=== PATIENT | male | born 1955 | race Hispanic/Latino ===

== ENCOUNTER 2016-09-25 14:31 | Inpatient (IN) | payer OTHER ==
[2016-09-25 14:41] VITALS: BMI 30.7
[2016-09-25 14:59] LABS: ADD MANUAL DIFF? NO
[2016-09-25 15:09] LABS: BASO # 0.02 K/mm3 (0.0-2.0); BASO % 0.4 % (0.0-3.0); GRAN # 4.18 (1.4-6.5); HEMATOCRIT 37.8 % (42.0-52.0); LYMPH # 0.9 (1.2-3.4); LYMPH % 15.8 % (22.0-35.0); MEAN CELL VOLUME 92.2 fL (80.0-105.0); MEAN CORPUSCULAR HEMOGLOBIN 33.7 pg (25.0-35.0); MEAN CORPUSCULAR HGB CONC 36.5 g/dl (31.0-37.0); MEAN PLATELET VOLUME 9.7 fl (7.0-11.0); MONO # 0.4 (0.1-0.6); MONO % 7.8 % (1.0-6.0); PLATELET COUNT 74 10^3/uL (120.0-450.0); WHITE BLOOD COUNT 5.5 10^3/ul (4.5-11.0)
--- NOTE | 2016-09-25 15:12 | ED PDOC ---
Arrival/HPI - General Chief Complaint: Psychiatric Evaluation Time Seen by Provider: 09/25/16 14:35 Historian: Patient - History of Present Illness Narrative History of Present Illness (Text): 09/25/16 15:12 61 year old male presents to the emergency department with depression and suicidal ideation today. He states he has been depressed since his about a year ago. Patient reports suicidal ideation, no plan, stating "I don't care if I live or ." He states he has been drinking excessive alcohol daily. Patient also reports black stool for the past 5 days. No other complaints at this time. Time/Duration: > week Symptom Onset: Gradual Symptom Course: Unchanged Modifying Factors (Text): None Associated Symptoms (Text): None Past Medical History - Provider Review Nursing Documentation Reviewed: Yes - Past History Past History: Non-Contributing - Infectious Disease Hx of Infectious Diseases: None - Cardiac Hx Hypertension: Yes - Pulmonary Hx Pneumonia: Yes Hx Pulmonary Embolism: Yes Other/Comment: L dvt - HEENT Hx HEENT Disorder: Yes (eyeglasees) - Endocrine/Metabolic Hx Hypothyroidism: Yes - Musculoskeletal/Rheumatological Hx Falls: Yes Hx Unsteady Gait: Yes - Gastrointestinal Hx Gastrointestinal Disorders: Yes - Genitourinary/Gynecological Hx Hematuria: Yes Hx Prostate Problems: Yes - Psychiatric Hx Depression: Yes Hx Substance Use: No Other/Comment: Patient stated that he was dignosed with a psychiatric disorder when she was actively addicted to alcohol but cannot rember what he was dignosed with - Surgical History Other/Comment: Bowel Resection, L lung lobectomy - Anesthesia Hx Anesthesia: Yes Hx Anesthesia Reactions: No Hx Malignant Hyperthermia: No Family/Social History - Physician Review Nursing Documentation Reviewed: Yes Family/Social History: Unknown Family HX Smoking Status: Current Some Days Smoker Hx Alcohol Use: Yes (13 yr HX last drink 01/05/93) Hx Substance Use: No Allergies/Home Meds Allergies/Adverse Reactions: Allergies No Known Allergies Allergy (Verified 12/18/15 09:11) Home Medications: Home Meds Medication Instructions Recorded Confirmed Atorvastatin [Lipitor] 20 mg PO DAILY 12/18/15 04/26/16 Apixaban [Eliquis] 2.5 mg PO DAILY 03/29/16 04/26/16 Folic Acid 1 mg PO DAILY 03/29/16 04/26/16 Review of Systems - Physician Review All systems were reviewed & negative as marked: Yes - Review of Systems Respiratory: absent: SOB Cardiovascular: absent: Chest Pain Gastrointestinal: Stool Changes (black stool) Psychiatric: Depression, Suicidal Ideation (no plan) Physical Exam Vital Signs Reviewed: Yes Vital Signs Temp Pulse Resp BP Pulse Ox 09/25/16 16:33 67 18 122/72 96 09/25/16 14:31 99.1 F 75 18 142/83 95 Temperature: Afebrile Blood Pressure: Normal Pulse: Regular Respiratory Rate: Normal Appearance: Positive for: Well-Appearing, Non-Toxic, Comfortable Pain Distress: None Mental Status: Positive for: Alert and Oriented X 3 - Systems Exam Head: Present: Atraumatic, Normocephalic Pupils: Present: PERRL Extroacular Muscles: Present: EOMI Conjunctiva: Present: Normal Mouth: Present: Moist Mucous Membranes Neck: Present: Normal Range of Motion Respiratory/Chest: Present: Clear to Auscultation, Good Air Exchange. No: Respiratory Distress, Accessory Muscle Use Cardiovascular: Present: Regular Rate and Rhythm, Normal S1, S2. No: Murmurs Abdomen: Present: Normal Bowel Sounds. No: Tenderness, Distention, Peritoneal Signs Rectal: Present: Other (Hemmocult positive). No: Gross Blood, Melena Back: Present: Normal Inspection Upper Extremity: Present: Normal Inspection. No: Cyanosis, Edema Lower Extremity: Present: Normal Inspection. No: Edema Neurological: Present: GCS=15, CN II-XII Intact, Speech Normal Skin: Present: Warm, Dry, Normal Color. No: Rashes Psychiatric: Present: Alert, Oriented x 3, Normal Insight, Normal Concentration Medical Decision Making ED Course and Treatment: EKG shows NSR at 71 BPM with normal axis, normal intervals, no acute ischemia. Interpreted by me. 09/25/16 16:[address] Kimble who will admit - Lab Interpretations Lab Results: 09/25/16 14:40 09/25/16 14:40 Lab Results 09/25/16 15:56: Urine Opiates Screen Negative, Urine Methadone Screen Negative, Ur Barbiturates Screen Negative, Ur Phencyclidine Scrn Negative, Ur Amphetamines Screen Negative, U Benzodiazepines Scrn Negative, U Oth Cocaine Metabols Negative, U Cannabinoids Screen Negative 09/25/16 15:56: Urine Color Yellow, Urine Appearance Clear, Urine pH 6.5, Ur Specific [place] <= 1.005, Urine Protein Negative, Urine Glucose (UA) Negative, Urine Ketones Negative, Urine Blood Small H, Urine Nitrate Negative, Urine Bilirubin Negative, Urine Urobilinogen 0.2, Ur Leukocyte Esterase Negative, Urine RBC 2 - 5, Urine WBC 0 - 2, Ur Epithelial Cells 1 - 3, Urine Bacteria Rare 09/25/16 14:40: Salicylates < 1 L, Acetaminophen < 10.0 L 09/25/16 14:40: Sodium 138, Potassium 3.7, Chloride 97 L, Carbon Dioxide 20 L, Anion Gap 25 H, BUN 10, Creatinine 0.9, Est GFR ( Amer) > 60, Est GFR ( Non-Af Amer) > 60, Random Glucose 164 H, Calcium 9.1, Total Bilirubin 1.1, AST 101 H, ALT 58 H, Alkaline Phosphatase 95, Total Protein 7.9, Albumin 4.4, Globulin 3.5, Albumin/Globulin Ratio 1.3 09/25/16 14:40: PT 10.9, INR 1.01, APTT 32.4 H 09/25/16 14:40: WBC 5.5 D, RBC 4.10, Hgb 13.8 L, Hct 37.8 L, MCV 92.2, MCH 33.7 , MCHC 36.5, RDW 15.0 H, Plt Count 74 L, MPV 9.7, Gran % 76.0 H, Lymph % (Auto) 15.8 L, [place] % (Auto) 7.8 H, Eos % (Auto) 0.0 L, Baso % (Auto) 0.4, Gran # 4.18 , Lymph # 0.9 L, [place] # 0.4, Eos # 0.0, Baso # 0.02 - RAD Interpretation Radiology Orders: 09/25/16 14:48 CHEST PORTABLE [RAD] Stat - EKG Interpretation Interpreted by ED Physician: Yes Type: 12 lead EKG - Medication Orders Current Medication Orders: Discontinued Medications Sodium Chloride (Sodium Chloride 0.9%) 1,000 mls @ 999 mls/hr IV .Q1H1M STA Stop: 09/25/16 17:09 Last Admin: 09/25/16 16:20 Dose: 999 mls/hr Pantoprazole Sodium (Protonix Inj) 80 mg IVP STAT STA Stop: 09/25/16 16:20 Last Admin: 09/25/16 16:33 Dose: 80 mg Thiamine HCl (Vitamin B1 Inj) 100 mg IV STAT STA Stop: 09/25/16 16:11 Last Admin: 09/25/16 16:22 Dose: 100 mg - Scribe Statement The provider has reviewed the documentation as recorded by the Adelita Rojas Provider Scribe Attestation: All medical record entries made by the Adelita were at my direction and personally dictated by me. I have reviewed the chart and agree that the record accurately reflects my personal performance of the history, physical exam, medical decision making, and the department course for this patient. I have also personally directed, reviewed, and agree with the discharge instructions and disposition. Disposition/Present on Arrival - Present on Arrival Any Indicators Present on Arrival: Yes History of DVT/PE: Yes History of Uncontrolled Diabetes: No Urinary Catheter: No History of Decub. Ulcer: No History Surgical Site Infection Following: None - Disposition Have Diagnosis and Disposition been Completed?: Yes Diagnosis: GI bleed, Suicidal ideation, Alcohol dependence Disposition: HOSPITALIZED Disposition Time: 16:28 Patient Problems: Current Active Problems Problem Status Onset GI bleed Acute Suicidal ideation Acute Alcohol dependence Acute Condition: STABLE
[2016-09-25 15:15] LABS: ALB/GLOB RATIO 1.3 (1.1-1.8); ALKALINE PHOSPHATASE 95 U/L (38-133); ALT/SGPT 58 U/L (7-56); AST/SGOT 101 U/L (15-59); BILIRUBIN,TOTAL 1.1 mg/dL (0.2-1.3); BLOOD UREA NITROGEN 10 mg/dL (7-21); CALCIUM 9.1 mg/dL (8.4-10.5); CARBON DIOXIDE 20 mmol/L (21-33); CHLORIDE 97 mmol/L (98-107); GFR AFRICAN-AMERICAN > 60; GLUCOSE,RANDOM 164 mg/dL (70-110); POTASSIUM 3.7 mmol/L (3.6-5.0); SODIUM 138 mmol/L (132-148); TOTAL PROTEIN 7.9 g/dL (5.8-8.3)
[2016-09-25 15:21] LABS: INR 1.01 (0.93-1.08); PARTIAL THROMBOPLASTIN TIME 32.4 Seconds (23.7-30.8)
--- NOTE | 2016-09-25 15:36 | RAD ---
HISTORY: psych COMPARISON: 04/22/2016 FINDINGS: LUNGS: No interval consolidated. PLEURA: No significant pleural effusion identified, no pneumothorax apparent. CARDIOVASCULAR: Normal. OSSEOUS STRUCTURES: Left posterior rib deformity -postthoracotomy versus other post traumatic rib fractures with resultant deformity - similar-appearing VISUALIZED UPPER ABDOMEN: Normal. OTHER FINDINGS: Elevated left lateral hemidiaphragm consistent with chronic scarring here IMPRESSION: No interval active disease. Chronic changes as above
[2016-09-25] MEDS ORDERED: Sodium Chloride 0.9% 1,000 ML IV STA (16:09)
[2016-09-25] MEDS ORDERED: Thiamine 100 mg/ml Inj IV STA (16:10)
[2016-09-25 16:21] LABS: PH,URINE 6.5 (4.7-8.0); URINE BILIRUBIN NEGATIVE (NEGATIVE); URINE BLOOD SMALL (NEGATIVE); URINE GLUCOSE (UA) NEGATIVE (NEGATIVE); URINE KETONE NEGATIVE (NEGATIVE); URINE LEUKOCYTE ESTERASE NEGATIVE Leu/uL (NEGATIVE); URINE PROTEIN NEGATIVE mg/dL (<30 mg/dL); URINE UROBILINOGEN 0.2 E.U./dL (<1 E.U./dL)
[2016-09-25 16:22] LABS: URINE APPEARANCE CLEAR (CLEAR); URINE COLOR YELLOW (YELLOW)
[2016-09-25 17:14] LABS: URINE BACTERIA RARE (NEG); URINE WBC 0 - 2 /hpf (0-6)
[2016-09-25] MEDS ORDERED: Multivitamin (MVI) 10 ML, Thiamine 100 MG, Folic Acid 1 MG in Dextrose 5% In Water 1,00... IV ONE (17:26)
--- NOTE | 2016-09-25 18:16 | CP.PCM.HP ---
<Gloria Rice - Last Filed: 09/25/16 18:06> History of Present Illness - History of Present Illness History of Present Illness: CC: Suicidal ideations with melena 61 year old male with past medical history of HLD, HTN, hypothyroidism, COPD, AAA, prediabetes, B/L PE and L LE DVT in November on Eliquis, alcohol abuse, depression and diverticulosis presented to hospital with depression and suicidal ideations. Patient states that he has felt depressed since November of 2015 when his . Patient admits to feeing hopeless on a daily basis but has no plan set to hurt himself. He denies having any HI. Patient has attempted suicide once before in 1992 by trying to hang himself. Patient also complained of loose BM x5 today that were black in color. Stool occult done in ED showed black stool. Patient denies having any melenotic stools or bloody stools prior to this. He also c/o of nausea and "gagging" daily without any vomiting. Patient denies having any fevers, chills, CP, SOB, urinary symptoms. Pt drinks on a daily basis multiple shots of liquor and multiple beers. He denies having any history of DTs. PMHx: stated above Sx: partial colectomy, tonsillectomy, partial lung resection NKDA Meds: see JUL PMD: Dr. Ivey Social: Smoked for "many years" and currently smokes. Daily ETOH use, has used IV heroin in past long time ago Present on Admission - Present on Admission Any Indicators Present on Admission: No Review of Systems - Constitutional Constitutional: Chills. absent: Fever - EENT Eyes: absent: Change in Vision, Other Visual Disturbances Nose/Mouth/Throat: absent: Nasal Congestion, Nasal Discharge, Dysphagia, Sore Throat - Cardiovascular Cardiovascular: absent: Chest Pain, Dyspnea, Leg Edema, Pedal Edema - Gastrointestinal Gastrointestinal: Melena (with loose stools ), Nausea. absent: Abdominal Pain, Bloating, Constipation, Diarrhea, Vomiting - Genitourinary Genitourinary: absent: Dysuria, Urinary Frequency - Musculoskeletal Musculoskeletal: absent: Muscle Cramps, Muscle Weakness, Numbness, Tingling - Integumentary Integumentary: absent: Lesions, Rash - Neurological Neurological: absent: Confusion, Convulsions, Numbness - Psychiatric Psychiatric: Depression, Suicidal Ideation. absent: Anxiety Past Patient History - Infectious Disease Hx of Infectious Diseases: None - Past Social History Smoking Status: Current Some Days Smoker Chewing Tobacco Use: No Cigar Use: No Alcohol: > 2 Drinks/Day Drugs: Denies Home Situation {Lives}: Alone - CARDIAC Hx Cardiac Disorders: No Hx Hypertension: Yes - PULMONARY Hx Tuberculosis: No - NEUROLOGICAL HX Cerebrovascular Accident: No Hx Seizures: No - HEENT Hx HEENT Problems: Yes (eyeglasees) - ENDOCRINE/METABOLIC Hx Hypothyroidism: Yes - HEMATOLOGICAL/ONCOLOGICAL Hx Cancer: No Hx Human Immunodeficiency Virus (HIV): No - MUSCULOSKELETAL/RHEUMATOLOGICAL Hx Falls: Yes Hx Unsteady Gait: Yes - GASTROINTESTINAL Hx Gastrointestinal Disorders: Yes - GENITOURINARY/GYNECOLOGICAL Hx Sexually Transmitted Disorders: No - PSYCHIATRIC Hx Depression: Yes Hx Substance Use: No Other/Comment: Patient stated that he was dignosed with a psychiatric disorder when she was actively addicted to alcohol but cannot rember what he was dignosed with - SURGICAL HISTORY Other/Comment: Bowel Resection, L lung lobectomy - ANESTHESIA Hx Anesthesia: Yes Hx Anesthesia Reactions: No Hx Malignant Hyperthermia: No Meds Allergies/Adverse Reactions: Allergies Allergy/AdvReac Type Severity Reaction Status Date / Time No Known Allergies Allergy Verified 12/18/15 09:11 Physical Exam - Constitutional Appears: Non-toxic, No Acute Distress - Head Exam Head Exam: ATRAUMATIC, NORMAL INSPECTION - Eye Exam Eye Exam: EOMI Pupil Exam: PERRL - ENT Exam ENT Exam: Mucous Membranes Moist - Respiratory Exam Respiratory Exam: Clear to Auscultation Bilateral, NORMAL BREATHING PATTERN. absent: Rales, Rhonchi, Wheezes - Cardiovascular Exam Cardiovascular Exam: REGULAR RHYTHM, +S1, +S2. absent: Diastolic murmur, Gallop , Irregular Rhythm, Rubs - GI/Abdominal Exam GI & Abdominal Exam: Normal Bowel Sounds, Soft. absent: Diminished Bowel Sounds , Distended, Firm, Guarding, Rigid, Tenderness - Rectal Exam Rectal Exam: Black Stool (stool occult done by ED physician ) - Extremities Exam Extremities exam: Negative for: pedal edema, tenderness - Neurological Exam Neurological exam: Alert, Oriented x3 - Psychiatric Exam Psychiatric exam: Normal Affect, Normal Mood - Skin Skin Exam: Dry, Intact, Normal Color, Warm Results - Vital Signs Recent Vital Signs: Last Vital Signs Temp 99.1 F 09/25/16 14:31 Pulse 67 09/25/16 16:33 Resp 18 09/25/16 16:33 BP 122/72 09/25/16 16:33 Pulse Ox 96 09/25/16 16:33 - Labs Result Diagrams: 09/25/16 14:40 09/25/16 14:40 Labs: Laboratory Results - last 24 hr 09/25/16 17:00 BBK History Checked Patient has bt Assessment & Plan - Assessment and Plan (Free Text) Assessment: 61 year old male with past medical history of HTN, HLD, COPD, hypothyroidism, depression, diverticulosis, partial colectomy, B/L PE and LE DVT is admitted for GI bleed. Vital signs are stable. On blood work, patient is anemic at hgb 13.8 MCV is 92.9. Patient's baseline is around 14. Patient also has elevated LFTs Ast 101 ALT 58. UDS is negative, ETOH level is 214. In ED, patient receive 80 mg IV stat, NS bolus and thiamine. 1. GI bleed - Admit to tele floor - GI, Dr. Tello is consulted - NPO - Protonix 40 mg IV - Zofran 4 mg IV q6 - CT abd/pelvis - Will recheck CBC at 9 pm 2. ETOH withdrawal - [facility] protocol - Ativan court and prn - Clonidine 0.1 mg IV TID prn 3. Transaminitis - likely 2/2 ETOH - Will check hepatitis panel - hold all hepatotoxic meds 4. Thrombocytopenia - likely 2/2 ETOH - Will hold heparin. - Will consult heme/onc 5. Depression - 1:1 started - Psych, Dr. Landaverde started 6. Hypothyroidism - will check TSH and T4 - Synthroid 200 mcg qd Will hold home medications: lopressor (GI bleed), Eliquis Prophylaxis: SCDs, protonix Case discussed with attending Dr. Coy - Date & Time Date: 09/25/16 Time: 18:19 <Aziza Coy - Last Filed: 09/25/16 21:30> Results - Vital Signs Recent Vital Signs: Last Vital Signs Temp 99.1 F 09/25/16 19:35 Pulse 67 09/25/16 19:35 Resp 18 09/25/16 19:35 BP 122/72 09/25/16 19:35 Pulse Ox 96 09/25/16 19:16 - Labs Result Diagrams: 09/25/16 14:40 09/25/16 14:40 Labs: Laboratory Results - last 24 hr 09/25/16 17:00 Blood Type O POSITIVE Antibody Screen Negative BBK History Checked Patient has bt Attending/Attestation - Attestation I have personally seen and examined this patient.: Yes I have fully participated in the care of the patient.: Yes I have reviewed all pertinent clinical information: Yes Notes (Text): 09/25/16 21:16 61 year old with past medical history of hypertension, dyslipidemia, hypothyroidism, depression, diverticulosis, bilateral PE and DVT on eliquis and history of chronic alcohol abuse who presents today with complaint of depressed mood and suicidal ideation. He also mentions melena x 5 days. He is admitted to medicine for evaluation of GIB. Hemoglobin is 13.8 with platelet of 79. Will repeat h/h later this evening. Transfuse as needed. CT abd/pelvis is ordered. Eliquis is obviously on hold. GI evaluation is requested. Continue with NPO, IVF, and iv protonix. Given he has history of DVT/PE will request for hematology evaluation if question arises down the course when/if to resume anticoagulation. He has thrombocytopenia likely due to ETOH abuse. If this worsens can consider switching to protonix to pepcid. He has elevated LFTs also likely secondary to ETOH abuse. Will monitor and check hepatitis panel. He was counselled on alcohol abstinence. CIWA protocol, banana bag and ativan court/prn ordered for withdrawal symptoms. Psychiatry evaluation requested for depression and SI. Continue with 1:1 observation for now. Aziza Coy MD Hospitalist.
[2016-09-25] MEDS ORDERED: Sodium Chloride 0.9% 100 ML IV SCH (18:41)
[2016-09-25] MEDS ORDERED: Multivitamin (MVI) 10 ML, Thiamine 100 MG, Folic Acid 1 MG in Sodium Chloride 0.9% 1,00... IV ONE (18:42)
--- NOTE | 2016-09-25 19:01 | CARD ---
APPROVED REPORT EKG Measurement Heart [id number] NE [id number] [id number] <Conclusion> Normal sinus rhythm Normal ECG
[2016-09-25] MEDS ORDERED: Pneumococcal 23-Valent Vaccine IM ONE (19:51)
--- NOTE | 2016-09-26 07:28 | CP.PCM.CON ---
<Tayler Mcneal - Last Filed: 09/26/16 08:50> History of Present Illness - History of Present Illness History of Present Illness: Gastroenterology Fellow/PGY4 Consult Note 61 year old male with history of Depression, Suicidal attempt 1992, Hypertension , Hyperlipidemia, Hypothyroidism, Complicated diverticulitis with abscess s/p partial colectomy over five years ago, Alcohol Abuse, Bilateral PE and Left lower extremity DVT 12/2015 on Eliquis, ambulatory dysfunction, severe osteoarthritis with previous use of tramadol leading to altered mentation presenting with black stools. Patient describes a alternating solid and liquid black tarry stools for about four to five episodes yesterday. He notes alternating normal stool one day with a black stool the following day for the last five days. He states this has never occurred before. He started drinking heavily again after his 11/2015. Quantified as a few shots of vodka and a few beers daily with previous cessation of heavy alcohol intake December 1992. Admits to shortness of breath with exertion to stairs living on third floor. Recent fall causing right ribcage bruising. Denies NSAIDs use, nausea, vomiting, hematemesis, abdominal pain, bloating, heartburn. indigestion , dysphagia, odynophagia, diarrhea, constipation, hematochezia, unintentional weight loss, confusion, leg swelling, scleral icterus, jaundice, or abdominal distension. No prior EGD or colonoscopy. 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 yrs ago[watching it], lle dvt - PULMONARY Hx Respiratory Disorders: Yes (pe both lungs) Hx Pneumonia: Yes Hx Tuberculosis: No - NEUROLOGICAL HX Cerebrovascular Accident: No Hx Seizures: No - HEENT Hx HEENT Problems: Yes (eyeglasees) - ENDOCRINE/METABOLIC Hx Hypothyroidism: Yes - HEMATOLOGICAL/ONCOLOGICAL Hx Cancer: No Hx Human Immunodeficiency Virus (HIV): No Other/Comment: e coli staph infections pt does not know where tx by pmd 2016 - INTEGUMENTARY Other/Comment: multiple tatoos, r great toe 0.5 round dry brown wound,rle multiple bruises dry scab to r knee surrounded by red skin, slight swelling both knees - MUSCULOSKELETAL/RHEUMATOLOGICAL Hx Falls: Yes - GASTROINTESTINAL Hx Gastrointestinal Disorders: Yes (tarry stools x 5 days) - GENITOURINARY/GYNECOLOGICAL Hx Prostate Problems: Yes Hx Sexually Transmitted Disorders: No - PSYCHIATRIC Hx Substance Use: No - SURGICAL HISTORY Other/Comment: Bowel Resection due to abcess, L lung lobectomy pt had pneumonia and fluid solidifies to wall of left lung it was removed, procedure in dr ahuja' s office cystoscope - ANESTHESIA Hx Anesthesia: Yes Hx Anesthesia Reactions: No Hx Malignant Hyperthermia: No Meds Allergies/Adverse Reactions: Allergies Allergy/AdvReac Type Severity Reaction Status Date / Time No Known Allergies Allergy Verified 12/18/15 09:11 - Medications Medications: Current Medications Clonidine HCl (Catapres) 0.1 mg PO TID PRN PRN Reason: Systolic Blood Pressure Levothyroxine Sodium (Synthroid) 200 mcg PO ACB [facility] Lorazepam (Ativan) 2 mg IVP Q6H [facility] PRN Reason: Protocol Last Admin: 09/26/16 01:58 Dose: Not Given Lorazepam (Ativan) 2 mg IVP Q3H PRN; Protocol PRN Reason: Agitation Ondansetron HCl (Zofran Inj) 4 mg IVP Q6H PRN PRN Reason: Nausea/Vomiting Pantoprazole Sodium (Protonix Inj) 40 mg IVP DAILY [facility] Physical Exam - Constitutional Appears: Non-toxic, No Acute Distress - Head Exam Head Exam: ATRAUMATIC, NORMOCEPHALIC - Eye Exam Eye Exam: EOMI, PERRL Pupil Exam: PERRL. absent: Miosis, Mydriatic - ENT Exam ENT Exam: Mucous Membranes Moist, Normal Oropharynx - Neck Exam Neck exam: Positive for: Full Rom, Normal Inspection - Respiratory Exam Respiratory Exam: Clear to Auscultation Bilateral. absent: Rales, Rhonchi, Wheezes - Cardiovascular Exam Cardiovascular Exam: RRR, +S1, +S2. absent: Gallop, Rubs - GI/Abdominal Exam GI & Abdominal Exam: Normal Bowel Sounds, Soft. absent: Distended, Firm, Guarding, Organomegaly, Rebound, Rigid, Tenderness Additional comments: right ribcage bruise, vertical surgical scar - Rectal Exam Rectal Exam: NORMAL INSPECTION. absent: Black Stool, Bloody Stool, Hemorrhoids , Fecal Impaction Additional comments: light yellow soft scant stool in vault - Extremities Exam Extremities exam: Positive for: full ROM. Negative for: pedal edema - Neurological Exam Neurological exam: Alert, Oriented x3 - Psychiatric Exam Psychiatric exam: Normal Affect, Normal Mood - Skin Skin Exam: Dry, Intact, Normal Color, Warm Results - Vital Signs Recent Vital Signs: Last Vital Signs Temp 98.7 F 09/26/16 00:49 Pulse 61 09/26/16 00:49 Resp 20 09/26/16 00:49 BP 130/87 09/26/16 00:49 Pulse Ox 95 09/25/16 21:29 - Labs Result Diagrams: 09/25/16 14:40 09/25/16 14:40 Labs: Laboratory Results - last 24 hr 09/25/16 17:00 Blood Type O POSITIVE Antibody Screen Negative BBK History Checked Patient has bt Assessment & Plan - Assessment and Plan (Free Text) Assessment: 61 year old male with history of Depression, Suicidal attempt 1992, Hypertension , Hyperlipidemia, Hypothyroidism, complicated diverticulitis with abscess s/p partial colectomy over five years ago, Alcohol Abuse, Bilateral PE and Left lower extremity DVT 12/2015 on Eliquis, ambulatory dysfunction, severe osteoarthritis with previous use of tramadol leading to altered mentation presenting with intermittent black stools for five days. laboratory findings with mild drop in hemoglobin/hematocrit on admission and elevated transaminases. No prior EGD or colonoscopy. Plan: >hemodynamically stable >yellow stool on rectal exam >DDx: PUD, arteriovenous malformation, rule out varices (low suspicion), esophagitis/gastritis >hold Eliquis today >EGD planned for Friday >monitor for overt GI blood loss >continue PPI, IVFs >clear liquids >elevated LFTs in setting of alcohol abuse >Hepatitis panel negative >ordered Abdominal Ultrasound >ordered autoimmune workup >further recommendations based on clinical course <Jaun Haile - Last Filed: 09/26/16 10:54> Meds - Medications Medications: Current Medications Clonidine HCl (Catapres) 0.1 mg PO TID PRN PRN Reason: Systolic Blood Pressure Levothyroxine Sodium (Synthroid) 200 mcg PO ACB [facility] Last Admin: 09/26/16 09:54 Dose: 200 mcg Lorazepam (Ativan) 2 mg IVP Q6H [facility] PRN Reason: Protocol Last Admin: 09/26/16 09:51 Dose: 2 mg Lorazepam (Ativan) 2 mg IVP Q3H PRN; Protocol PRN Reason: Agitation Ondansetron HCl (Zofran Inj) 4 mg IVP Q6H PRN PRN Reason: Nausea/Vomiting Pantoprazole Sodium (Protonix Inj) 40 mg IVP DAILY [facility] Last Admin: 09/26/16 09:53 Dose: 40 mg Results - Vital Signs Recent Vital Signs: Last Vital Signs Temp 98.5 F 09/26/16 06:00 Pulse 74 09/26/16 06:00 Resp 18 09/26/16 06:00 BP 131/81 09/26/16 06:00 Pulse Ox 98 09/26/16 06:00 - Labs Result Diagrams: 09/26/16 06:30 09/26/16 05:00 Labs: Laboratory Results - last 24 hr 09/25/16 09/26/16 09/26/16 17:00 05:00 05:30 WBC RBC Hgb Hct MCV MCH MCHC RDW Plt Count MPV Sodium 137 Potassium 4.0 Chloride 102 Carbon Dioxide 28 Anion Gap 11 BUN 8 Creatinine 0.9 Est GFR ( Amer) > 60 Est GFR (Non-Af Amer) > 60 Random Glucose 73 Calcium 8.4 Iron TIBC % Saturation Total Bilirubin 1.7 H AST 79 H ALT 52 Alkaline Phosphatase 79 Total Protein 6.5 Albumin 3.4 Globulin 3.0 Albumin/Globulin Ratio 1.1 Triglycerides 52 Cholesterol 159 LDL Cholesterol Direct 47 HDL Cholesterol 97 H Blood Type O POSITIVE Antibody Screen Negative BBK History Checked Patient has bt 09/26/16 09/26/16 06:30 08:30 WBC 3.0 L D RBC 3.56 Hgb 11.7 L Hct 33.2 L MCV 93.3 MCH 32.9 MCHC 35.2 RDW 15.5 H Plt Count 52 L MPV 11.0 Sodium Potassium Chloride Carbon Dioxide Anion Gap BUN Creatinine Est GFR ( Amer) Est GFR (Non-Af Amer) Random Glucose Calcium Iron 172 TIBC 190 L % Saturation 90 H Total Bilirubin AST ALT Alkaline Phosphatase Total Protein Albumin Globulin Albumin/Globulin Ratio Triglycerides Cholesterol LDL Cholesterol Direct HDL Cholesterol Blood Type Antibody Screen BBK History Checked Attending/Attestation - Attestation I have personally seen and examined this patient.: Yes I have fully participated in the care of the patient.: Yes I have reviewed all pertinent clinical information: Yes Notes (Text): Patient seen and examined with GI fellow. Agree with her note as documented above with the following additions/exceptions. This is a 61 year old male with history of ETOH abuse, depression with prior suicide attempt, complicated diverticulitis with abscess s/p partial colectomy, HTN, HL, PE/DVT (2015) on eliquis who presents with generalized malaise and dark stools. The patient denies any abdominal pain, nausea/vomiting/hematemesis. He has noticed intermittently dark stools, no bright red blood per rectum. He has ETOH abuse and is actively drinking, ETOH level >200 on admission. He has LFT abnormalities with AST: ALT 2:1 c/w ETOH. He has had no further episodes of black stool while in hospital and has yellowish stool on rectal examination. He is hemodynamically stable with Hb 13. Recommend further work up of LFT abnormalities with autoimmune serologies, abdominal ultrasound. He has thrombocytopenia, which may be due to underlying ETOH but cannot r/o cirrhosis ( his INR is currently normal). Monitor H/H. His eloquis is on hold. Continue PPI therapy. Monitor for ETOH withdrawal. Will tentatively plan for EGD evaluation tomorrow, keep LIZZY MORENO. 09/26/16 10:52
[2016-09-26 07:42] LABS: CHOLESTEROL 159 mg/dL (130-200)
[2016-09-26 09:00] LABS: HEMATOCRIT 33.2 % (42.0-52.0); MEAN CELL VOLUME 93.3 fL (80.0-105.0); MEAN CORPUSCULAR HEMOGLOBIN 32.9 pg (25.0-35.0); MEAN CORPUSCULAR HGB CONC 35.2 g/dl (31.0-37.0); RED CELL DISTRIBUTION WIDTH 15.5 % (11.5-14.5)
[2016-09-26 09:07] LABS: ALB/GLOB RATIO 1.1 (1.1-1.8); ALKALINE PHOSPHATASE 79 U/L (38-133); ALT/SGPT 52 U/L (7-56); AST/SGOT 79 U/L (15-59); BILIRUBIN,TOTAL 1.7 mg/dL (0.2-1.3); BLOOD UREA NITROGEN 8 mg/dL (7-21); CALCIUM 8.4 mg/dL (8.4-10.5); CARBON DIOXIDE 28 mmol/L (21-33); CHLORIDE 102 mmol/L (98-107); GFR AFRICAN-AMERICAN > 60; GLUCOSE,RANDOM 73 mg/dL (70-110); SODIUM 137 mmol/L (132-148); TOTAL PROTEIN 6.5 g/dL (5.8-8.3)
[2016-09-26 09:13] LABS: IRON 172 ug/dL (45-180)
[2016-09-26] MEDS: Levothyroxine 200 MCG TAB PO SCH (09:54)
[2016-09-26 12:45] LABS: IMMUNOGLOBULIN G 937.4 mg/dL (700.0-1600.0); IMMUNOGLOBULIN M 129.3 mg/dL (40.0-230.0)
[2016-09-26 12:46] LABS: IMMUNOGLOBULIN A 212.1 mg/dL (70.0-400.0)
[2016-09-26] MEDS ORDERED: Multivitamin (MVI) 10 ML, Thiamine 100 MG, Folic Acid 1 MG in Sodium Chloride 0.9% 1,00... IV ONE (12:54)
--- NOTE | 2016-09-26 13:03 | CP.PCM.PN ---
<Marce Edwards - Last Filed: 09/26/16 12:56> Subjective - Date & Time of Evaluation Date of Evaluation: 09/26/16 Time of Evaluation: 12:56 - Subjective Subjective: Hospitalist note Pt s&e. Pt had regular BM today. Denies bleeding/F/C/N/V/D/CP/SOB/hematemesis/ hematochezia. Had ultrasound done today. Tolerating diet. +amb. Objective - Vital Signs/Intake and Output Vital Signs (last 24 hours): Temp Pulse Resp BP Pulse Ox 98.5 F 64 18 131/81 98 09/26/16 06:00 09/26/16 10:00 09/26/16 06:00 09/26/16 06:00 09/26/16 06:00 - Medications Medications: Current Medications Clonidine HCl (Catapres) 0.1 mg PO TID PRN PRN Reason: Systolic Blood Pressure Multivitamins/Vitamin C 10 ml/Thiamine HCl 100 mg/ Folic Acid 1 mg/ Sodium Chloride 1,011.2 mls @ 100 mls/hr IV .Q10H7M ONE Stop: 09/26/16 23:00 Levothyroxine Sodium (Synthroid) [address] Last Admin: 09/26/16 09:54 Dose: 200 mcg Lorazepam (Ativan) [address] PRN Reason: Protocol Last Admin: 09/26/16 09:51 Dose: 2 mg Lorazepam (Ativan) 2 mg IVP Q3H PRN; Protocol PRN Reason: Agitation Ondansetron HCl (Zofran Inj) 4 mg IVP Q6H PRN PRN Reason: Nausea/Vomiting Pantoprazole Sodium (Protonix Inj) 40 mg IVP DAILY [facility] Last Admin: 09/26/16 09:53 Dose: 40 mg - Labs Labs: 09/26/16 06:30 09/26/16 05:00 PT 10.9 Seconds (9.9-11.8) 09/25/16 14:40 INR 1.01 (0.93-1.08) 09/25/16 14:40 APTT 32.4 Seconds (23.7-30.8) H 09/25/16 14:40 - Constitutional Appears: No Acute Distress - Head Exam Head Exam: ATRAUMATIC, NORMAL INSPECTION, NORMOCEPHALIC - Eye Exam Eye Exam: EOMI, Normal appearance, PERRL Pupil Exam: NORMAL ACCOMODATION, PERRL - ENT Exam ENT Exam: Mucous Membranes Moist, Normal Exam - Neck Exam Neck Exam: Full ROM, Normal Inspection. absent: Lymphadenopathy - Respiratory Exam Respiratory Exam: Clear to Ausculation Bilateral, NORMAL BREATHING PATTERN. absent: Accessory Muscle Use, Respiratory Distress - Cardiovascular Exam Cardiovascular Exam: REGULAR RHYTHM, +S1, +S2. absent: Tachycardia, Murmur - GI/Abdominal Exam GI & Abdominal Exam: Soft, Normal Bowel Sounds. absent: Distended, Firm, Guarding, Rigid, Tenderness - Extremities Exam Extremities Exam: Full ROM, Normal Capillary Refill, Normal Inspection. absent : Joint Swelling, Pedal Edema - Back Exam Back Exam: NORMAL INSPECTION - Neurological Exam Neurological Exam: Alert, Awake, CN II-XII Intact, Normal Gait, Oriented x3 - Psychiatric Exam Psychiatric exam: Normal Affect, Normal Mood - Skin Skin Exam: Dry, Intact, Normal Color, Warm Assessment and Plan - Assessment and Plan (Free Text) Assessment: 61 year old male with past medical history of HTN, HLD, COPD, hypothyroidism, depression, diverticulosis, partial colectomy, B/L PE and LE DVT is admitted for GI bleed. Vital signs are stable. ETOH level is 214. 1. GI bleed - Admitted to tele floor - GI, Dr. Tello is consulted: EGD tomorrow. IVF, PTX - CLD, NPO after midnight for EGD - Protonix 40 mg IV - Zofran 4 mg IV q6 - CT abd/pelvis - Will recheck CBC at 9 pm 2. ETOH withdrawal - [facility] protocol - Ativan court and prn - Clonidine 0.1 mg IV TID prn - Banana bag @100 3. Transaminitis - likely 2/2 ETOH - Will check hepatitis panel - hold all hepatotoxic meds - F/U US reads 4. Thrombocytopenia - likely 2/2 ETOH - Will hold heparin. May resume after EGD - f/u heme/onc 5. Depression - 1:1 started - Psych, Dr. Landaverde -Tx to psych floor tomorrow after EGD 6. Hypothyroidism - Synthroid 200 mcg qd Will hold home medications: lopressor (GI bleed), Eliquis Prophylaxis: SCDs, protonix Dispo: Possible Tx to Psych tomorrow after EGD DW attending <Cindy Olmos MD - Last Filed: 09/26/16 13:16> Objective - Vital Signs/Intake and Output Vital Signs (last 24 hours): Temp Pulse Resp BP Pulse Ox 98.5 F 64 18 131/81 98 09/26/16 06:00 09/26/16 10:00 09/26/16 06:00 09/26/16 06:00 09/26/16 06:00 - Medications Medications: Current Medications Clonidine HCl (Catapres) 0.1 mg PO TID PRN PRN Reason: Systolic Blood Pressure Multivitamins/Vitamin C 10 ml/Thiamine HCl 100 mg/ Folic Acid 1 mg/ Sodium Chloride 1,011.2 mls @ 100 mls/hr IV .Q10H7M ONE Stop: 09/26/16 23:00 Levothyroxine Sodium (Synthroid) [address] Last Admin: 09/26/16 09:54 Dose: 200 mcg Lorazepam (Ativan) [address] PRN Reason: Protocol Last Admin: 09/26/16 09:51 Dose: 2 mg Lorazepam (Ativan) 2 mg IVP Q3H PRN; Protocol PRN Reason: Agitation Ondansetron HCl (Zofran Inj) 4 mg IVP Q6H PRN PRN Reason: Nausea/Vomiting Pantoprazole Sodium (Protonix Inj) 40 mg IVP DAILY [facility] Last Admin: 09/26/16 09:53 Dose: 40 mg - Labs Labs: 09/26/16 06:30 09/26/16 05:00 PT 10.9 Seconds (9.9-11.8) 09/25/16 14:40 INR 1.01 (0.93-1.08) 09/25/16 14:40 APTT 32.4 Seconds (23.7-30.8) H 09/25/16 14:40 Attending/Attestation - Attestation I have personally seen and examined this patient.: Yes I have fully participated in the care of the patient.: Yes I have reviewed all pertinent clinical information, including history, physical exam and plan: Yes Notes (Text): 09/26/16 13:12 Patient was seen and examined with electromedical service engineer .Agreed with resident assessment and plan. 61 Yrs old male with PMH of Alcohol abuse, HTN,DVT and PE was admitted with suicidal ideation and melena.No active bleeding today, hemodynamically stable, Apixiban is on hold for EGD in the morning.We will continue monitoring hemoglobin. Patient is not suicidal today. Management plan was discussed in detail with patient Education was provided.
--- NOTE | 2016-09-26 15:48 | CON ---
DATE: 09/26/2016 HISTORY OF PRESENT ILLNESS: Shortly, the patient is a 61-year-old male with not known prev ious psychiatric history, history of alcohol use and dependence. The patient was sober since 1992; r elapsed on alcohol on 11/07/2015 after patient's . For the past year, the patient wa s drinking, progressively getting depressed. The patient was admitted to the medical floor for GI bl eed. Psych consult was called for evaluation of depressive symptoms as well as possible suicidal javed ation. The patient was seen and examined. Discussed with the medical staff and nursing staff. The patient presented to be alert. The patient reported that he was not doing well for the past 3 years because of a lot of medical issues of his , and 1 year ago patient's . Despite the fact that patient is having a girlfriend, the patient was feeling hopeless and helpless, lonely. The liana ent reported that he started to drink more than usual. Usually patient drinks 1 pint of vodka on a d aily basis and 2 cans of 24 ounces of beer. The patient reported that he had passive suicidal ideati on but no intent or plan. The patient's statement was, "I would be not care if I would be killed by a car, but I will not look for it." The patient reported his energy level is low, appetite is poor. The patient reported anxiety, but most likely it is related to alcohol withdrawal symptoms. The pat ient denied any other drug abuse or dependence. The patient had 2 detoxes in the past; most recent w as in 1992. VITAL SIGNS: Reviewed. Seem to be stable. MEDICATIONS: Reviewed. The patient is on clonidine 0.1 mg 3 times a day as needed, Synthroid; Ativa n 2 mg IV push to q. 3 hours as needed, 2 mg IV push q. 6 hours scheduled; thiamine, multivitamins an d folic acid, Zofran, Protonix as well. LABORATORY DATA: Reviewed. WBC cells low at 3.0. Coagulation reviewed. Urinalysis shows some smal l blood. Toxicology: Alcohol level was 214. Immunology negative. Serology for hepatitis is negati ve. MENTAL STATUS EXAMINATION: The patient appears to be alert, oriented, flat affect. Mood described a s depressed and hopeless. Speech was underproductive. Thought process was coherent and goal directe d. Thought content: The patient denied visual, auditory, or tactile hallucinations. Denied paranoi d ideations. The patient had passive thoughts of being and dying, but no intent or plan. Insig ht and judgment are fair. Impulses are well controlled. IMPRESSION: Rule out adjustment disorder, rule out major depressive disorder, rule out alcohol use d isorder, rule out substance-induced mood disorder. PLAN: This editorial writer offered the patient admission to the psychiatric inpatient unit for further evalua tion and stabilization and medication titration. The patient was willing to do so. This editorial writer is samir cox for medical clearance. This editorial writer educated patient about Wellbutrin and about unit setting. The patient is willing to sign consent for treatment. After medical stabilization, patient will be transferred to the psychiatric inpatient unit. Should you have any questions, give me a call back. Saima Vidal MD cc: [id number] TT: 09/26/2016 15:47:54 Confirmation # [id number] Dictation # [id number] mn
--- NOTE | 2016-09-26 16:17 | US ---
HISTORY: elevated LFTs COMPARISON: None. TECHNIQUE: Sonographic evaluation of the abdomen. FINDINGS: LIVER: Measures 17.4 cm. Diffusely increased echogenicity of the liver parenchyma. Consistent with fatty infiltrate. Smooth contour. No mass. No intrahepatic biliary dilatation. GALLBLADDER: Unremarkable. No gallstones. COMMON BILE DUCT: Measures 4 mm. No stones. No dilatation. PANCREAS: Unremarkable as visualized. No mass. No ductal dilatation. RIGHT KIDNEY: Measures 10.5cm. Normal echogenicity. No calculus, mass, or hydronephrosis. LEFT KIDNEY: Measures 10.4cm. Normal echogenicity. No calculus, mass, or hydronephrosis. SPLEEN: Normal in size and contour. No mass. AORTA: No aneurysmal dilatation. IVC: Unremarkable. OTHER FINDINGS: None. IMPRESSION: Fatty infiltration of the liver. No evidence of biliary obstruction. Otherwise unremarkable.
[2016-09-27] MEDS ORDERED: Folic Acid 1 MG, Thiamine 100 MG, Multivitamin (MVI) 10 ML in Dextrose 5% In Water 1,00... IV SCH (08:00)
[2016-09-27 08:23] LABS: HEMATOCRIT 36.3 % (42.0-52.0); MEAN CELL VOLUME 93.1 fL (80.0-105.0); MEAN CORPUSCULAR HEMOGLOBIN 32.8 pg (25.0-35.0); MEAN CORPUSCULAR HGB CONC 35.3 g/dl (31.0-37.0); RED CELL DISTRIBUTION WIDTH 15.4 % (11.5-14.5)
[2016-09-27 08:32] LABS: INR 0.98 (0.93-1.08)
[2016-09-27 08:34] LABS: WHITE BLOOD COUNT 2.9 10^3/ul (4.5-11.0)
[2016-09-27 08:35] LABS: ALB/GLOB RATIO 1.2 (1.1-1.8); ALKALINE PHOSPHATASE 94 U/L (38-133); ALT/SGPT 51 U/L (7-56); AST/SGOT 75 U/L (15-59); BILIRUBIN,TOTAL 1.9 mg/dL (0.2-1.3); BLOOD UREA NITROGEN 5 mg/dL (7-21); CALCIUM 8.7 mg/dL (8.4-10.5); CARBON DIOXIDE 25 mmol/L (21-33); CHLORIDE 102 mmol/L (95-110); GFR AFRICAN-AMERICAN > 60; GLUCOSE,RANDOM 89 mg/dL (70-110); POTASSIUM 3.4 mmol/L (3.6-5.0); SODIUM 136 mmol/L (132-148); TOTAL PROTEIN 6.9 g/dL (5.8-8.3)
[2016-09-27] MEDS ORDERED: Propofol 10 mg/ml Inj (20 ML) ONE ×2 (10:11→10:25)
[2016-09-27] MEDS ORDERED: Midazolam 2 MG/2 ML VIAL ONE (10:12)
--- NOTE | 2016-09-27 10:42 | CP.PCM.PN ---
Subjective - Date & Time of Evaluation Date of Evaluation: 09/27/16 Time of Evaluation: 10:39 - Subjective Subjective: Patient seen and examined, resting in bed comfortably. No acute events overnight. s/p EGD today showing ulcerated duodenal mucosa in first portion. No evidence of active or recent bleeding noted. Objective - Vital Signs/Intake and Output Vital Signs (last 24 hours): Temp Pulse Resp BP Pulse Ox 98.5 F 65 14 152/84 H 98 09/26/16 16:00 09/27/16 09:07 09/27/16 09:07 09/27/16 09:07 09/27/16 10:11 Intake and Output: 09/27/16 09/27/16 06:59 18:59 Intake Total 1780 1120 Output Total 300 300 Balance 1480 820 - Medications Medications: Current Medications Clonidine HCl (Catapres) 0.1 mg PO TID PRN PRN Reason: Systolic Blood Pressure Folic Acid 1 mg/ Thiamine HCl 100 mg/ Multivitamins/Vitamin C 10 ml/ Dextrose 1 ,011.2 mls @ 150 mls/hr IV .Q6H45M [facility] Sodium Chloride (Sodium Chloride 0.9%) 1,000 mls @ 75 mls/hr IV .[id number] [facility] Stop: 09/27/16 12:46 Levothyroxine Sodium (Synthroid) 200 mcg PO ACB [facility] Last Admin: 09/26/16 09:54 Dose: 200 mcg Lorazepam (Ativan) 2 mg IVP Q6H [facility] PRN Reason: Protocol Last Admin: 09/27/16 01:45 Dose: 2 mg Lorazepam (Ativan) 2 mg IVP Q3H PRN; Protocol PRN Reason: Agitation Ondansetron HCl (Zofran Inj) 4 mg IVP Q6H PRN PRN Reason: Nausea/Vomiting Pantoprazole Sodium (Protonix Ec Tab) 40 mg PO 0630 [facility] - Labs Labs: 09/27/16 08:00 09/27/16 08:00 PT 10.6 Seconds (9.9-11.8) 09/27/16 08:00 INR 0.98 (0.93-1.08) 09/27/16 08:00 APTT 32.4 Seconds (23.7-30.8) H 09/25/16 14:40 Assessment and Plan - Assessment and Plan (Free Text) Assessment: ETOH abuse Anemia, melena - s/p EGD showing ulcerated mucosa in D1 Transaminitis DVT/PE on Eliquis HTN Hypothyroidism Plan: - Advance diet as tolerated - H/H stable, continue to monitor - Continue with oral PPI therapy - Follow up EGD biopsy results - LFTs stable, continue to monitor, awaiting autoimmune panel - From GI perspective, no absolute contraindication to resuming Eliquis if clinically warranted - ETOH cessation counseling - Would recommend outpatient elective colonoscopy since patient has never had procedure before. No ongoing GI issues, will sign off case. Please reconsult as necessary, thank you.
[2016-09-27] MEDS ORDERED: Sodium Chloride 0.9% 1,000 ML IV SCH (10:45)
--- NOTE | 2016-09-27 11:46 | CP.PCM.PN ---
<Marce Edwards - Last Filed: 09/27/16 11:36> Subjective - Date & Time of Evaluation Date of Evaluation: 09/27/16 Time of Evaluation: 11:36 - Subjective Subjective: Hospitalist note Pt s&e. Pt underwent EGD today. Showed duodenal ulcer. NAEON. No bloody BM. Objective - Vital Signs/Intake and Output Vital Signs (last 24 hours): Temp Pulse Resp BP Pulse Ox 98.6 F 73 19 144/91 H 98 09/27/16 11:21 09/27/16 11:21 09/27/16 11:21 09/27/16 11:21 09/27/16 11:21 Intake and Output: 09/27/16 09/27/16 06:59 18:59 Intake Total 1780 1120 Output Total 300 300 Balance 1480 820 - Medications Medications: Current Medications Clonidine HCl (Catapres) 0.1 mg PO TID PRN PRN Reason: Systolic Blood Pressure Sodium Chloride (Sodium Chloride 0.9%) 1,000 mls @ 75 mls/hr IV .[id number] [facility] Stop: 09/27/16 12:46 Levothyroxine Sodium (Synthroid) [address] Last Admin: 09/26/16 09:54 Dose: 200 mcg Lorazepam (Ativan) [address] PRN Reason: Protocol Last Admin: 09/27/16 01:45 Dose: 2 mg Lorazepam (Ativan) 2 mg IVP Q3H PRN; Protocol PRN Reason: Agitation Ondansetron HCl (Zofran Inj) 4 mg IVP Q6H PRN PRN Reason: Nausea/Vomiting Pantoprazole Sodium (Protonix Ec Tab) 40 mg PO 0630 [facility] - Labs Labs: 09/27/16 08:00 09/27/16 08:00 PT 10.6 Seconds (9.9-11.8) 09/27/16 08:00 INR 0.98 (0.93-1.08) 09/27/16 08:00 APTT 32.4 Seconds (23.7-30.8) H 09/25/16 14:40 - Constitutional Appears: No Acute Distress - Head Exam Head Exam: ATRAUMATIC, NORMAL INSPECTION, NORMOCEPHALIC - Eye Exam Eye Exam: EOMI, Normal appearance, PERRL Pupil Exam: NORMAL ACCOMODATION, PERRL - ENT Exam ENT Exam: Mucous Membranes Moist, Normal Exam - Neck Exam Neck Exam: Full ROM, Normal Inspection. absent: Lymphadenopathy - Respiratory Exam Respiratory Exam: Clear to Ausculation Bilateral, NORMAL BREATHING PATTERN - Cardiovascular Exam Cardiovascular Exam: REGULAR RHYTHM, +S1, +S2. absent: Murmur - GI/Abdominal Exam GI & Abdominal Exam: Soft, Normal Bowel Sounds. absent: Distended, Tenderness - Extremities Exam Extremities Exam: Full ROM, Normal Capillary Refill, Normal Inspection. absent : Joint Swelling, Pedal Edema - Back Exam Back Exam: NORMAL INSPECTION - Neurological Exam Neurological Exam: Alert, Awake, CN II-XII Intact, Normal Gait, Oriented x3 - Psychiatric Exam Psychiatric exam: Normal Affect, Normal Mood - Skin Skin Exam: Dry, Intact, Normal Color, Warm Assessment and Plan - Assessment and Plan (Free Text) Assessment: 61 year old male with past medical history of HTN, HLD, COPD, hypothyroidism, depression, diverticulosis, partial colectomy, B/L PE and LE DVT is admitted for GI bleed. Vital signs are stable. ETOH level is 214. 1. GI bleed 2/2 Duedenal ulcer - Admitted to tele floor - GI, Dr. Tello is consulted: EGD: Duodenal ulcer. Out pt follow up for Colonoscopy. OK to restart on Eliquis - Advance diet as tolerated. - Protonix 40 PO BID - Zofran 4 mg IV q6 2. ETOH withdrawal - [facility] protocol - Ativan court and prn - Clonidine 0.1 mg IV TID prn 3. Transaminitis: resolving . - Tbili 1.9 - likely 2/2 ETOH - hold all hepatotoxic meds - US: fatty liver 4. Thrombocytopenia - likely 2/2 ETOH - Will hold heparin. - f/u heme/onc 5. Depression - 1:1 started - Psych, Dr. Landaverde -Tx to psych floor tomorrow after EGD when cleared by [facility] 6. Hypothyroidism - Synthroid 200 mcg qd 7. h/o PE and EL DVT - Eliquis held. - F/u Heme onc when to restart Will hold home medications: lopressor (GI bleed), Eliquis Prophylaxis: SCDs, protonix Dispo: Possible Tx to Psych when thrombocytopenia resolves DW attending <Cindy Olmos MD - Last Filed: 09/27/16 16:02> Objective - Vital Signs/Intake and Output Vital Signs (last 24 hours): Temp Pulse Resp BP Pulse Ox 98.6 F 73 19 144/91 H 98 09/27/16 11:21 09/27/16 11:21 09/27/16 11:21 09/27/16 11:21 09/27/16 11:21 Intake and Output: 09/27/16 09/27/16 06:59 18:59 Intake Total 1780 1120 Output Total 300 300 Balance 1480 820 - Medications Medications: Current Medications Acetaminophen (Tylenol 325mg Tab) 650 mg PO Q6H PRN PRN Reason: Pain, Mild (1-3) Clonidine HCl (Catapres) 0.1 mg PO TID PRN PRN Reason: Systolic Blood Pressure Levothyroxine Sodium (Synthroid) 200 mcg PO ACB [facility] Last Admin: 09/27/16 11:49 Dose: 200 mcg Lorazepam (Ativan) [address] PRN Reason: Protocol Last Admin: 09/27/16 14:06 Dose: 2 mg Lorazepam (Ativan) 2 mg IVP Q3H PRN; Protocol PRN Reason: Agitation Ondansetron HCl (Zofran Inj) 4 mg IVP Q6H PRN PRN Reason: Nausea/Vomiting Pantoprazole Sodium (Protonix Ec Tab) 40 mg PO 0630 [facility] - Labs Labs: 09/27/16 08:00 09/27/16 08:00 PT 10.6 Seconds (9.9-11.8) 09/27/16 08:00 INR 0.98 (0.93-1.08) 09/27/16 08:00 APTT 32.4 Seconds (23.7-30.8) H 09/25/16 14:40 Attending/Attestation - Attestation I have personally seen and examined this patient.: Yes I have fully participated in the care of the patient.: Yes I have reviewed all pertinent clinical information, including history, physical exam and plan: Yes Notes (Text): Patient was seen and examined with medical insurance biller .Agreed with resident assessment and plan. 61 year old male with ETOh abuse and DVT/PE and paroxysmal AF on eliquis. He was admitted with suicidal ideation and melena. Hemoglobin is stable,SP EGD today, shows gastritis and mucosal duodenal ulcer, no active bleeding, patient has worsening thrombocytopenia, likely due to alcohol abuse.We will consult hematology.We will also get Peripheral smear. Management plan was discussed in detail with patient Education was provided.
[2016-09-27] MEDS: Levothyroxine 200 MCG TAB PO SCH (11:49)
--- NOTE | 2016-09-27 12:29 | CON ---
DATE: 09/26/2016 This is the patient's hospital consult on the medical floor. For Dr. Casiano. CHIEF COMPLAINT: Melena, suicidal ideation. HISTORY OF PRESENT ILLNESS: The patient is a 61-year-old male with past history significant for alco hol abuse, depression, hypothyroidism; DVT, on anticoagulation with Eliquis; admitted via the Emergen cy Room after heavy drinking with suicidal ideation as his in the recent past. With this, the patient is now seen. Also, history of heroin use in the past. At this point, the patient is now seen on 1:1 observation in no acute distress, resting comfortably with his blood alcohol leve l noted to be significantly elevated at 214 on admission. ALLERGIES: No known allergies. MEDICATIONS: At this point include lorazepam, IV fluids, Catapres, Protonix, Synthroid, Zofran. PAST MEDICAL HISTORY: As above. Also to include hypertension, hypothyroidism, depression, diverticu losis, status post colon resection secondary to ____, history of pneumonia, left pleurodeses; recentl y diagnosed with pulmonary emboli and deep vein thrombosis. DJD of the knees, hypercoagulable state, chronic obstructive pulmonary disease, history of AFib, aortic stenosis. REVIEW OF SYSTEMS: Essentially negative to questioning. FAMILY HISTORY AND SOCIAL HISTORY: Recent loss of his . Former smoker. History of alcohol use, recent binge. 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 OBJECTIVE: PHYSICAL EXAMINATION: VITAL SIGNS: Temperature 98.5, pulse 97, respirations 20, blood pressure 131/92, pulse ox 99%. HEENT: Unremarkable. NECK: Supple. HEART: Tachy rate, regular rhythm. LUNGS: Clear. ABDOMEN: Obese, soft, and nontender. EXTREMITIES: Minimal decreased range of motion. Faint +1 edema bilateral lower extremities. NEUROLOGIC: Awake, alert and oriented. SKIN: Warm, dry and clear. LABORATORY DATA: The patient's labs were done. White blood cell count of 3.0, hemoglobin 11.7, terrell tocrit 33.2, platelet count of 52,000 with a chem metabolic panel within normal limits except for T-b ramez of 1.7, AST of 79. The patient's INR was 1.0. The patient had a chest x-ray showing no interval active disease, chronic changes post-thoracotomy on the left ____ rib fractures. The patient is scheduled for EGD. The patient had abdominal ultrasound. It was read as fatty infiltration of liver, no evidence of hali iary obstruction. The patient's EKG was done. It was read as normal sinus rhythm, normal EKG. ASSESSMENT: Gastrointestinal bleed, history of partial colectomy, diverticulosis, chronic obstructiv e pulmonary disease, hypertension, suicidal ideation, alcohol abuse, depression, anemia, abnormal LFT s, anticoagulation for deep venous thrombosis and pulmonary embolism on hold, pancytopenia? PLAN: The patient is to follow up as per gastrointestinal senior wind energy consultant's recommendations with EGD. e patient is noted to have a percent saturation of iron 90%. He was taking iron tablets at home. We will discontinue these. We will monitor clinically and with labs with detox as indicated as per Dr. Coy with PPI as indicated with restart of his anticoagulation once it is safe as per senior wind energy consultant's recommendations. Eliquis is on hold for now. Ye Pal MD cc: [phone] TT: 09/27/2016 12:29:14 Confirmation # [id number] Dictation # [id number] mn
--- NOTE | 2016-09-27 14:10 | PN ---
DATE: 09/27/2016 This is the patient's hospital visit on the medical floor. For Dr. Casiano. SUBJECTIVE: The patient is a 61-year-old male seen sitting up in bed with 1:1 observation as he had reported suicidal ideation when he was under the influence of alcohol with a blood alcohol level of 2 14 on admission. He is now feeling much better, in no acute distress; however, he has developed sign ificant pancytopenic indices for which we will follow him with no active bleeding at present. He als o has stopped taking his iron tablets as he had an iron percent saturation of 90%. Also, Eliquis is on hold as he is being evaluated for GI bleed as the patient is known to have a hypercoagulable state . PHYSICAL EXAMINATION: VITAL SIGNS: Temperature 98.6, pulse 73, respirations 19, blood pressure 144/91 and pulse ox 98%. HEENT: Unremarkable. NECK: Supple. HEART: Regular rate. LUNGS: Clear. ABDOMEN: Soft, nontender. EXTREMITIES: Faint +1 edema, left greater than right lower extremity. NEUROLOGIC: Awake, alert, and oriented x 3. SKIN: Warm, dry and clear. LABORATORY DATA: The patient's labs were done. White blood cell count of 2.9 with an absolute neutr ophil count not done; it will be ordered for the morning. He did have a hemoglobin of 12.8, hematocr it 36.3 with a platelet count of 43,000. We will ask for a manual platelet count with the next labs drawn. There is no active bleeding. Also to inspection of the palate, there is no petechia noted. The patient's chem metabolic panel showed a potassium of 3.4 with a T-bili of 1.9, AST of 75. Otherw ise, normal chem metabolic panel. INR yesterday 0.98. Hepatitis A, B, C testing was negative. Urin alysis 2 days prior showed small amount of blood. The patient did have an evaluation by Dr. Reynoso with EGD done earlier today with the findings of duod enal mucosal ulcer, gastritis. ASSESSMENT: Gastrointestinal bleed, peptic ulcer disease, history of partial colectomy, suicidal javed ations, alcohol abuse, depression, anemia, abnormal LFTs, history of deep venous thrombosis/pulmonary embolism, hypercoagulable state with Eliquis on hold until cleared by gastrointestinal consultants. PPI continued. Iron tablets discontinued with withdrawal precautions for his alcohol abuse as per Eric Kimble and Dr. Coy. Prognosis for this patient is guarded. Will monitor clinically and with labs . Hypokalemia was also to be corrected. Will check a manual platelet count in the morning along wit h an absolute neutrophil count. Ye Pal MD cc: [phone] TT: 09/27/2016 14:10:03 Confirmation # [id number] Dictation # [id number] mn
--- NOTE | 2016-09-27 20:04 | PN ---
DATE: 09/27/2016 The patient is a 61-year-old male with history of alcohol use disorder. The patient was ad mitted on the medical floor for evaluation of GI bleed. Psych consult was called for evaluation of d epressive symptoms. The patient was found to be depressed, hopeless and helpless, had passive wish t o be . The patient was making statements like, "If I will be killed by a car, I would not mind." The patient was in agreement to be transferred to the psychiatric inpatient unit, but patient's claudine telets are going down, and the patient is not medically stable. This engineering writer had prolonged conversati on with Dr. Olmos today. Most likely, patient will be cleared by medical team over the weekend and p atient will be ready for transfer. Vital signs are stable. There are no signs of withdrawal. MEDICATIONS: Reviewed. Tylenol, clonidine, Synthroid, Ativan, Zofran, Protonix, multivitamins, thia mine and folic acid was given through IV. P.o. will be started. LABORATORY DATA: Reviewed. WBC cells 2.9, platelet count 43. MENTAL STATUS EXAMINATION: The patient appears to be alert and oriented, flat affect. The patient a t times tearful. Mood described as depressed. Affect was constricted, mood congruent. Thought proc ess was coherent and goal directed. Thought content: The patient denied visual, auditory, or tactil e hallucinations, homicidal ideations. The patient still has passive wish to be and feeling of hopelessness. Insight and judgment improving. Impulses are well controlled. IMPRESSION: Rule out major depressive disorder, rule out adjustment disorder with depressed and anxi ous mood. The patient's a year ago. The patient has multiple medical issues. Plea se see medical team note for more detailed information. PLAN: The patient needs to be transferred to psychiatric inpatient unit after medical stabilization. Case was discussed with psychiatrist motion graphics designer. Plan was discussed in detail. Dr. Fajardo will follow up on this patient tomorrow with a plan to transfer him. Meanwhile, the patient does not need to be on 1:1. Continue Ativan for alcohol withdrawal symptoms, thiamin and folic acid and the patient nee ds to be transferred. Medications were discussed. Wellbutrin would benefit the patient. The patien t needs to be evaluated by social security specialist. Should you have any questions, give me a call back. Saima Vidal MD cc: [phone] TT: 09/27/2016 20:03:52 Confirmation # [id number] Dictation # [id number] sn
[2016-09-28 08:02] LABS: BASO # 0.01 K/mm3 (0.0-2.0); BASO % 0.4 % (0.0-3.0); EOS # 0.1 (0.0-0.7); EOS % 4.5 % (1.5-5.0); GRAN % 56.9 % (50.0-68.0); HEMATOCRIT 33.9 % (42.0-52.0); LYMPH # 0.6 (1.2-3.4); MEAN CELL VOLUME 94.4 fL (80.0-105.0); MEAN CORPUSCULAR HEMOGLOBIN 32.9 pg (25.0-35.0); MEAN CORPUSCULAR HGB CONC 34.8 g/dl (31.0-37.0); MEAN PLATELET VOLUME 10.2 fl (7.0-11.0); MONO # 0.4 (0.1-0.6); MONO % 14.2 % (1.0-6.0); PLATELET COUNT 48 10^3/uL (120.0-450.0); RED CELL DISTRIBUTION WIDTH 15.7 % (11.5-14.5)
[2016-09-28] MEDS: Levothyroxine 200 MCG TAB PO SCH (08:18)
[2016-09-28] MEDS: Pantoprazole 40 mg EC Tab PO SCH (08:21)
[2016-09-28 08:23] LABS: ALB/GLOB RATIO 1.1 (1.1-1.8); ALKALINE PHOSPHATASE 76 U/L (38-133); ALT/SGPT 52 U/L (7-56); AST/SGOT 74 U/L (15-59); BILIRUBIN,TOTAL 1.2 mg/dL (0.2-1.3); BLOOD UREA NITROGEN 6 mg/dL (7-21); CALCIUM 8.8 mg/dL (8.4-10.5); CARBON DIOXIDE 27 mmol/L (21-33); CHLORIDE 104 mmol/L (95-110); GFR AFRICAN-AMERICAN > 60; GLUCOSE,RANDOM 75 mg/dL (70-110); POTASSIUM 3.2 mmol/L (3.6-5.0); SODIUM 139 mmol/L (132-148)
[2016-09-28 08:26] LABS: ADD MANUAL DIFF? NO; WHITE BLOOD COUNT 2.5 10^3/ul (4.5-11.0)
--- NOTE | 2016-09-28 11:57 | CON ---
DATE: 09/28/2016 SUBJECTIVE: The patient is a 61-year-old male with a history of alcohol use disorder, who was admitted to the medical floor for evaluation of GI bleed. Psychiatrist following the patient, robb hand to patient's reported depression and wishes. The patient was agreeable to transfer to the ps ychiatric unit once he is medically cleared and continues to be agreeable at this time. I met with t he patient at bedside and he reports continued depression; however, he denies having any suicidal tho ughts. He reports some hopelessness. He presents as oriented, with fair focus and eye contact, cohe rent with goal directed thought process. Delusions were not elicited and he denies having any halluc inations or any major discomfort at this time. Insight and judgment are considered fair. LABORATORY DATA AND CURRENT VITALS: Were reviewed. MEDICATIONS: Psychiatric medications include Ativan 2 mg IV q. 3 p.r.n. agitation. Ativan 2 mg IV q . 6 scheduled. ASSESSMENT: Rule out major depressive disorder, rule out adjustment disorder with depressed and anxi ous mood, as well as alcohol use disorder. RECOMMENDATIONS: The patient will be transferred to psychiatric inpatient unit once he is medically stabilized. Again, the patient does not need to be on a 1:1. Patient is still agreeable for this tr ansfer as of this morning. Please continue Ativan for alcohol withdrawal symptoms and please do not forget to taper this medication as tolerated. Oliva Fajardo MD cc: [id number] TT: 09/28/2016 11:56:55 Confirmation # [id number] Dictation # [id number] rima
--- NOTE | 2016-09-28 12:27 | CP.PCM.PN ---
<Gloria Rice - Last Filed: 09/28/16 12:17> Subjective - Date & Time of Evaluation Date of Evaluation: 09/28/16 Time of Evaluation: 12:17 - Subjective Subjective: HOSPITALIST PROGRESS NOTE Pt is seen and examined at bedside. No acute events overnight. Patient is tolerating diet. Denies having any CP, SOB, abd pain, N/V/D/C. Patient states that he is able to walk to bathroom with support. Objective - Vital Signs/Intake and Output Vital Signs (last 24 hours): Temp Pulse Resp BP Pulse Ox 98.7 F 65 19 125/81 97 09/28/16 06:00 09/28/16 06:00 09/28/16 06:00 09/28/16 06:00 09/28/16 06:00 Intake and Output: 09/28/16 09/28/16 06:59 18:59 Intake Total 660 Balance 660 - Medications Medications: Current Medications Acetaminophen (Tylenol 325mg Tab) 650 mg PO Q6H PRN PRN Reason: Pain, Mild (1-3) Clonidine HCl (Catapres) 0.1 mg PO TID PRN PRN Reason: Systolic Blood Pressure Levothyroxine Sodium (Synthroid) 200 mcg PO ACB [facility] Last Admin: 09/28/16 08:18 Dose: 200 mcg Lorazepam (Ativan) 2 mg IVP Q3H PRN; Protocol PRN Reason: Agitation Lorazepam (Ativan) [address] PRN Reason: Protocol Last Admin: 09/28/16 11:38 Dose: Not Given Ondansetron HCl (Zofran Inj) 4 mg IVP Q6H PRN PRN Reason: Nausea/Vomiting Pantoprazole Sodium (Protonix Ec Tab) 40 mg PO 0630 [facility] Last Admin: 09/28/16 08:21 Dose: 40 mg - Labs Labs: 09/28/16 07:00 09/28/16 05:00 PT 10.6 Seconds (9.9-11.8) 09/27/16 08:00 INR 0.98 (0.93-1.08) 09/27/16 08:00 APTT 32.4 Seconds (23.7-30.8) H 09/25/16 14:40 - Constitutional Appears: Non-toxic, No Acute Distress - Head Exam Head Exam: ATRAUMATIC - ENT Exam ENT Exam: Mucous Membranes Moist - Respiratory Exam Respiratory Exam: absent: Accessory Muscle Use, Respiratory Distress - GI/Abdominal Exam GI & Abdominal Exam: Soft. absent: Distended, Firm, Guarding, Rigid, Tenderness - Neurological Exam Neurological Exam: Alert, Awake, Oriented x3 - Psychiatric Exam Psychiatric exam: Normal Affect, Normal Mood - Skin Skin Exam: Dry, Intact, Normal Color, Warm Assessment and Plan - Assessment and Plan (Free Text) Assessment: 61 year old male with past medical history of HTN, HLD, COPD, hypothyroidism, depression, diverticulosis, partial colectomy, B/L PE and LE DVT is admitted for GI bleed. Vital signs are stable. ETOH level is 214. 1. GI bleed 2/2 Duedenal ulcer - Admitted to tele floor - GI, Dr. Tello is consulted: EGD: Duodenal ulcer. Out pt follow up for Colonoscopy. - Advance diet as tolerated. - Protonix 40 PO BID - Zofran 4 mg IV q6 2. ETOH withdrawal - [facility] protocol - Ativan [address] and 2mg q3 prn - Clonidine 0.1 mg IV TID prn 3. Transaminitis: resolving . - Tbili 1.9 - likely 2/2 ETOH - hold all hepatotoxic meds - US: fatty liver 4. Thrombocytopenia - likely 2/2 ETOH - Will hold heparin. - daily CBC with diff and manual platelet count 5. leukopenia - Will continue to monitor 6. Depression - 1:1 started - Psych, Dr. Landaverde -Tx to psych floor tomorrow after EGD when cleared by [facility] 7. Hypothyroidism - Synthroid 200 mcg qd 8. h/o PE and EL DVT - Per GI and heme, ok to restart eliquis - Eliquid 2.5 mg po qd Will hold home medications: lopressor (GI bleed), Eliquis Prophylaxis: SCDs, protonix Dispo: Possible Tx to Psych when thrombocytopenia and leukopenia resolve DW attending <Aziza Coy - Last Filed: 09/28/16 12:45> Objective - Vital Signs/Intake and Output Vital Signs (last 24 hours): Temp Pulse Resp BP Pulse Ox 98.7 F 65 19 125/81 97 09/28/16 06:00 09/28/16 06:00 09/28/16 06:00 09/28/16 06:00 09/28/16 06:00 Intake and Output: 09/28/16 09/28/16 06:59 18:59 Intake Total 660 Balance 660 - Medications Medications: Current Medications Acetaminophen (Tylenol 325mg Tab) 650 mg PO Q6H PRN PRN Reason: Pain, Mild (1-3) Apixaban (Eliquis) 2.[address] PRN Reason: Protocol Clonidine HCl (Catapres) 0.1 mg PO TID PRN PRN Reason: Systolic Blood Pressure Potassium Chloride (Potassium Chloride 20 Meq/100 Ml) 20 meq in 100 mls @ 50 mls/hr IVPB Q2H COURT Stop: 09/28/16 16:44 Levothyroxine Sodium (Synthroid) 200 mcg PO ACB [facility] Last Admin: 09/28/16 08:18 Dose: 200 mcg Lorazepam (Ativan) 2 mg IVP Q3H PRN; Protocol PRN Reason: Agitation Lorazepam (Ativan) [address] PRN Reason: Protocol Last Admin: 09/28/16 11:38 Dose: Not Given Ondansetron HCl (Zofran Inj) 4 mg IVP Q6H PRN PRN Reason: Nausea/Vomiting Pantoprazole Sodium (Protonix Ec Tab) 40 mg PO 0630 [facility] Last Admin: 09/28/16 08:21 Dose: 40 mg - Labs Labs: 09/28/16 07:00 09/28/16 05:00 PT 10.6 Seconds (9.9-11.8) 09/27/16 08:00 INR 0.98 (0.93-1.08) 09/27/16 08:00 APTT 32.4 Seconds (23.7-30.8) H 09/25/16 14:40 Attending/Attestation - Attestation I have personally seen and examined this patient.: Yes I have fully participated in the care of the patient.: Yes I have reviewed all pertinent clinical information, including history, physical exam and plan: Yes Notes (Text): 09/28/16 12:38 61 year old male with past medical history of depression, alcohol abuse, DVT/PE and paroxysmal afib who presented with depressed mood and suicidal ideation. He also complained of melena. He was started on protonix. He was seen by GI and underwent EGD with findings of gastritis and duodenal ulcer without active bleeding. He is also being followed by hematology for thrombocytopenia (today's number is 48 with manual count of 55). His eliquis was initially held on presentation, however can be resumed now as per GI and hematology. I did explain to him at length regarding risks vs benefits of anticoagulation given his history of DVT/ PE/afib on one hand and chronic ETOH abuse and thrombocytopenia on the other. He acknowledges risk and states he will quit drinking. Will replete and repeat potassium. LFTs are improving. He complains of weakness and PT evaluation is requested. He is being seen by psychiatry for depression. Plan is for possible transfer to inpatient psychiatry unit tomorrow if labs improve and he is cleared by PT. Aziza Coy MD Hospitalist.
[2016-09-28] MEDS ORDERED: Potassium Chloride 20 mEq ER Tab PO ONE (13:41)
[2016-09-28] MEDS ORDERED: Magnesium Sulfate 2 GM in Sodium Chloride 0.9% 100 ML IVPB ONE (13:54)
--- NOTE | 2016-09-28 13:56 | PN ---
DATE: 09/28/[address] Casiano. SUBJECTIVE: The patient is a 61-year-old male seen sitting up in bed in no acute distress, feeling b ever[place], status post EGD by Dr. Reynoso, which showed ulcerative duodenal mucosa, but no active or recent bleeding. With this, we will restart Eliquis at a low dose as he has significant problems hypercoag ulable issues. History of deep venous thrombosis and pulmonary embolism. Dr. Reynoso reports no absol [place] contraindications to resume the Eliquis and we will do so. With his platelet count was significa ntly compromised has modestly improved as has his white blood cell count with splenic sequestration s uspected due to the patient had heavy alcohol abuse recently. With this, we will monitor clinically and consider transfer to psych once this had been improved along with his absolute neutrophil count w hich is also compromised at present. PHYSICAL EXAMINATION: VITAL SIGNS: Temperature 98.7, pulse 65, respirations 19, blood pressure 125/81, pulse ox 97%. HEENT: Unremarkable. NECK: Supple. HEART: Regular rate. LUNGS: Clear. ABDOMEN: Soft, nontender. EXTREMITIES: Faint +1 edema. NEUROLOGIC: Awake, alert and oriented. LABORATORY DATA: The patient's labs were done. White blood cell count of 2.5 with an absolute neutr ophil count of 1.4, hemoglobin 11.8, hematocrit 33.9, platelet count of 48,000, a manual 55,000. [place] m panel shows a potassium of 3.2. AST of 74 with a T-bili done now down to 1.2 from elevated at 1.7 on this admission. ASSESSMENT: Duodenal ulcer and gastrointestinal bleed, hypercoagulable state on Eliquis, ETOH abuse/ withdrawal, thrombocytopenia, leukopenia, suicidal ideation, depression, hypothyroidism. PLAN: After conversation with Dr. Casiano, we will restart low dose Eliquis along with Carafate for GI prophylaxis with his platelets and white blood cell count to be monitored with consideration for t ransfer to the psych floor once he is stable medically. Prognosis for this patient is guarded. Ye Pal MD cc: [phone] TT: 09/28/2016 13:55:04 Confirmation # [id number] Dictation # [id number]
[2016-09-28 15:59] VITALS: RESP 17; O2SAT 95
[2016-09-28] MEDS: Sucralfate 1 gm/10 ml Oral Susp UD PO SCH (17:28)
[2016-09-28 23:15] LABS: LKM-1 Ab (IgG) <=20.0 U (<=20.0)
[2016-09-29] MEDS: Pantoprazole 40 mg EC Tab PO SCH (06:57)
[2016-09-29] MEDS: Levothyroxine 200 MCG TAB PO SCH (07:30)
[2016-09-29 08:49] LABS: ADD MANUAL DIFF? NO
[2016-09-29 09:06] LABS: BASO # 0.02 K/mm3 (0.0-2.0); BASO % 0.6 % (0.0-3.0); EOS # 0.1 (0.0-0.7); EOS % 4.2 % (1.5-5.0); GRAN # 1.74 (1.4-6.5); GRAN % 55.6 % (50.0-68.0); HEMATOCRIT 35.2 % (42.0-52.0); LYMPH # 0.6 (1.2-3.4); LYMPH % 20.4 % (22.0-35.0); MEAN CELL VOLUME 96.4 fL (80.0-105.0); MEAN CORPUSCULAR HEMOGLOBIN 32.9 pg (25.0-35.0); MEAN CORPUSCULAR HGB CONC 34.1 g/dl (31.0-37.0); MEAN PLATELET VOLUME 10.6 fl (7.0-11.0); MONO # 0.6 (0.1-0.6); MONO % 19.2 % (1.0-6.0); PLATELET COUNT 53 10^3/uL (120.0-450.0); WHITE BLOOD COUNT 3.1 10^3/ul (4.5-11.0)
[2016-09-29 09:14] LABS: ALKALINE PHOSPHATASE 71 U/L (38-133); ALT/SGPT 62 U/L (7-56); AST/SGOT 88 U/L (15-59); BILIRUBIN,TOTAL 1.1 mg/dL (0.2-1.3); BLOOD UREA NITROGEN 5 mg/dL (7-21); CALCIUM 9.1 mg/dL (8.4-10.5); CARBON DIOXIDE 29 mmol/L (21-33); CHLORIDE 103 mmol/L (98-107); GFR AFRICAN-AMERICAN > 60; GLUCOSE,RANDOM 86 mg/dL (70-110); POTASSIUM 3.9 mmol/L (3.6-5.0); SODIUM 138 mmol/L (132-148); TOTAL PROTEIN 6.3 g/dL (5.8-8.3)
[2016-09-29] MEDS: Sucralfate 1 gm/10 ml Oral Susp UD PO SCH ×2 (10:01→17:06)
--- NOTE | 2016-09-29 13:12 | CP.PCM.DIS ---
<Jayden Castro - Last Filed: 09/30/16 13:13> Provider - Provider Date of Admission: 09/25/16 16:27 Attending physician: Aziza Coy MD Primary care physician: Van Ivey MD Consults: Dr. Nkechi Vidal Time Spent in preparation of Discharge (in minutes): 35 Hospital Course - Lab Results Lab Results: Most Recent Lab Values WBC 3.1 10^3/ul (4.5-11.0) L D 09/29/16 08:10 RBC 3.65 10^6/uL (3.5-6.1) 09/29/16 08:10 Hgb 12.0 gm/dL (14.0-18.0) L 09/29/16 08:10 Hct 35.2 % (42.0-52.0) L 09/29/16 08:10 MCV 96.4 fL (80.0-105.0) 09/29/16 08:10 MCH 32.9 pg (25.0-35.0) 09/29/16 08:10 MCHC 34.1 g/dl (31.0-37.0) 09/29/16 08:10 RDW 16.0 % (11.5-14.5) H 09/29/16 08:10 Plt Count 53 10^3/uL (120.0-450.0) L 09/29/16 08:10 Manual Plt Count 65 K/mm3 (120-450) L* 09/29/16 08:10 MPV 10.6 fl (7.0-11.0) 09/29/16 08:10 Gran % 55.6 % (50.0-68.0) 09/29/16 08:10 Lymph % (Auto) 20.4 % (22.0-35.0) L 09/29/16 08:10 [place] % (Auto) 19.2 % (1.0-6.0) H 09/29/16 08:10 Eos % (Auto) 4.2 % (1.5-5.0) 09/29/16 08:10 Baso % (Auto) 0.6 % (0.0-3.0) 09/29/16 08:10 Gran # 1.74 (1.4-6.5) 09/29/16 08:10 Lymph # 0.6 (1.2-3.4) L 09/29/16 08:10 [place] # 0.6 (0.1-0.6) 09/29/16 08:10 Eos # 0.1 (0.0-0.7) 09/29/16 08:10 Baso # 0.02 K/mm3 (0.0-2.0) 09/29/16 08:10 PT 10.6 Seconds (9.9-11.8) 09/27/16 08:00 INR 0.98 (0.93-1.08) 09/27/16 08:00 APTT 32.4 Seconds (23.7-30.8) H 09/25/16 14:40 Sodium 138 mmol/L (132-148) 09/29/16 08:10 Potassium 3.9 mmol/L (3.6-5.0) 09/29/16 08:10 Chloride 103 mmol/L (98-107) 09/29/16 08:10 Carbon Dioxide 29 mmol/L (21-33) 09/29/16 08:10 Anion Gap 10 (10-20) 09/29/16 08:10 BUN 5 mg/dL (7-21) L 09/29/16 08:10 Creatinine 1.0 mg/dL (0.5-1.4) 09/29/16 08:10 Est GFR ( Amer) > 60 09/29/16 08:10 Est GFR (Non-Af Amer) > 60 09/29/16 08:10 Random Glucose 86 mg/dL (70-110) 09/29/16 08:10 Calcium 9.1 mg/dL (8.4-10.5) 09/29/16 08:10 Magnesium 1.6 mg/dL (1.7-2.2) L 09/28/16 13:00 Iron 172 ug/dL (45-180) 09/26/16 08:30 TIBC 190 ug/dL (261-462) L 09/26/16 08:30 % Saturation 90 % (20-55) H 09/26/16 08:30 Ferritin 571.0 ng/mL 09/26/16 05:00 Total Bilirubin 1.1 mg/dL (0.2-1.3) 09/29/16 08:10 AST 88 U/L (15-59) H 09/29/16 08:10 ALT 62 U/L (7-56) H 09/29/16 08:10 Alkaline Phosphatase 71 U/L (38-133) 09/29/16 08:10 Total Protein 6.3 g/dL (5.8-8.3) 09/29/16 08:10 Albumin 3.2 g/dL (3.0-4.8) 09/29/16 08:10 Globulin 3.1 gm/dL 09/29/16 08:10 Albumin/Globulin Ratio 1.0 (1.1-1.8) L 09/29/16 08:10 Triglycerides 52 mg/dL (35-160) 09/26/16 05:30 Cholesterol 159 mg/dL (130-200) 09/26/16 05:30 LDL Cholesterol Direct 47 mg/dL (0-129) 09/26/16 05:30 HDL Cholesterol 97 mg/dL (29-60) H 09/26/16 05:30 TSH 3rd Generation 0.76 mIU/mL (0.46-4.68) 09/25/16 14:40 Urine Color Yellow (YELLOW) 09/25/16 15:56 Urine Appearance Clear (CLEAR) 09/25/16 15:56 Urine pH 6.5 (4.7-8.0) 09/25/16 15:56 Ur Specific [place] <= 1.005 (1.005-1.035) 09/25/16 15:56 Urine Protein Negative mg/dL (<30 mg/dL) 09/25/16 15:56 Urine Glucose (UA) Negative mg/dL (NEGATIVE) 09/25/16 15:56 Urine Ketones Negative mg/dL (NEGATIVE) 09/25/16 15:56 Urine Blood Small (NEGATIVE) H 09/25/16 15:56 Urine Nitrate Negative (NEGATIVE) 09/25/16 15:56 Urine Bilirubin Negative (NEGATIVE) 09/25/16 15:56 Urine Urobilinogen 0.2 E.U./dL (<1 E.U./dL) 09/25/16 15:56 Ur Leukocyte Esterase Negative Ace/uL (NEGATIVE) 09/25/16 15:56 Urine RBC 2 - 5 /hpf (0-2) 09/25/16 15:56 Urine WBC 0 - 2 /hpf (0-6) 09/25/16 15:56 Ur Epithelial Cells 1 - 3 /hpf (0-5) 09/25/16 15:56 Urine Bacteria Rare (NEG) 09/25/16 15:56 Salicylates < 1 mg/dL (2.0-20.0) L 09/25/16 14:40 Urine Opiates Screen Negative (NEGATIVE) 09/25/16 15:56 Urine Methadone Screen Negative (NEGATIVE) 09/25/16 15:56 Acetaminophen < 10.0 ug/ml (10.0-20.0) L 09/25/16 14:40 Ur Barbiturates Screen Negative (NEGATIVE) 09/25/16 15:56 Ur Phencyclidine Scrn Negative (NEGATIVE) 09/25/16 15:56 Ur Amphetamines Screen Negative (NEGATIVE) 09/25/16 15:56 U Benzodiazepines Scrn Negative (NEGATIVE) 09/25/16 15:56 U Oth Cocaine Metabols Negative (NEGATIVE) 09/25/16 15:56 U Cannabinoids Screen Negative (NEGATIVE) 09/25/16 15:56 Alcohol, Quantitative 214 mg/dL (0-10) H 09/25/16 15:00 IgG 937.4 mg/dL (700.0-1600.0) 09/26/16 08:30 IgA 212.1 mg/dL (70.0-400.0) 09/26/16 08:30 IgM 129.3 mg/dL (40.0-230.0) 09/26/16 08:30 Anti-Mitochondrial Ab Negative (Negative) 09/26/16 08:30 Anti-Smooth Muscle Ab Negative (Negative) 09/26/16 08:30 Liver/Kid Microsomes Ab <=20.0 U (<=20.0) 09/26/16 08:30 Hepatitis A IgM Ab Negative (NEGATIVE) 09/25/16 14:40 Hep Bs Antigen Negative (NEGATIVE) 09/25/16 14:40 Hep B Core IgM Ab Negative (NEGATIVE) 09/25/16 14:40 Hepatitis C Antibody Negative (NEGATIVE) 09/25/16 14:40 Blood Type O POSITIVE 09/25/16 17:00 Antibody Screen Negative 09/25/16 17:00 BBK History Checked Patient has bt 09/25/16 17:00 - Hospital Course Hospital Course: H&P: 61 year old male with past medical history of HLD, HTN, hypothyroidism, COPD, AAA, prediabetes, B/L PE and L LE DVT in November on Eliquis, alcohol abuse, depression and diverticulosis presented to hospital with depression and suicidal ideations. Patient states that he has felt depressed since November of 2015 when his . Patient admits to feeing hopeless on a daily basis but has no plan set to hurt himself. He denies having any HI. Patient has attempted suicide once before in 1992 by trying to hang himself. Patient also complained of loose BM x5 today that were black in color. Stool occult done in ED showed black stool. Patient denies having any melenotic stools or bloody stools prior to this. He also c/o of nausea and "gagging" daily without any vomiting. Patient denies having any fevers, chills, CP, SOB, urinary symptoms. Pt drinks on a daily basis multiple shots of liquor and multiple beers. He denies having any history of DTs. Hospital Course: Patient is a 61 y/o M who presented with depression and suicidal ideation. He complained of loose BM with black color and stool occult was positive. GI was consulted. Initial chest xray showed no acute findings. Initial abdominal ultrasound showed fatty infiltration of the liver, no evidence of biliary obstruction. He was found to have elevated liver enzymes which improved. An EGD was performed showing duodenal ulcer. He was found to be thrombocytopenic with leukopenia and hematology was consulted. Due to his hypercoagulable state, he was resumed on Eliquis. His thrombocytopenia and leukopenia improved. Due to his depression, psychiatry was consulted and he was determined a candidate of the psychiatry floor. He was determined medically stable for discharge to psychiatry floor. This is a brief summary of the patient's stay at this facility, for more detail , see patient's full chart. - Date & Time of H&P Date of H&P: 09/25/16 Time of H&P: 18:06 Discharge Exam - Head Exam Head Exam: ATRAUMATIC - Eye Exam Eye Exam: EOMI, Normal appearance, PERRL Pupil Exam: NORMAL ACCOMODATION, PERRL - ENT Exam ENT Exam: Mucous Membranes Moist, Normal Oropharynx - Respiratory Exam Respiratory Exam: NORMAL BREATHING PATTERN. absent: Rales, Rhonchi, Wheezes - Cardiovascular Exam Cardiovascular Exam: REGULAR RHYTHM, +S1, +S2. absent: Gallop, Rubs, Systolic Murmur - GI/Abdominal Exam GI & Abdominal Exam: Normal Bowel Sounds, Soft. absent: Tenderness - Extremities Exam Extremities exam: normal capillary refill, normal inspection, pedal pulses present - Back Exam Back exam: NORMAL INSPECTION. absent: rash noted, tenderness - Neurological Exam Neurological exam: Alert, CN II-XII Intact, Oriented x3 - Psychiatric Exam Psychiatric exam: Depressed - Skin Skin Exam: Dry, Intact, Normal Color, Warm Discharge Plan - Follow Up Plan Condition: STABLE Disposition: DISCHARGE TO [facility] Instructions: Gastrointestinal Bleeding (DC), Abuse of Alcohol (DC), Suicide Prevention for Adults (DC), Suicide Prevention for Adults (GEN), Thrombocytopenia (DC) Additional Instructions: Referrals: Van Ivey MD [Primary Care Provider] - <Aziza Coy - Last Filed: 10/06/16 15:29> Provider - Provider Date of Admission: 09/25/16 16:27 Attending physician: Aziza Coy MD Primary care physician: Van Ivey MD Hospital Course - Lab Results Lab Results: Most Recent Lab Values WBC 3.5 10^3/ul (4.5-11.0) L 09/30/16 06:40 RBC 3.64 10^6/uL (3.5-6.1) 09/30/16 06:40 Hgb 12.0 gm/dL (14.0-18.0) L 09/30/16 06:40 Hct 35.2 % (42.0-52.0) L 09/30/16 06:40 MCV 96.7 fL (80.0-105.0) 09/30/16 06:40 MCH 33.0 pg (25.0-35.0) 09/30/16 06:40 MCHC 34.1 g/dl (31.0-37.0) 09/30/16 06:40 RDW 16.0 % (11.5-14.5) H 09/30/16 06:40 Plt Count 64 10^3/uL (120.0-450.0) L 09/30/16 06:40 Manual Plt Count 70 K/mm3 (120-450) L* 09/30/16 06:40 MPV 10.0 fl (7.0-11.0) 09/30/16 06:40 Gran % 58.9 % (50.0-68.0) 09/30/16 06:40 Lymph % (Auto) 18.7 % (22.0-35.0) L 09/30/16 06:40 [place] % (Auto) 19.0 % (1.0-6.0) H 09/30/16 06:40 Eos % (Auto) 2.8 % (1.5-5.0) 09/30/16 06:40 Baso % (Auto) 0.6 % (0.0-3.0) 09/30/16 06:40 Gran # 2.08 (1.4-6.5) 09/30/16 06:40 Lymph # 0.7 (1.2-3.4) L 09/30/16 06:40 [place] # 0.7 (0.1-0.6) H 09/30/16 06:40 Eos # 0.1 (0.0-0.7) 09/30/16 06:40 Baso # 0.02 K/mm3 (0.0-2.0) 09/30/16 06:40 PT 10.6 Seconds (9.9-11.8) 09/27/16 08:00 INR 0.98 (0.93-1.08) 09/27/16 08:00 APTT 32.4 Seconds (23.7-30.8) H 09/25/16 14:40 Sodium 133 mmol/L (132-148) 09/30/16 06:40 Potassium 3.9 mmol/L (3.6-5.0) 09/30/16 06:40 Chloride 100 mmol/L (98-107) 09/30/16 06:40 Carbon Dioxide 30 mmol/L (21-33) 09/30/16 06:40 Anion Gap 7 (10-20) L 09/30/16 06:40 BUN 8 mg/dL (7-21) 09/30/16 06:40 Creatinine 1.0 mg/dL (0.5-1.4) 09/30/16 06:40 Est GFR ( Amer) > 60 09/30/16 06:40 Est GFR (Non-Af Amer) > 60 09/30/16 06:40 Random Glucose 87 mg/dL (70-110) 09/30/16 06:40 Calcium 9.0 mg/dL (8.4-10.5) 09/30/16 06:40 Magnesium 1.6 mg/dL (1.7-2.2) L 09/28/16 13:00 Iron 172 ug/dL (45-180) 09/26/16 08:30 TIBC 190 ug/dL (261-462) L 09/26/16 08:30 % Saturation 90 % (20-55) H 09/26/16 08:30 Ferritin 571.0 ng/mL 09/26/16 05:00 Total Bilirubin 1.1 mg/dL (0.2-1.3) 09/30/16 06:40 AST 95 U/L (15-59) H 09/30/16 06:40 ALT 66 U/L (7-56) H 09/30/16 06:40 Alkaline Phosphatase 70 U/L (38-133) 09/30/16 06:40 Total Protein 6.5 g/dL (5.8-8.3) 09/30/16 06:40 Albumin 3.5 g/dL (3.0-4.8) 09/30/16 06:40 Globulin 3.0 gm/dL 09/30/16 06:40 Albumin/Globulin Ratio 1.2 (1.1-1.8) 09/30/16 06:40 Triglycerides 52 mg/dL (35-160) 09/26/16 05:30 Cholesterol 159 mg/dL (130-200) 09/26/16 05:30 LDL Cholesterol Direct 47 mg/dL (0-129) 09/26/16 05:30 HDL Cholesterol 97 mg/dL (29-60) H 09/26/16 05:30 TSH 3rd Generation 0.76 mIU/mL (0.46-4.68) 09/25/16 14:40 Urine Color Yellow (YELLOW) 09/25/16 15:56 Urine Appearance Clear (CLEAR) 09/25/16 15:56 Urine pH 6.5 (4.7-8.0) 09/25/16 15:56 Ur Specific [place] <= 1.005 (1.005-1.035) 09/25/16 15:56 Urine Protein Negative mg/dL (<30 mg/dL) 09/25/16 15:56 Urine Glucose (UA) Negative mg/dL (NEGATIVE) 09/25/16 15:56 Urine Ketones Negative mg/dL (NEGATIVE) 09/25/16 15:56 Urine Blood Small (NEGATIVE) H 09/25/16 15:56 Urine Nitrate Negative (NEGATIVE) 09/25/16 15:56 Urine Bilirubin Negative (NEGATIVE) 09/25/16 15:56 Urine Urobilinogen 0.2 E.U./dL (<1 E.U./dL) 09/25/16 15:56 Ur Leukocyte Esterase Negative Ace/uL (NEGATIVE) 09/25/16 15:56 Urine RBC 2 - 5 /hpf (0-2) 09/25/16 15:56 Urine WBC 0 - 2 /hpf (0-6) 09/25/16 15:56 Ur Epithelial Cells 1 - 3 /hpf (0-5) 09/25/16 15:56 Urine Bacteria Rare (NEG) 09/25/16 15:56 Salicylates < 1 mg/dL (2.0-20.0) L 09/25/16 14:40 Urine Opiates Screen Negative (NEGATIVE) 09/25/16 15:56 Urine Methadone Screen Negative (NEGATIVE) 09/25/16 15:56 Acetaminophen < 10.0 ug/ml (10.0-20.0) L 09/25/16 14:40 Ur Barbiturates Screen Negative (NEGATIVE) 09/25/16 15:56 Ur Phencyclidine Scrn Negative (NEGATIVE) 09/25/16 15:56 Ur Amphetamines Screen Negative (NEGATIVE) 09/25/16 15:56 U Benzodiazepines Scrn Negative (NEGATIVE) 09/25/16 15:56 U Oth Cocaine Metabols Negative (NEGATIVE) 09/25/16 15:56 U Cannabinoids Screen Negative (NEGATIVE) 09/25/16 15:56 Alcohol, Quantitative 214 mg/dL (0-10) H 09/25/16 15:00 IgG 937.4 mg/dL (700.0-1600.0) 09/26/16 08:30 IgA 212.1 mg/dL (70.0-400.0) 09/26/16 08:30 IgM 129.3 mg/dL (40.0-230.0) 09/26/16 08:30 MAT Screen Positive (Negative) H 09/26/16 08:30 MAT Titer 1:80 Titer (<1:40) H 09/26/16 08:30 MAT Titer 2 TEST NOT PERFORMED 09/26/16 08:30 MAT Pattern Homogeneous H 09/26/16 08:30 MAT Pattern 2 TEST NOT PERFORMED 09/26/16 08:30 Anti-Mitochondrial Ab Negative (Negative) 09/26/16 08:30 Anti-Smooth Muscle Ab Negative (Negative) 09/26/16 08:30 Liver/Kid Microsomes Ab <=20.0 U (<=20.0) 09/26/16 08:30 Hepatitis A IgM Ab Negative (NEGATIVE) 09/25/16 14:40 Hep Bs Antigen Negative (NEGATIVE) 09/25/16 14:40 Hep B Core IgM Ab Negative (NEGATIVE) 09/25/16 14:40 Hepatitis C Antibody Negative (NEGATIVE) 09/25/16 14:40 Blood Type O POSITIVE 09/25/16 17:00 Antibody Screen Negative 09/25/16 17:00 BBK History Checked Patient has bt 09/25/16 17:00 Attending/Attestation - Attestation I have personally seen and examined this patient.: Yes I have fully participated in the care of the patient.: Yes I have reviewed all pertinent clinical information, including history, physical exam and plan: Yes Notes (Text): 10/06/16 15:26 61 year old male with past medical history of depression, alcohol abuse, DVT/PE and paroxysmal afib who presented with depressed mood and suicidal ideation. He also complained of melena. He was started on protonix and underwent EGD with findings of gastritis and duodenal ulcer without active bleeding. He was also seen by hemaotology for leukopenia/thrombocytopenia which is stable and improved. His eliquis is resumed as per GI/hematology. I did explain to him at length regarding risks vs benefits of anticoagulation given his history of DVT/PE/afib on one hand and chronic ETOH abuse and thrombocytopenia on the other. He acknowledges risk and states he will quit drinking. He complains of chronic knee pain. Will resume his home dose of tramadol and follow up with PT recommendations. He will otherwise be transferred to inpatient psychiatric unit with medical follow up. Aziza Coy MD Hospitalist.
--- NOTE | 2016-09-29 15:46 | PN ---
DATE: 09/29/2016 This is the patient's hospital visit on the medical floor. For Dr. Casiano. SUBJECTIVE: The patient is a 61-year-old male seen sitting up in bed, feeling better with recent EGD showing ulcerative duodenal mucosa with PPI prescribed by Dr. Reynoso. He has history of DVT and pulm onary embolus, which Eliquis was on hold and now restarted with platelets to be monitored as his plat elet count was low as was his white blood cell count with the patient now for transfer to psychiatry as his labs have modestly improved. He is in no acute distress. OBJECTIVE: PHYSICAL EXAMINATION: VITAL SIGNS: Temperature 98.8, pulse 68, respirations 17, blood pressure 142/86, pulse ox 97%. HEENT: Unremarkable. NECK: Supple. HEART: Regular rate. LUNGS: Clear. ABDOMEN: Obese, soft, and nontender. EXTREMITIES: Faint +1 edema. NEUROLOGIC: Awake, alert, and oriented x 3. LABORATORY DATA: The patient's labs were done with a white blood cell count of 3.1 and absolute neut rophil count of 1.74, hemoglobin 12.0, hematocrit 35.2, platelet count of 53,000 with a manual 65,000 . Chem metabolic panel within normal range except for an AST of 88, ALT of 62. ASSESSMENT: For this patient is that of duodenal ulcer with gastrointestinal bleed?, hypercoagulable state on Eliquis restarted, ETOH abuse/withdrawal, depression, thrombocytopenia, leukopenia improved , suicidal ideation and hypothyroidism. PLAN: After conversation with Dr. Casiano as there was no active bleeding, we will continue his low dose Eliquis 2.5 twice a day along with Carafate and GI prophylaxis with medicines as per Dr. Reynoso i ncluding Protonix with the Carafate. He is now cleared for transfer to the psych floor for his depre ssion and suicidal ideation history. We will continue present medical regimen with labs to be monito red as there is no active bleeding at this time. Ye Pal MD cc: [id number] TT: 09/29/2016 15:46:10 Confirmation # [id number] Dictation # [id number]
[2016-09-30] MEDS: Pantoprazole 40 mg EC Tab PO SCH (05:57)
[2016-09-30 07:09] LABS: BASO # 0.02 K/mm3 (0.0-2.0); BASO % 0.6 % (0.0-3.0); EOS # 0.1 (0.0-0.7); EOS % 2.8 % (1.5-5.0); GRAN # 2.08 (1.4-6.5); GRAN % 58.9 % (50.0-68.0); HEMATOCRIT 35.2 % (42.0-52.0); LYMPH # 0.7 (1.2-3.4); LYMPH % 18.7 % (22.0-35.0); MEAN CELL VOLUME 96.7 fL (80.0-105.0); MEAN CORPUSCULAR HGB CONC 34.1 g/dl (31.0-37.0); MONO # 0.7 (0.1-0.6); PLATELET COUNT 64 10^3/uL (120.0-450.0); WHITE BLOOD COUNT 3.5 10^3/ul (4.5-11.0)
[2016-09-30 07:20] LABS: ALB/GLOB RATIO 1.2 (1.1-1.8); ALKALINE PHOSPHATASE 70 U/L (38-133); ALT/SGPT 66 U/L (7-56); AST/SGOT 95 U/L (15-59); BILIRUBIN,TOTAL 1.1 mg/dL (0.2-1.3); BLOOD UREA NITROGEN 8 mg/dL (7-21); CARBON DIOXIDE 30 mmol/L (21-33); CHLORIDE 100 mmol/L (98-107); GFR AFRICAN-AMERICAN > 60; GLUCOSE,RANDOM 87 mg/dL (70-110); POTASSIUM 3.9 mmol/L (3.6-5.0); SODIUM 133 mmol/L (132-148); TOTAL PROTEIN 6.5 g/dL (5.8-8.3)
[2016-09-30 08:13] LABS: ADD MANUAL DIFF? NO
--- NOTE | 2016-09-30 08:17 | CP.PCM.PN ---
Addendum entered and electronically signed by Jayden Castro DO 09/30/16 08:28: Patient had witnessed fall. Dr. Sanchez arrived to re-assess patient. Original Note: <Jayden Castro - Last Filed: 09/30/16 08:10> Subjective - Date & Time of Evaluation Date of Evaluation: 09/30/16 Time of Evaluation: 08:11 - Subjective Subjective: Code star note: Patient is a 61 y/o M with past medical history of HTN, HLD, COPD, hypothyroidism, depression, diverticulosis, partial colectomy, B/L PE and LE DVT , who presented with SI and depression. Code star was called. Per nursing, patient ambulated to restroom and had ambulated back to the bed. The patient then stood up and right knee buckled and patient sat down in the bed and slid to the floor. No witnessed head, back, or buttock trauma. Patient was evaluated and was able to move right leg but not fully extend the knee. No loss of sensation. Old healing lesion on right knee. Pain 8/10. Objective - Vital Signs/Intake and Output Vital Signs (last 24 hours): Temp Pulse Resp BP Pulse Ox 98.8 F 67 17 154/97 H 95 09/29/16 06:00 09/29/16 17:07 09/29/16 06:00 09/29/16 17:07 09/29/16 06:00 Intake and Output: 09/30/16 09/30/16 06:59 18:59 Intake Total 780 Balance 780 - Medications Medications: Current Medications Acetaminophen (Tylenol 325mg Tab) 650 mg PO Q6H PRN PRN Reason: Pain, Mild (1-3) Apixaban (Eliquis) 2.5 mg PO BID [facility] PRN Reason: Protocol Last Admin: 09/29/16 17:06 Dose: 2.5 mg Atorvastatin Calcium (Lipitor) 20 mg PO DIN [facility] Last Admin: 09/29/16 16:28 Dose: 20 mg Folic Acid (Folic Acid) 1 mg PO DAILY [facility] Last Admin: 09/29/16 10:01 Dose: 1 mg Levothyroxine Sodium (Synthroid) 200 mcg PO ACB [facility] Last Admin: 09/29/16 07:30 Dose: 200 mcg Lorazepam (Ativan) 1 mg PO Q6 [facility] PRN Reason: Protocol Lorazepam (Ativan) 1 mg PO Q3 PRN; Protocol PRN Reason: Symptoms of alcohol withdrawl Metoprolol Tartrate (Lopressor) 25 mg PO BID [facility] Last Admin: 09/29/16 17:07 Dose: 25 mg Pantoprazole Sodium (Protonix Ec Tab) 40 mg PO 0630 [facility] Last Admin: 09/30/16 05:57 Dose: 40 mg Sucralfate (Carafate Oral Susp) 1 gm PO BID [facility] Last Admin: 09/29/16 17:06 Dose: 1 gm Tramadol HCl (Ultram) 25 mg PO BID PRN PRN Reason: Pain, severe (8-10) Last Admin: 09/29/16 18:11 Dose: 25 mg Tramadol HCl (Ultram) 25 mg PO STAT STA Stop: 09/30/16 08:09 - Labs Labs: 09/30/16 06:40 09/30/16 06:40 PT 10.6 Seconds (9.9-11.8) 09/27/16 08:00 INR 0.98 (0.93-1.08) 09/27/16 08:00 APTT 32.4 Seconds (23.7-30.8) H 09/25/16 14:40 - Constitutional Appears: Non-toxic, No Acute Distress - Head Exam Head Exam: ATRAUMATIC, NORMOCEPHALIC - Eye Exam Eye Exam: EOMI, Normal appearance, PERRL Pupil Exam: NORMAL ACCOMODATION, PERRL - Neck Exam Neck Exam: Normal Inspection. absent: Tenderness - Respiratory Exam Respiratory Exam: Clear to Ausculation Bilateral, NORMAL BREATHING PATTERN. absent: Rales, Rhonchi, Wheezes - Cardiovascular Exam Cardiovascular Exam: REGULAR RHYTHM, +S1, +S2. absent: Gallop, Rubs, Murmur - GI/Abdominal Exam GI & Abdominal Exam: Soft, Normal Bowel Sounds. absent: Tenderness - Extremities Exam Extremities Exam: Tenderness (lateral aspect of right knee). absent: Full ROM ( cannot fully extend right knee), Joint Swelling, Normal Inspection (old healing lesion on right knee), Pedal Edema - Back Exam Back Exam: absent: muscle spasm, NORMAL INSPECTION (old bruise on left shoulder) , paraspinal tenderness, rash noted, tenderness - Neurological Exam Neurological Exam: Alert, Awake, CN II-XII Intact, Oriented x3 - Psychiatric Exam Psychiatric exam: Normal Affect, Normal Mood - Skin Skin Exam: Dry, Intact, Normal Color, Warm Assessment and Plan - Assessment and Plan (Free Text) Assessment: Right knee pain s/p fall. Code star called. Plan: Right knee pain * three view knee x-ray ordered * tramadol for pain control * ice pack for swelling <Nickolas HESTER,Cindy - Last Filed: 09/30/16 14:25> Objective - Vital Signs/Intake and Output Vital Signs (last 24 hours): Temp Pulse Resp BP Pulse Ox 98.4 F 70 17 125/67 95 09/30/16 06:00 09/30/16 09:21 09/30/16 06:00 09/30/16 09:21 09/30/16 06:00 Intake and Output: 09/30/16 09/30/16 06:59 18:59 Intake Total 780 780 Balance 780 780 - Medications Medications: Current Medications Acetaminophen (Tylenol 325mg Tab) 650 mg PO Q6H PRN PRN Reason: Pain, Mild (1-3) Apixaban (Eliquis) 2.5 mg PO BID [facility] PRN Reason: Protocol Last Admin: 09/30/16 09:20 Dose: 2.5 mg Atorvastatin Calcium (Lipitor) 20 mg PO DIN [facility] Last Admin: 09/29/16 16:28 Dose: 20 mg Folic Acid (Folic Acid) 1 mg PO DAILY [facility] Last Admin: 09/30/16 09:21 Dose: 1 mg Levothyroxine Sodium (Synthroid) 200 mcg PO ACB [facility] Last Admin: 09/30/16 09:22 Dose: 200 mcg Lorazepam (Ativan) 1 mg PO Q6 [facility] PRN Reason: Protocol Last Admin: 09/30/16 13:10 Dose: 1 mg Lorazepam (Ativan) 1 mg PO Q3 PRN; Protocol PRN Reason: Symptoms of alcohol withdrawl Last Admin: 09/30/16 09:20 Dose: 1 mg Metoprolol Tartrate (Lopressor) 25 mg PO BID [facility] Last Admin: 09/30/16 09:21 Dose: 25 mg Pantoprazole Sodium (Protonix Ec Tab) 40 mg PO 0630 [facility] Last Admin: 09/30/16 05:57 Dose: 40 mg Sucralfate (Carafate Oral Susp) 1 gm PO BID [facility] Last Admin: 09/30/16 09:20 Dose: 1 gm Tramadol HCl (Ultram) 25 mg PO BID PRN PRN Reason: Pain, severe (8-10) Last Admin: 09/29/16 18:11 Dose: 25 mg - Labs Labs: 09/30/16 06:40 09/30/16 06:40 PT 10.6 Seconds (9.9-11.8) 09/27/16 08:00 INR 0.98 (0.93-1.08) 09/27/16 08:00 APTT 32.4 Seconds (23.7-30.8) H 09/25/16 14:40 Attending/Attestation - Attestation I have personally seen and examined this patient.: Yes I have fully participated in the care of the patient.: Yes I have reviewed all pertinent clinical information, including history, physical exam and plan: Yes Notes (Text): 09/30/16 14:25 Patient was seen and examined with medical accounting clerk .Agreed with resident assessment and plan. Patient x ray is negative for any fracture, has chronic osteoarthiric changes.There is no hematoma. Patient is alert,awake and oriented.There is no focal deficit.Hemoglobin is stable.Thrombocytopenia is improving.Patient will be discharged to Psychiatry for inpatient treatment of depression. Management plan was discussed in detail with patient Education was provided. <Luciana Sanchez - Last Filed: 09/30/16 15:47> Objective - Vital Signs/Intake and Output Vital Signs (last 24 hours): Temp Pulse Resp BP Pulse Ox 98.4 F 70 17 125/67 95 09/30/16 06:00 09/30/16 09:21 09/30/16 06:00 09/30/16 09:21 09/30/16 06:00 Intake and Output: 09/30/16 09/30/16 06:59 18:59 Intake Total 780 1260 Balance 780 1260 - Medications Medications: Current Medications Acetaminophen (Tylenol 325mg Tab) 650 mg PO Q6H PRN PRN Reason: Pain, Mild (1-3) Last Admin: 09/30/16 14:36 Dose: 650 mg Apixaban (Eliquis) 2.5 mg PO BID [facility] PRN Reason: Protocol Last Admin: 09/30/16 09:20 Dose: 2.5 mg Atorvastatin Calcium (Lipitor) 20 mg PO DIN [facility] Last Admin: 09/29/16 16:28 Dose: 20 mg Folic Acid (Folic Acid) 1 mg PO DAILY [facility] Last Admin: 09/30/16 09:21 Dose: 1 mg Levothyroxine Sodium (Synthroid) 200 mcg PO ACB [facility] Last Admin: 09/30/16 09:22 Dose: 200 mcg Lorazepam (Ativan) 1 mg PO Q6 [facility] PRN Reason: Protocol Last Admin: 09/30/16 13:10 Dose: 1 mg Lorazepam (Ativan) 1 mg PO Q3 PRN; Protocol PRN Reason: Symptoms of alcohol withdrawl Last Admin: 09/30/16 09:20 Dose: 1 mg Metoprolol Tartrate (Lopressor) 25 mg PO BID [facility] Last Admin: 09/30/16 09:21 Dose: 25 mg Pantoprazole Sodium (Protonix Ec Tab) 40 mg PO 0630 [facility] Last Admin: 09/30/16 05:57 Dose: 40 mg Sucralfate (Carafate Oral Susp) 1 gm PO BID [facility] Last Admin: 09/30/16 09:20 Dose: 1 gm Tramadol HCl (Ultram) 25 mg PO BID PRN PRN Reason: Pain, severe (8-10) Last Admin: 09/29/16 18:11 Dose: 25 mg - Labs Labs: 09/30/16 06:40 09/30/16 06:40 PT 10.6 Seconds (9.9-11.8) 09/27/16 08:00 INR 0.98 (0.93-1.08) 09/27/16 08:00 APTT 32.4 Seconds (23.7-30.8) H 09/25/16 14:40
--- NOTE | 2016-09-30 08:50 | CON ---
DATE: 09/29/2016 HISTORY OF PRESENT ILLNESS: The patient is a 61-year-old male with a history of alcohol us e disorder as well as depression who is being followed by psychiatry on the medical floor until he is medically cleared for transfer to the psychiatric floor. I met with patient at bedside yesterday an d today, and patient continues to be agreeable to transfer to the psychiatric unit once he is medical ly cleared. The patient reports continued depression; however, he denies having any wishes or suicidal thoughts, though he does admit to some hopelessness. He presented oriented with fair focus and eye contact coherent with goal directed and logical thought process. Delusions were not elicited and he denies having any hallucinations or at this time. He is tolerating current taper of At darling very well. Insight and judgment are considered fair. Laboratory data and current vitals were reviewed by this provider. Current psychiatric medications include Ativan 2 mg q. 3 p.r.n. as well as Ativan 1 mg IV q. 6 tapere d from 2 mg IV q. 6 yesterday. IMPRESSION: Rule out major depressive disorder, rule out adjustment disorder with depressed and anxi ous mood. The patient has severe alcohol use disorder. RECOMMENDATIONS: I spoke with Dr. Coy, and patient may be transferred to the psychiatric unit when he is medically cleared and the patient is still agreeable to this. Please continue Ativan for alco hol withdrawal symptoms and continue to taper as the patient tolerates. Oliva Fajardo MD cc: [id number] TT: 09/29/2016 16:28:30 Confirmation # [id number] Dictation # [id number] an
[2016-09-30] MEDS: Sucralfate 1 gm/10 ml Oral Susp UD PO SCH ×2 (09:20→17:17)
[2016-09-30] MEDS: Levothyroxine 200 MCG TAB PO SCH (09:22)
--- NOTE | 2016-09-30 10:31 | RAD ---
PROCEDURE: Right Knee Radiographs. HISTORY: code star COMPARISON: None. FINDINGS: BONES: Normal. No fracture. JOINTS: There is joint space narrowing in the lateral aspect of the patellofemoral joint JOINT EFFUSION: Small joint effusion OTHER FINDINGS: None. IMPRESSION: Joint space narrowing patellofemoral joint
[2016-09-30 11:24] VITALS: TEMP 98.4
[2016-09-30 17:22] VITALS: BP 145/77; PULSE 62
--- NOTE | 2016-09-30 18:00 | PN ---
DATE: 09/30/2016 The patient's hospital visit on the medical floor. For Dr. Casiano. SUBJECTIVE: The patient is a 61-year-old male for transfer today to the [facility] for followup francianoris liz for suicidal ideation and depression. He has ulcers of his duodenum, as per Dr. Reynoso, gastroe nterology, history of DVT, PE, with Eliquis recently restarted. The patient is otherwise known to aguirre ve thrombocytopenic indices with neutropenia, now modestly improved, and he is otherwise in no acute distress. For transfer today. PHYSICAL EXAMINATION: VITAL SIGNS: Temperature 98.4, pulse 62, respirations 17, blood pressure 145/77, pulse ox 97%. HEENT: Unremarkable. NECK: Supple. HEART: Regular rate. Occasional ectopic beat. LUNGS: Clear. ABDOMEN: Obese, soft, nontender. EXTREMITIES: Faint +1 edema. NEUROLOGIC: Awake, alert, and oriented x 3. LABORATORY DATA: The patient's labs were done. White blood cell count of 3.5, with an absolute neut rophil count of 2.08; hemoglobin 12.0; hematocrit 35.2; platelet count 64,000, with a manual count of 70,000. His chem metabolic panel showed AST of 95, ALT of 66. His MAT screen was positive with a t iter of 1:80 homogeneous pattern. Hepatitis A, B, C were negative. DIAGNOSTIC DATA: The patient had x-ray of his knee done earlier today on the right, which showed jaziel nt space narrowing patellofemoral joint. ASSESSMENT: For this patient is that of duodenal ulcer with questionable gastrointestinal bleed, hyp ercoagulable state on Eliquis, restarted, ethyl alcohol abuse/withdrawal, depression, suicidal ideati on, thrombocytopenia, leukopenia, improved, hypothyroidism. PLAN: For this patient is to transfer to [facility] with monitoring of labs and clinically, with [facility] as an outpatient with Dr. Casiano as indicated. Ye Pal MD cc: [id number] TT: 09/30/2016 17:59:39 Confirmation # [id number] Dictation # [id number] dn
--- NOTE | 2016-09-30 18:04 | PN ---
DATE: 09/30/2016 Shortly, the patient is a 61-year-old male. History of alcohol use disorder. The patient also has mood disorder and major depressive disorder. The patient initially was admitted on the [facility] floor for alcohol withdrawal symptoms. The patient reported being depressed, hopeless, and helpl ess, had suicidal ideations, but no clear plan. The patient is waiting for medical clearance because patient has low WBC cells and low platelet level. The patient was in agreement to be transferred to the psychiatric inpatient unit for further evaluation and stabilization. LABORATORY DATA: Reviewed. MEDICATIONS: Reviewed. VITAL SIGNS: Reviewed; seem to be stable. MENTAL STATUS EXAMINATION: The patient reported to be hopeless and helpless. Intermittent eye conta ct. Speech was underproductive, low volume. Thought process coherent and goal directed. Thought co ntent: The patient denied visual, auditory, or tactile hallucinations. Denied paranoid ideation. T he patient reported to feel hopeless and helpless, suicidal ideation, no plan or intent. Insight and judgment are improving. Impulses are well controlled. IMPRESSION: Rule out major depressive disorder, rule out adjustment disorder with depressed and anxi ous mood. The patient's last year. The patient was not able to enjoy his life and willing to be transferred to the psychiatric inpatient unit. The patient is having multiple medical problems, status post fall today. The patient has history of hypertension, hyperlipidemia, chronic obstructive pulmonary disease, hypothyroidism, partial colectomy, bilateral pulmonary embolism, left lower extremity deep venous thrombosis. Please see medical team notes for more detailed information. PLAN: The patient will be transferred to the psychiatric inpatient unit. Wellbutrin will be started . Medications will be continued, multivitamins, thiamine, and folic acid. Ativan will be decreased to 1 mg 3 times a day. Milieu structure and supportive therapy. Case was discussed with the medical staff and nursing staff. Thank you very much for allowing us to participate in care of your patient. Saima Vidal MD cc: [phone] TT: 09/30/2016 18:03:22 Confirmation # [id number] Dictation # [id number] dn
== END 2016-09-30 18:58 | DRG 881 ==
LOC: ED 14:31 → ERH 16:27 → 3RSO 22:00
PROVIDERS: ADMIT Hospitalist; ATTEND Internal Medicine
PROC: 3E0234Z Introduction of Serum, Toxoid and Vaccine into Muscle, Percutaneous Approach (ICD-10-PCS; 2016-09-25)
PROC: 0DB68ZX Excision of Stomach, Via Natural or Artificial Opening Endoscopic, Diagnostic (ICD-10-PCS; principal; 2016-09-27 10:30)
DX: F32.9 Major depressive disorder, single episode, unspecified (principal); D61.818 Other pancytopenia; D68.59 Other primary thrombophilia; D70.9 Neutropenia, unspecified; K26.9 Duodenal ulcer, unspecified as acute or chronic, without hemorrhage or perforation; K92.2 Gastrointestinal hemorrhage, unspecified; I48.0 Paroxysmal atrial fibrillation; R45.851 Suicidal ideations; F10.239 Alcohol dependence with withdrawal, unspecified; Y90.7 Blood alcohol level of 200-239 mg/100 ml; K27.9 Peptic ulcer, site unspecified, unspecified as acute or chronic, without hemorrhage or perforation; K29.70 Gastritis, unspecified, without bleeding; E03.9 Hypothyroidism, unspecified; E78.00 Pure hypercholesterolemia, unspecified; E78.5 Hyperlipidemia, unspecified; E87.6 Hypokalemia; F41.9 Anxiety disorder, unspecified; I10 Essential (primary) hypertension; I35.0 Nonrheumatic aortic (valve) stenosis; Z86.711 Personal history of pulmonary embolism; Z86.718 Personal history of other venous thrombosis and embolism; J44.9 Chronic obstructive pulmonary disease, unspecified; K76.0 Fatty (change of) liver, not elsewhere classified; Z79.899 Other long term (current) drug therapy; Z87.01 Personal history of pneumonia (recurrent); F17.200 Nicotine dependence, unspecified, uncomplicated; Z90.49 Acquired absence of other specified parts of digestive tract; Z91.5 Personal history of self-harm; R26.81 Unsteadiness on feet; R31.9 Hematuria, unspecified; R40.2412 Glasgow coma scale score 13-15, at arrival to emergency department; R74.0 Nonspecific elevation of levels of transaminase and lactic acid dehydrogenase [LDH]; R73.03 Prediabetes; M19.90 Unspecified osteoarthritis, unspecified site; Z80.0 Family history of malignant neoplasm of digestive organs; Z87.898 Personal history of other specified conditions; L81.8 Other specified disorders of pigmentation; S80.11XA Contusion of right lower leg, initial encounter; Z91.81 History of falling; Z90.2 Acquired absence of lung [part of]; F19.94 Other psychoactive substance use, unspecified with psychoactive substance-induced mood disorder; F43.23 Adjustment disorder with mixed anxiety and depressed mood; K29.50 Unspecified chronic gastritis without bleeding; K29.80 Duodenitis without bleeding; M25.561 Pain in right knee; Z23 Encounter for immunization

== ENCOUNTER 2016-09-30 18:40 | Inpatient (IN) | payer BC, OTHER ==
[2016-09-30] MEDS ORDERED: Magnesium Hydroxide Susp 30 ml UD PO PRN (19:56)
[2016-09-30] MEDS ORDERED: Alum-Mag Hydrox-Simethicone Susp (30 mL) PO PRN (19:56)
[2016-10-01] MEDS: Sucralfate 1 gm/10 ml Oral Susp UD PO SCH ×2 (08:06→17:23)
[2016-10-01] MEDS: Pantoprazole 40 mg EC Tab PO SCH (08:07)
[2016-10-01] MEDS: Multivitamin With Minerals Tab PO SCH (08:08)
[2016-10-01 11:40] LABS: ALB/GLOB RATIO 1.1 (1.1-1.8); ALKALINE PHOSPHATASE 65 U/L (38-133); ALT/SGPT 63 U/L (7-56); AST/SGOT 67 U/L (15-59); BILIRUBIN,TOTAL 1.1 mg/dL (0.2-1.3); BLOOD UREA NITROGEN 9 mg/dL (7-21); CALCIUM 9.2 mg/dL (8.4-10.5); CARBON DIOXIDE 31 mmol/L (21-33); CHLORIDE 97 mmol/L (98-107); CHOLESTEROL 152 mg/dL (130-200); GFR AFRICAN-AMERICAN > 60; GLUCOSE,RANDOM 90 mg/dL (70-110); POTASSIUM 4.4 mmol/L (3.6-5.0); SODIUM 135 mmol/L (132-148)
[2016-10-01 11:55] LABS: FREE T4 0.98 ng/dL (0.78-2.19)
[2016-10-01] MEDS: Levothyroxine 200 MCG TAB PO SCH (11:56)
[2016-10-01 12:09] LABS: THYROID STIMULATING HORMONE 11.2 mIU/mL (0.46-4.68)
[2016-10-01 12:57] LABS: ADD MANUAL DIFF? NO
[2016-10-01 13:04] LABS: BASO # 0.02 [, K/mm3] (0.0-2.0); BASO % 0.4 % (0.0-3.0); EOS % 0.7 % (1.5-5.0); GRAN # 2.79 (1.4-6.5); GRAN % 62.6 % (50.0-68.0); HEMATOCRIT 36.7 % (42.0-52.0); LYMPH # 0.6 (1.2-3.4); LYMPH % 13.2 % (22.0-35.0); MEAN CELL VOLUME 96.3 fL (80.0-105.0); MEAN CORPUSCULAR HEMOGLOBIN 32.8 pg (25.0-35.0); MEAN CORPUSCULAR HGB CONC 34.1 g/dl (31.0-37.0); MONO % 23.1 % (1.0-6.0); PLATELET COUNT 76 [, 10^3/uL] (120.0-450.0); RED CELL DISTRIBUTION WIDTH 15.8 % (11.5-14.5); WHITE BLOOD COUNT 4.5 [, 10^3/ul] (4.5-11.0)
--- NOTE | 2016-10-01 13:55 | PCM.PSYCH ---
Initial Psychiatric Evaluation - Initial Psychiatric Evaluation Type of Admission: Voluntary Legal Status: Capacity (patient has capacity to sign consent for treatment) Chief Complaint (in patient's own words): "I was feeling very depressed, nothing was making me feel happy, I would not mind to be killed" Patient's Reaction to Hospitalization: pt was transferred from the med floor where he was admitted for hematemesis, for evaluation and stabilization of depressive symptoms, passive wish to be , inability to function. History of Present Illness and Precipitating Events: shortly pt is 61yo Male with not formal psychiatric h/o, h/o alcohol use disorder, pt was sober since 1992, relapsed on 11/07/2015 after pt's , pt was keep drinking for the past year, initially was admitted to the med floor for evaluation of upper GI bleeding, pt was consulted by this contract writer, was found to be depressed, hopeless, helpless, passive wish to be . Pt was medically stable, was transferred to the psychiatric inpatient unit for further evaluation and stabilization and meds titration. pt was seen today at his room, pt presented to be depressed, good ADLs, fair hygiene. Pt reported being depressed for the past year, despite the fact that he is in relationship with GF, pt was feeling "lonely, nothing was making me feel happy" . Pt said that he was feeling hopeless and helpless, passive wish to be , pt also reported "I would not mind to be killed by a car, but I will be not looking for it myself". pt said he was trying to deal with stress by drinking alcohol, pt was drinking 1pint of vodka and 2cans of 24oz of beer daily, pt currently is comfortable, no signs of withdrawals. pt denied feeling anxious, denied abused, denied PTSD pt denied v/a/t hallucinations, denied paranoid ideation, pt does not appear to be psychotic. no manic symptoms were elicited. pt denied smoking or using any other drugs. Past psych h/o: denied admissions, denied suicidal attempts, two detoxes in the past most recent was in 1992, was sober up until last year. Medical h/o: pt has multiple medical problems, including upper GI bleed, low platelets, low WBC, pt also has h/o knee operations, h/o falls, see medical team note for more detailed information. Pt was seen by ortho in past, will call consult. Pt was started wellbutrin yesterday, risk, benefits and alternatives discussed, pt c/o insomnia today, will be initiating Trazodone hs prn. pt tolerated meds well, no side effects observed or reported. AIMS 0, no EPS. Family h/o: denied 10/01/16 12:45 10/01/16 11:20 Lab Results 10/01/16 12:45: WBC 4.5 D, RBC 3.81, Hgb 12.5 L, Hct 36.7 L, MCV 96.3, MCH 32.8 , MCHC 34.1, RDW 15.8 H, Plt Count 76 L, MPV 10.0, Gran % 62.6, Lymph % (Auto) 13.2 L, Spencer % (Auto) 23.1 H, Eos % (Auto) 0.7 L, Baso % (Auto) 0.4, Gran # 2.79 , Lymph # 0.6 L, Spencer # 1.0 H, Eos # 0.0, Baso # 0.02 10/01/16 11:20: Sodium 135, Potassium 4.4, Chloride 97 L, Carbon Dioxide 31, Anion Gap 11, BUN 9, Creatinine 0.9, Est GFR ( Amer) > 60, Est GFR (Non- Af Amer) > 60, Random Glucose 90, Uric Acid 7.0, Calcium 9.2, Total Bilirubin 1.1, AST 67 H, ALT 63 H, Alkaline Phosphatase 65, Total Protein 7.0, Albumin 3.7 , Globulin 3.3, Albumin/Globulin Ratio 1.1, Triglycerides 97, Cholesterol 152, LDL Cholesterol Direct 48, HDL Cholesterol 75 H 10/01/16 11:20: Free T4 0.98, TSH 3rd Generation 11.20 H Vital Signs Temp Pulse Resp BP 10/01/16 07:03 98.9 F 69 20 136/95 H Current Medications: Active Medications Generic Name Dose Route Start Last Admin Trade Name Freq PRN Reason Stop Dose Admin Acetaminophen 650 mg 09/30/16 19:56 Tylenol 325mg Tab PO Q6H PRN Pain, Mild (1-3) Al Hydrox/Mg Hydrox/Simethicone 30 ml 09/30/16 19:56 Maalox Plus 30 Ml PO DAILY PRN Upset Stomach Apixaban 2.5 mg 10/01/16 08:00 10/01/16 08:09 Eliquis PO 2.5 mg BID [facility] Administration Protocol Atorvastatin Calcium 20 mg 10/01/16 22:00 Lipitor PO HS [facility] Bupropion HCl 75 mg 10/01/16 08:00 10/01/16 08:09 Wellbutrin PO 75 mg BID [facility] Administration Docusate Sodium 100 mg 10/01/16 09:45 Colace PO BID [facility] Folic Acid 1 mg 10/01/16 08:00 10/01/16 08:09 Folic Acid PO 1 mg DAILY [facility] Administration Levothyroxine Sodium 200 mcg 10/01/16 07:30 10/01/16 11:56 Synthroid PO 200 mcg ACB [facility] Administration Lorazepam 1 mg 10/01/16 08:00 10/01/16 08:09 Ativan PO 1 mg TID [facility] Administration Protocol Magnesium Hydroxide 30 ml 09/30/16 19:56 10/01/16 08:00 Milk Of Magnesia PO 30 ml DAILY PRN Administration Constipation Multivitamins/Minerals 1 tab 10/01/16 08:00 10/01/16 08:08 Therapeutic-M Tab PO 1 tab DAILY [facility] Administration Pantoprazole Sodium 40 mg 10/01/16 07:30 10/01/16 08:07 Protonix Ec Tab PO 40 mg ACB [facility] Administration Sucralfate 1 gm 10/01/16 08:00 10/01/16 08:06 Carafate Oral Susp PO 1 gm BID [facility] Administration Thiamine HCl 100 mg 10/01/16 08:00 10/01/16 08:09 Vitamin B1 Tab PO 100 mg DAILY [facility] Administration Tramadol HCl 25 mg 09/30/16 23:01 10/01/16 08:07 Ultram PO 25 mg BID PRN Administration Pain, moderate (4-7) Trazodone HCl 50 mg 10/01/16 13:27 Desyrel PO HS PRN Insomnia Past Psychiatric History - Past Psychiatric History Previous Treatment History: None Prior Professional Help: history of alcohol detox Prior Psychiatric Treatment: see HPI At [facility]: see HPI Duration: see HPI Nature of Treatment: see HPI Explanation of prior treatment: see HPI History of Abuse: see HPI History of ETOH/Drug Use: see HPI History of Family Illness: see HPI Pertinent Medical Hx (Current Medical&Sleep Prob, Allergies): Allergies Allergy/AdvReac Type Severity Reaction Status Date / Time No Known Allergies Allergy Verified 12/18/15 09:11 Atorvastatin [Lipitor] 20 mg PO DAILY 12/18/15 Metoprolol Tartrate [Lopressor] 25 mg PO BID #0 tab 12/26/15 Folic Acid 1 mg PO DAILY 03/29/16 Acetaminophen [Tylenol 325mg tab] 650 mg PO Q6H PRN tab 09/29/16 Apixaban [Eliquis] 2.5 mg PO BID tab 09/29/16 Levothyroxine [Synthroid] 200 mcg PO ACB tab 09/29/16 Pantoprazole [Protonix EC Tab] 40 mg PO 0630 ect 09/29/16 Sucralfate [Carafate Oral Susp] 1 gm PO BID 09/29/16 traMADol [Ultram] 25 mg PO BID PRN tab 09/29/16 Review of Systems - Review of Systems Systems not reviewed;Unavailable: Acuity of Condition - EENT Eyes: As Per HPI Ears: As Per HPI Nose/Mouth/Throat: As Per HPI - Cardiovascular Cardiovascular: As Per HPI - Respiratory Respiratory: As Per HPI - Gastrointestinal Gastrointestinal: As Per HPI - Genitourinary Genitourinary: As Per HPI - Reproductive: Male Reproductive:Male: As Per HPI - Musculoskeletal Musculoskeletal: As Par HPI - Integumentary Integumentary: As Per HPI - Neurological Neurological: As Per HPI - Psychiatric Psychiatric: As Per HPI - Endocrine Endocrine: As Per HPI - Hematologic/Lymphatic Hematologic: As Per HPI Mental Status Examination - Personal Presentation Personal Presentation: Looks stated age - Affect Affect: Flat (and tearful) - Motor Activity Motor Activity: Calm - Reliability in Providing Information Reliability in Providing Information: Fair - Speech Speech: Organized - Mood Mood: Depressed - Formal Thought Process Formal Thought Process: No Impairment - Obsessions/Compulsions Obsessions: None Compulsions: None - Cognitive Functions Orientation: Person, Place, Situation, Time Sensorium: Alert Attention/Concentration: Easily distracted Abstract Thinking: As evidence by abstract perception of proverbs Estimate of Intelligence: Average Judgement: Intact, as evidence by: Insight regarding need for hospitalization - Risk Risk: Suicidal, Withdrawal, Diminished functioning - Strength & Assets Inventory Strength & Assets Inventory: Intelligence, Skills, Cooperative - Limitations Limitations: Other (pt lives alone, white mail, multiple medical problems, recent loss of his ) DSM 5 DX - DSM 5 DSM 5 Diagnosis: major depressive disorder severe with no psychosis Rule out adjustment disorder depressed mood alcohol use disorder alcohol withdrawals, better r/o alcohol induced mood disorder - Recommended/Plan of Treatment Treatment Recommendations and Plan of Treatment: Milieu, structure, supportive therapy medical meds up to medical team will continue ativan tapering 1mg tid for alcohol withdrawal will initiate wellbutrin 75mg po bid for MDD will give Trazodone prn for insomnia 50mg hs will call medical team consult will call Ortho consult for chronic knee pain PT evaluation SW evaluation will monitor closely Projected ELOS: 7days Prognosis: guarded Discharge Plan and Discharge Criteria: Pt will be not depressed or manic, will be more hopeful, will be not psychotic or anxious, will be not having thoughts of harming self or others, will be tolerating medications well, will not have major side effects, will be able to function, will not pose threat to self or others. - Smoking Cessation Smoking Cessation Initiated: No Reason for not providing: pt denied smoking
--- NOTE | 2016-10-01 17:03 | CP.PCM.CON ---
<Jayden Castro - Last Filed: 10/01/16 17:11> History of Present Illness - History of Present Illness History of Present Illness: Patient is a 61 year old male with past medical history of HLD, HTN, hypothyroidism, COPD, AAA, prediabetes, B/L PE and L LE DVT in November on Eliquis, alcohol abuse, depression and diverticulosis presented to hospital with depression and suicidal ideations. Patient states that he has felt depressed since November of 2015 when his . He was recently hospitalized and treated for anemia and alcohol withdrawals. He recently had a fall due to right knee weakness. He states this happens to him sometimes and the pain and swelling can last for days. He currently denies any suicidal ideations. He also denies any nausea, vomiting, chest pain, SOB, fever, or chills. PMHx: stated above Sx: partial colectomy, tonsillectomy, partial lung resection NKDA Meds: see JUL PMD: Dr. Ivey Social: Smoked for "many years" and currently smokes. Daily ETOH use, has used IV heroin in past long time ago Review of Systems - Constitutional Constitutional: absent: Chills, Fever, Weakness - EENT Eyes: absent: Change in Vision Ears: absent: Decreased Hearing Nose/Mouth/Throat: absent: Bleeding Gums, Dysphagia, Neck Mass - Cardiovascular Cardiovascular: absent: Chest Pain, Dyspnea, Edema, Leg Edema - Respiratory Respiratory: absent: Cough, Dyspnea - Gastrointestinal Gastrointestinal: absent: Abdominal Pain, Cramping, Diarrhea, Melena, Vomiting - Genitourinary Genitourinary: absent: Dysuria - Musculoskeletal Musculoskeletal: Stiffness (right knee). absent: Back Pain, Neck Pain - Integumentary Integumentary: absent: Rash, Skin Pain, Wounds - Neurological Neurological: Weakness (right knee). absent: Tingling - Psychiatric Psychiatric: Depression. absent: Suicidal Ideation, Visual Hallucinations - Endocrine Endocrine: absent: Fatigue, Palpitations Past Patient History - Infectious Disease Hx of Infectious Diseases: None - Past Social History Smoking Status: Former Smoker Alcohol: > 2 Drinks/Day Drugs: Denies Home Situation {Lives}: Alone - CARDIAC Hx Hypertension: Yes - PULMONARY Hx Chronic Obstructive Pulmonary Disease (COPD): Yes - NEUROLOGICAL HX Cerebrovascular Accident: No Hx Seizures: No - HEENT Hx HEENT Problems: Yes (eyeglasees) - ENDOCRINE/METABOLIC Hx Hypothyroidism: Yes - HEMATOLOGICAL/ONCOLOGICAL Hx Cancer: No Hx Human Immunodeficiency Virus (HIV): No Other/Comment: e coli staph infections pt does not know where tx by pmd 2016 - INTEGUMENTARY Other/Comment: multiple tatoos, r great toe 0.5 round dry brown wound,rle multiple bruises dry scab to r knee surrounded by red skin, slight swelling both knees - MUSCULOSKELETAL/RHEUMATOLOGICAL Hx Falls: Yes - GASTROINTESTINAL Hx Gastrointestinal Disorders: Yes (tarry stools x 5 days) - GENITOURINARY/GYNECOLOGICAL Hx Prostate Problems: Yes Hx Sexually Transmitted Disorders: No - PSYCHIATRIC Hx Substance Use: Yes - SURGICAL HISTORY Hx Surgeries: Yes - ANESTHESIA Hx Anesthesia Reactions: No Hx Malignant Hyperthermia: No Meds Allergies/Adverse Reactions: Allergies Allergy/AdvReac Type Severity Reaction Status Date / Time No Known Allergies Allergy Verified 12/18/15 09:11 - Medications Medications: Current Medications Acetaminophen (Tylenol 325mg Tab) 650 mg PO Q6H PRN PRN Reason: Pain, Mild (1-3) Al Hydrox/Mg Hydrox/Simethicone (Maalox Plus 30 Ml) 30 ml PO DAILY PRN PRN Reason: Upset Stomach Apixaban (Eliquis) 2.5 mg PO BID [facility] PRN Reason: Protocol Last Admin: 10/01/16 08:09 Dose: 2.5 mg Atorvastatin Calcium (Lipitor) 20 mg PO HS [facility] Bupropion HCl (Wellbutrin) 75 mg PO BID [facility] Last Admin: 10/01/16 08:09 Dose: 75 mg Docusate Sodium (Colace) 100 mg PO BID [facility] Last Admin: 10/01/16 14:12 Dose: 100 mg Folic Acid (Folic Acid) 1 mg PO DAILY [facility] Last Admin: 10/01/16 08:09 Dose: 1 mg Levothyroxine Sodium (Synthroid) 200 mcg PO ACB [facility] Last Admin: 10/01/16 11:56 Dose: 200 mcg Lorazepam (Ativan) 1 mg PO TID [facility] PRN Reason: Protocol Last Admin: 10/01/16 14:11 Dose: 1 mg Magnesium Hydroxide (Milk Of Magnesia) 30 ml PO DAILY PRN PRN Reason: Constipation Last Admin: 10/01/16 08:00 Dose: 30 ml Multivitamins/Minerals (Therapeutic-M Tab) 1 tab PO DAILY [facility] Last Admin: 10/01/16 08:08 Dose: 1 tab Pantoprazole Sodium (Protonix Ec Tab) 40 mg PO ACB [facility] Last Admin: 10/01/16 08:07 Dose: 40 mg Sucralfate (Carafate Oral Susp) 1 gm PO BID [facility] Last Admin: 10/01/16 08:06 Dose: 1 gm Thiamine HCl (Vitamin B1 Tab) 100 mg PO DAILY [facility] Last Admin: 10/01/16 08:09 Dose: 100 mg Tramadol HCl (Ultram) 25 mg PO BID PRN PRN Reason: Pain, moderate (4-7) Last Admin: 10/01/16 08:07 Dose: 25 mg Trazodone HCl (Desyrel) 50 mg PO HS PRN PRN Reason: Insomnia Physical Exam - Head Exam Head Exam: ATRAUMATIC, NORMOCEPHALIC - Eye Exam Eye Exam: EOMI, Normal appearance, PERRL Pupil Exam: NORMAL ACCOMODATION, PERRL - ENT Exam ENT Exam: Mucous Membranes Moist, Normal Oropharynx - Neck Exam Neck exam: Positive for: Normal Inspection. Negative for: Tenderness - Respiratory Exam Respiratory Exam: Clear to Auscultation Bilateral, NORMAL BREATHING PATTERN. absent: Rales, Rhonchi, Wheezes - Cardiovascular Exam Cardiovascular Exam: REGULAR RHYTHM, +S1, +S2. absent: Gallop, Rubs, Systolic Murmur - GI/Abdominal Exam GI & Abdominal Exam: Normal Bowel Sounds, Soft. absent: Tenderness - Extremities Exam Extremities exam: Negative for: normal inspection Additional comments: decreased range of motion in right knee- difficulty on extension Tenderness to palpation on lateral aspect of right knee fluctuant and warm- patient states like this before fall old healing abrasion on right knee - Back Exam Back exam: NORMAL INSPECTION. absent: rash noted, tenderness - Neurological Exam Neurological exam: Alert, CN II-XII Intact, Oriented x3 - Psychiatric Exam Psychiatric exam: Normal Affect, Normal Mood - Skin Skin Exam: Dry, Intact, Normal Color Results - Vital Signs Recent Vital Signs: Last Vital Signs Temp 98.9 F 10/01/16 07:03 Pulse 77 10/01/16 15:56 Resp 20 10/01/16 07:03 BP 144/85 10/01/16 15:56 Pulse Ox - Labs Result Diagrams: 10/01/16 12:45 05/02/17 11:20 Labs: Laboratory Results - last 24 hr 10/01/16 10/01/16 10/01/16 11:20 11:20 12:45 WBC 4.5 D RBC 3.81 Hgb 12.5 L Hct 36.7 L MCV 96.3 MCH 32.8 MCHC 34.1 RDW 15.8 H Plt Count 76 L MPV 10.0 Gran % 62.6 Lymph % (Auto) 13.2 L [place] % (Auto) 23.1 H Eos % (Auto) 0.7 L Baso % (Auto) 0.4 Gran # 2.79 Lymph # 0.6 L [place] # 1.0 H Eos # 0.0 Baso # 0.02 Sodium 135 Potassium 4.4 Chloride 97 L Carbon Dioxide 31 Anion Gap 11 BUN 9 Creatinine 0.9 Est GFR ( Amer) > 60 Est GFR (Non-Af Amer) > 60 Random Glucose 90 Uric Acid 7.0 Calcium 9.2 Total Bilirubin 1.1 AST 67 H ALT 63 H Alkaline Phosphatase 65 Total Protein 7.0 Albumin 3.7 Globulin 3.3 Albumin/Globulin Ratio 1.1 Triglycerides 97 Cholesterol 152 LDL Cholesterol Direct 48 HDL Cholesterol 75 H Free T4 0.98 TSH 3rd Generation 11.20 H Assessment & Plan - Assessment and Plan (Free Text) Assessment: 61 y/o M on psych floor with depression w/ SI, complains of right knee pain s/p fall, hypothyroidism, and anemia. Plan: 1. Depression w/ SI * Management as per psychiatry * On wellbutrin and trazodone * encouraged to attend sessions and groups 2. Anemia * Likely secondary to recent GI bleed and alcohol abuse * Continue Protonix and Carafatedaily * Zofran PRN nausea 3. ETOH withdrawal * Continue Ativan taper * Continue Thiamine, Folic acid, and multivitamin * encouraged cessation of alcohol use 4. Right Knee pain * s/p fall * knee x-ray showed joint space narrowing lateral aspect of patello-femoral joint * orthopedic surgeon consulted, help appreciated * obtain uric acid level * Pain control with tramadol * physical therapy eval * in wheelchair 5. Hypothyroidism * Continue Synthroid 200 mcg qd 6. Hx of PE and DVT * Continue Eliquis 2.5 mg PO BID * Monitor for bleed, SOB, or calf pain 7. HLD * continue Lipitor 8. PPX * Tylenol * Colace * Maalox * milk of mag Assessment and plan discussed with attending physician. <Nickolas HESTER,Cindy - Last Filed: 10/04/16 13:18> Meds - Medications Medications: Current Medications Acetaminophen (Tylenol 325mg Tab) 650 mg PO Q6H PRN PRN Reason: Pain, Mild (1-3) Al Hydrox/Mg Hydrox/Simethicone (Maalox Plus 30 Ml) 30 ml PO DAILY PRN PRN Reason: Upset Stomach Apixaban (Eliquis) 2.5 mg PO BID [facility] PRN Reason: Protocol Last Admin: 10/04/16 08:42 Dose: 2.5 mg Atorvastatin Calcium (Lipitor) 20 mg PO HS [facility] Last Admin: 10/03/16 22:00 Dose: 20 mg Bupropion HCl (Wellbutrin Xl) 150 mg PO DAILY [facility] Last Admin: 10/04/16 08:41 Dose: 150 mg Colchicine (Colocrys) 0.6 mg PO DAILY [facility] Stop: 10/10/16 08:00 Last Admin: 10/04/16 08:41 Dose: 0.6 mg Docusate Sodium (Colace) 100 mg PO BID [facility] Last Admin: 10/04/16 08:42 Dose: 100 mg Fluticasone Propionate (Flonase) 1 actuation NS DAILY [facility] Last Admin: 10/04/16 08:48 Dose: 1 actuation Folic Acid (Folic Acid) 1 mg PO DAILY [facility] Last Admin: 10/04/16 08:42 Dose: 1 mg Levothyroxine Sodium (Synthroid) 200 mcg PO ACB [facility] Last Admin: 10/04/16 08:42 Dose: 200 mcg Lorazepam (Ativan) 0.5 mg PO BID [facility] PRN Reason: Protocol Last Admin: 10/04/16 08:41 Dose: 0.5 mg Magnesium Hydroxide (Milk Of Magnesia) 30 ml PO DAILY PRN PRN Reason: Constipation Last Admin: 10/01/16 08:00 Dose: 30 ml Multivitamins/Minerals (Therapeutic-M Tab) 1 tab PO DAILY [facility] Last Admin: 10/04/16 08:41 Dose: 1 tab Pantoprazole Sodium (Protonix Ec Tab) 40 mg PO ACB [facility] Last Admin: 10/04/16 08:42 Dose: 40 mg Sucralfate (Carafate Oral Susp) 1 gm PO BID [facility] Last Admin: 10/04/16 08:41 Dose: 1 gm Thiamine HCl (Vitamin B1 Tab) 100 mg PO DAILY [facility] Last Admin: 10/04/16 08:41 Dose: 100 mg Tramadol HCl (Ultram) 25 mg PO Q6H PRN PRN Reason: Pain, moderate (4-7) Trazodone HCl (Desyrel) 50 mg PO HS PRN PRN Reason: Insomnia Last Admin: 10/03/16 22:02 Dose: 50 mg Results - Vital Signs Recent Vital Signs: Last Vital Signs Temp 97.8 F 10/04/16 06:28 Pulse 70 10/04/16 06:28 Resp 18 10/04/16 06:28 BP 92/53 L 10/04/16 06:28 Pulse Ox - Labs Result Diagrams: 10/02/16 07:34 10/02/16 07:34 Attending/Attestation - Attestation I have personally seen and examined this patient.: Yes I have fully participated in the care of the patient.: Yes I have reviewed all pertinent clinical information: Yes Notes (Text): Patient was seen and examined with special forces medical sergeant .Agreed with resident assessment and plan. 61 year old male with PMH of HLD, HTN, hypothyroidism, COPD, Poxysmal AF, B/L PE and L LE DVT in November on Eliquis, alcohol abuse, depression and diverticulosis presented to hospital with depression and suicidal ideation. He was giving history of GI bleeding, hemoglobin remain stable, his elequis was held.He underwent EGD that was negative for acute bleeding, showed duodenal ulcer.Patient also had thrombocytopenia due to alocohol abuse.He was monitored for alcohol withdrawal.Elequis was restarted .He recently had a fall due to right knee weakness.There was no fracture.Currently he is [facility] for treatment of depression.He has developed effusion in right knee, does not look to be septic.We will get Orthopaedic consult Management plan was discussed in detail with patient Education was provided.
[2016-10-02 07:36] LABS: ADD MANUAL DIFF? NO
[2016-10-02 07:39] LABS: BASO # 0.03 [, K/mm3] (0.0-2.0); BASO % 0.6 % (0.0-3.0); EOS % 0.6 % (1.5-5.0); GRAN # 2.68 (1.4-6.5); GRAN % 56.1 % (50.0-68.0); HEMATOCRIT 35.1 % (42.0-52.0); LYMPH # 0.9 (1.2-3.4); LYMPH % 18.6 % (22.0-35.0); MEAN CELL VOLUME 96.7 fL (80.0-105.0); MEAN CORPUSCULAR HEMOGLOBIN 33.3 pg (25.0-35.0); MEAN CORPUSCULAR HGB CONC 34.5 g/dl (31.0-37.0); MEAN PLATELET VOLUME 10.5 fl (7.0-11.0); MONO # 1.2 (0.1-0.6); MONO % 24.1 % (1.0-6.0); PLATELET COUNT 90 [, 10^3/uL] (120.0-450.0); RED CELL DISTRIBUTION WIDTH 15.6 % (11.5-14.5); WHITE BLOOD COUNT 4.8 [, 10^3/ul] (4.5-11.0)
[2016-10-02] MEDS: Pantoprazole 40 mg EC Tab PO SCH (07:46)
[2016-10-02] MEDS: Levothyroxine 200 MCG TAB PO SCH (07:46)
[2016-10-02 07:49] LABS: BLOOD UREA NITROGEN 10 mg/dL (7-21); CARBON DIOXIDE 28 mmol/L (21-33); CHLORIDE 98 mmol/L (95-110); GFR AFRICAN-AMERICAN > 60; GLUCOSE,RANDOM 86 mg/dL (70-110); POTASSIUM 4.4 mmol/L (3.6-5.0)
[2016-10-02 07:52] LABS: SODIUM 131 mmol/L (132-148)
[2016-10-02] MEDS: Sucralfate 1 gm/10 ml Oral Susp UD PO SCH ×2 (09:00→17:46)
[2016-10-02] MEDS: Multivitamin With Minerals Tab PO SCH (09:00)
[2016-10-02] MEDS ORDERED: Bupivacaine 0.5% Inj(30mL) IJ ONE (11:40)
[2016-10-02] MEDS ORDERED: MethylPREDNISolone Depo 40 mg/ml Inj IM ONE (11:40)
--- NOTE | 2016-10-02 12:47 | CON ---
DATE: 10/02/2016 A 61-year-old male with right knee pain and swelling. I had seen him years ago for left knee where h yazan had osteoarthritis. We aspirated 60 mL of turbid fluid, appears to be an inflammatory arthritis li ke gout. We are going to send that specimen for cell count, cultures and crystals. The x-rays previ ously showed osteoarthritis of the right knee with internal derangement, but he is not ready for a to naty knee at this time. He might undergo arthroscopy if the synovitis continues, but by just taking t he fluid out and irrigating with normal saline to dilute it, we then injected with Depo-Medrol and Ma rcaine to help with the pain and we will start on therapy and send the fluid for cell count, culture and crystals and we will wait for that to come back and see what it is. Vamsi Mars DO cc: [id number] TT: 10/02/2016 12:46:28 Confirmation # [id number] Dictation # [id number] tn
[2016-10-02 14:40] LABS: FLUID TYPE SYNOVIAL FLUID
[2016-10-02 14:41] LABS: SYNOVIAL FLUID TOTAL COUNT 100 (0-0)
--- NOTE | 2016-10-02 14:47 | PCM.PYCHPN ---
Psychiatric Progress Note - Psychiatric Progress Note Patient seen today, length of contact: 30 minutes Patient Chief Complaint: "I did not sleep last night, I am in pain, and depressed to" Problems Identified/Issues Discussed: Suicide/ homicide prevention, past psychiatric h/o, current psychiatric symptoms , medical problems, risk/benefits and alternatives of medications, medications compliance, coping strategies, substance abuse h/o, relapse prevention, importance of follow up with psychiatrist and therapist, discharge plan. Medical Problems: possible gout, history of alcohol use disorder, no withdrawal symptoms, patient was seen by orthopedist Dr. Russell, chronic knee pain Diagnostic Results: 10/02/16 07:34 10/02/16 07:34 Lab Results 10/02/16 12:41: Fluid Type Synovial fluid, Synovial WBC 88709.0 H, Synovial RBC 4000.0 H, Synovial Neutrophils 92.0 H, Synovial Lymphocytes 8.0 H, Synov Monos/ Macrophage 0 10/02/16 12:41: Fluid Source Cancelled, Fluid Appearance Cancelled, Fluid WBC Cancelled, Fluid RBC Cancelled, Fluid Tot Cell Count Cancelled, Fluid Neutrophils Cancelled, Fluid Lymphocytes Cancelled, Fld Monocyte/Macrophag Cancelled, Fluid Comment Cancelled 10/02/16 07:34: Sodium 131 L, Potassium 4.4, Chloride 98, Carbon Dioxide 28, Anion Gap 9 L, BUN 10, Creatinine 0.9, Est GFR ( Amer) > 60, Est GFR (Non -Af Amer) > 60, Random Glucose 86, Calcium 9.0 10/02/16 07:34: WBC 4.8, RBC 3.63, Hgb 12.1 L, Hct 35.1 L, MCV 96.7, MCH 33.3, MCHC 34.5, RDW 15.6 H, Plt Count 90 L, MPV 10.5, Gran % 56.1, Lymph % (Auto) 18.6 L, [place] % (Auto) 24.1 H, Eos % (Auto) 0.6 L, Baso % (Auto) 0.6, Gran # 2.68 , Lymph # 0.9 L, [place] # 1.2 H, Eos # 0.0, Baso # 0.03 10/01/16 12:45: WBC 4.5 D, RBC 3.81, Hgb 12.5 L, Hct 36.7 L, MCV 96.3, MCH 32.8 , MCHC 34.1, RDW 15.8 H, Plt Count 76 L, MPV 10.0, Gran % 62.6, Lymph % (Auto) 13.2 L, [place] % (Auto) 23.1 H, Eos % (Auto) 0.7 L, Baso % (Auto) 0.4, Gran # 2.79 , Lymph # 0.6 L, [place] # 1.0 H, Eos # 0.0, Baso # 0.02 10/01/16 11:20: Sodium 135, Potassium 4.4, Chloride 97 L, Carbon Dioxide 31, Anion Gap 11, BUN 9, Creatinine 0.9, Est GFR ( Amer) > 60, Est GFR (Non- Af Amer) > 60, Random Glucose 90, Uric Acid 7.0, Calcium 9.2, Total Bilirubin 1.1, AST 67 H, ALT 63 H, Alkaline Phosphatase 65, Total Protein 7.0, Albumin 3.7 , Globulin 3.3, Albumin/Globulin Ratio 1.1, Triglycerides 97, Cholesterol 152, LDL Cholesterol Direct 48, HDL Cholesterol 75 H 10/01/16 11:20: RPR Nonreactive 10/01/16 11:20: Free T4 0.98, TSH 3rd Generation 11.20 H Vital Signs Temp Pulse Resp BP 10/02/16 07:22 99.2 F 81 20 139/91 H 10/01/16 15:56 77 144/85 10/01/16 07:03 98.9 F 69 20 136/95 H Lab Studies 10/02/16 10/02/16 10/02/16 Range/Units 12:41 12:41 07:34 WBC (4.5-11.0) 10^3/ul RBC (3.5-6.1) 10^6/uL Hgb (14.0-18.0) gm/dL Hct (42.0-52.0) % MCV (80.0-105.0) fL MCH (25.0-35.0) pg MCHC (31.0-37.0) g/dl RDW (11.5-14.5) % Plt Count (120.0-450.0) 10^3/uL MPV (7.0-11.0) fl Gran % (50.0-68.0) % Lymph % (Auto) (22.0-35.0) % [place] % (Auto) (1.0-6.0) % Eos % (Auto) (1.5-5.0) % Baso % (Auto) (0.0-3.0) % Gran # (1.4-6.5) Lymph # (1.2-3.4) [place] # (0.1-0.6) Eos # (0.0-0.7) Baso # (0.0-2.0) K/mm3 Sodium 131 L (132-148) mmol/L Potassium 4.4 (3.6-5.0) mmol/L Chloride 98 (95-110) mmol/L Carbon Dioxide 28 (21-33) mmol/L Anion Gap 9 L (10-20) BUN 10 (7-21) mg/dL Creatinine 0.9 (0.5-1.4) mg/dL Est GFR ( Amer) > 60 Est GFR (Non-Af Amer) > 60 Random Glucose 86 (70-110) mg/dL Calcium 9.0 (8.4-10.5) mg/dL Fluid Type Synovial fluid Fluid Source Cancelled Fluid Appearance Cancelled Fluid WBC Cancelled Fluid RBC Cancelled Fluid Tot Cell Count Cancelled Fluid Neutrophils Cancelled Fluid Lymphocytes Cancelled Fld Monocyte/Macrophag Cancelled Fluid Comment Cancelled Synovial WBC 14420.0 H (0.0-150.0) /uL Synovial RBC 4000.0 H (0.0-0.0) /uL Synovial Neutrophils 92.0 H (0-0) % Synovial Lymphocytes 8.0 H (0-0) % Synov Monos/Macrophage 0 (0-0) % RPR (NONREACTIVE) 10/02/16 10/01/16 Range/Units 07:34 11:20 WBC 4.8 (4.5-11.0) 10^3/ul RBC 3.63 (3.5-6.1) 10^6/uL Hgb 12.1 L (14.0-18.0) gm/dL Hct 35.1 L (42.0-52.0) % MCV 96.7 (80.0-105.0) fL MCH 33.3 (25.0-35.0) pg MCHC 34.5 (31.0-37.0) g/dl RDW 15.6 H (11.5-14.5) % Plt Count 90 L (120.0-450.0) 10^3/uL MPV 10.5 (7.0-11.0) fl Gran % 56.1 (50.0-68.0) % Lymph % (Auto) 18.6 L (22.0-35.0) % [place] % (Auto) 24.1 H (1.0-6.0) % Eos % (Auto) 0.6 L (1.5-5.0) % Baso % (Auto) 0.6 (0.0-3.0) % Gran # 2.68 (1.4-6.5) Lymph # 0.9 L (1.2-3.4) [place] # 1.2 H (0.1-0.6) Eos # 0.0 (0.0-0.7) Baso # 0.03 (0.0-2.0) K/mm3 Sodium (132-148) mmol/L Potassium (3.6-5.0) mmol/L Chloride (95-110) mmol/L Carbon Dioxide (21-33) mmol/L Anion Gap (10-20) BUN (7-21) mg/dL Creatinine (0.5-1.4) mg/dL Est GFR ( Amer) Est GFR (Non-Af Amer) Random Glucose (70-110) mg/dL Calcium (8.4-10.5) mg/dL Fluid Type Fluid Source Fluid Appearance Fluid WBC Fluid RBC Fluid Tot Cell Count Fluid Neutrophils Fluid Lymphocytes Fld Monocyte/Macrophag Fluid Comment Synovial WBC (0.0-150.0) /uL Synovial RBC (0.0-0.0) /uL Synovial Neutrophils (0-0) % Synovial Lymphocytes (0-0) % Synov Monos/Macrophage (0-0) % RPR Nonreactive (NONREACTIVE) DSM 5 Symptoms Update: shortly pt is 61yo Male with not formal psychiatric h/o, h/o alcohol use disorder, pt was sober since 1992, relapsed on 11/07/2015 after pt's , pt was keep drinking for the past year, initially was admitted to the med floor for evaluation of upper GI bleeding, pt was consulted by this sheet writer, was found to be depressed, hopeless, helpless, passive wish to be . Pt was medically stable, was transferred to the psychiatric inpatient unit for further evaluation and stabilization and meds titration. pt was seen today at treatment team meeting, patient has acceptable personal hygiene, complain of the knee pain, was ambulating using a wheelchair. patient denied any withdrawal symptoms, reported feeling comfortable, vital signs are stable. Patient reported that he feels depressed, reported that Wellbutrin started to work, his mood is "slowly improving", patient reported that he didn't sleep that well because of the pain in his knee, patient is waiting for orthopedist evaluation. Patient reported to feel hopeless and helpless, denied feeling anxious. Patient started to go to groups, visible in the unit, but not socializing with other patients. Patient tolerates medication well, no side effects observed or reported, aims 0 , no EPS. Impression rule out major depressive disorder Rule out adjustment disorder with depressed and anxious mood Mood disorder due to general medical condition.Alcohol use disorder Withdrawal symptoms are better Medication Change: Yes (Ativan was decreased) Medical Record Reviewed: Yes Consults ordered or reviewed: medical team consult appreciated Orthopedist consult appreciated This sheet writer discussed case with the medical team as well as orthopedic team Mental Status Examination - Cognitive Function Orientation: Person, Place, Situation, Time Memory: Intact Attention: Poor Concentration: Poor Association: WNL Fund of Knowledge: WNL - Mood Mood: Depressed - Affect Affect: Flat (and tearful) - Formal Thought Process Formal Thought Process: No Impairment - Suicidal Ideation Suicidal Ideation: No - Homicidal Ideation Homicidal Ideation: No Goal/Treatment Plan - Goal/Treatment Plan Need for Continued Stay: Remain at risks for inpatient hospitalization, Severe depression anxiety, Discharge may exacerbated symptoms, Severe functional impairment Progress Toward Problem(s) and Goals/Treatment Plan: Milieu, structure, supportive therapy medical meds up to medical team will continue ativan tapering 1mg bid for alcohol withdrawal will initiate wellbutrin 75mg po bid for MDD will give Trazodone prn for insomnia 50mg hs medical consult appreciated Ortho consult appreciated PT evaluation SW evaluation will monitor closely Estimated Date of D/C: 10/09/16 (we will monitor closely)
--- NOTE | 2016-10-02 16:45 | CP.PCM.PN ---
<Jayden Castro - Last Filed: 10/02/16 16:41> Subjective - Date & Time of Evaluation Date of Evaluation: 10/02/16 Time of Evaluation: 09:00 - Subjective Subjective: Dr. Castro PGY 1 Hospitalist Note Patient seen and evaluated in wheelchair. He states his right knee pain has gotten worse and has more difficulty extending it He notes his knee has increased swelling. He denies any nausea, vomiting, chest pain, fever, or chills. He reports no desire to kill himself. He does request to be seen by orthopedic surgeon. Objective - Vital Signs/Intake and Output Vital Signs (last 24 hours): Temp Pulse Resp BP Pulse Ox 99.2 F 83 18 123/84 10/02/16 07:22 10/02/16 16:37 10/02/16 16:37 10/02/16 16:37 - Medications Medications: Current Medications Acetaminophen (Tylenol 325mg Tab) 650 mg PO Q6H PRN PRN Reason: Pain, Mild (1-3) Al Hydrox/Mg Hydrox/Simethicone (Maalox Plus 30 Ml) 30 ml PO DAILY PRN PRN Reason: Upset Stomach Apixaban (Eliquis) 2.5 mg PO BID [facility] PRN Reason: Protocol Last Admin: 10/02/16 11:20 Dose: 2.5 mg Atorvastatin Calcium (Lipitor) 20 mg PO HS [facility] Last Admin: 10/01/16 21:21 Dose: 20 mg Bupropion HCl (Wellbutrin) 75 mg PO BID [facility] Last Admin: 10/02/16 09:00 Dose: 75 mg Docusate Sodium (Colace) 100 mg PO BID [facility] Last Admin: 10/02/16 09:00 Dose: 100 mg Folic Acid (Folic Acid) 1 mg PO DAILY [facility] Last Admin: 10/02/16 09:00 Dose: 1 mg Levothyroxine Sodium (Synthroid) 200 mcg PO ACB [facility] Last Admin: 10/02/16 07:46 Dose: 200 mcg Lorazepam (Ativan) 1 mg PO BID [facility] PRN Reason: Protocol Magnesium Hydroxide (Milk Of Magnesia) 30 ml PO DAILY PRN PRN Reason: Constipation Last Admin: 10/01/16 08:00 Dose: 30 ml Multivitamins/Minerals (Therapeutic-M Tab) 1 tab PO DAILY [facility] Last Admin: 10/02/16 09:00 Dose: 1 tab Pantoprazole Sodium (Protonix Ec Tab) 40 mg PO ACB [facility] Last Admin: 10/02/16 07:46 Dose: 40 mg Sucralfate (Carafate Oral Susp) 1 gm PO BID [facility] Last Admin: 10/02/16 09:00 Dose: 1 gm Thiamine HCl (Vitamin B1 Tab) 100 mg PO DAILY [facility] Last Admin: 10/02/16 09:00 Dose: 100 mg Tramadol HCl (Ultram) 25 mg PO BID PRN PRN Reason: Pain, moderate (4-7) Last Admin: 10/02/16 15:07 Dose: 25 mg Trazodone HCl (Desyrel) 50 mg PO HS PRN PRN Reason: Insomnia Last Admin: 10/01/16 21:22 Dose: 50 mg - Labs Labs: 10/02/16 07:34 10/02/16 07:34 - Constitutional Appears: Non-toxic, No Acute Distress - Head Exam Head Exam: ATRAUMATIC, NORMOCEPHALIC - Eye Exam Eye Exam: EOMI, Normal appearance, PERRL Pupil Exam: NORMAL ACCOMODATION, PERRL - ENT Exam ENT Exam: Mucous Membranes Moist, Normal Oropharynx - Respiratory Exam Respiratory Exam: Clear to Ausculation Bilateral, NORMAL BREATHING PATTERN. absent: Rales, Rhonchi, Wheezes - Cardiovascular Exam Cardiovascular Exam: REGULAR RHYTHM, +S1, +S2. absent: Gallop, Rubs, Murmur - GI/Abdominal Exam GI & Abdominal Exam: Soft, Normal Bowel Sounds. absent: Tenderness - Extremities Exam Extremities Exam: Tenderness (right knee anterolateral aspect). absent: Normal Inspection (right knee swelling, warm to the touch, unable to fully extend) - Back Exam Back Exam: NORMAL INSPECTION. absent: rash noted, tenderness - Neurological Exam Neurological Exam: Alert, Awake, Oriented x3 - Psychiatric Exam Psychiatric exam: Normal Affect, Normal Mood - Skin Skin Exam: Dry, Intact, Normal Color, Warm Assessment and Plan - Assessment and Plan (Free Text) Assessment: 61 y/o M on psych floor with depression w/ SI, complains of right knee pain s/p fall, hypothyroidism, and anemia. Plan: 1. Depression w/ SI * Management as per psychiatry * On wellbutrin and trazodone * encouraged to attend sessions and groups 2. Anemia * Likely secondary to recent GI bleed and alcohol abuse * Hgb and hct stable at this time * Continue Protonix and Carafate daily * Zofran PRN nausea 3. ETOH withdrawal * Continue Ativan taper * Continue Thiamine, Folic acid, and multivitamin * encouraged cessation of alcohol use 4. Right Knee pain * s/p fall * knee x-ray showed joint space narrowing lateral aspect of patello-femoral joint * orthopedic surgeon consulted, help appreciated * uric acid wnl * Pain control with tramadol * physical therapy eval * in wheelchair 5. Hypothyroidism * TSH was 11.20 * Reported hadn't taken taken for a long time. * Continue Synthroid 200 mcg qd 6. Hx of PE and DVT * Continue Eliquis 2.5 mg PO BID * Monitor for bleed, SOB, or calf pain 7. HLD * continue Lipitor 8. PPX * Tylenol * Colace * Maalox * milk of mag Assessment and plan discussed with attending physician. <Nickolas HESTER,Cindy - Last Filed: 10/04/16 13:23> Objective - Vital Signs/Intake and Output Vital Signs (last 24 hours): Temp Pulse Resp BP Pulse Ox 97.8 F 70 18 92/53 L 10/04/16 06:28 10/04/16 06:28 10/04/16 06:28 10/04/16 06:28 - Medications Medications: Current Medications Acetaminophen (Tylenol 325mg Tab) 650 mg PO Q6H PRN PRN Reason: Pain, Mild (1-3) Al Hydrox/Mg Hydrox/Simethicone (Maalox Plus 30 Ml) 30 ml PO DAILY PRN PRN Reason: Upset Stomach Apixaban (Eliquis) 2.5 mg PO BID [facility] PRN Reason: Protocol Last Admin: 10/04/16 08:42 Dose: 2.5 mg Atorvastatin Calcium (Lipitor) 20 mg PO HS [facility] Last Admin: 10/03/16 22:00 Dose: 20 mg Bupropion HCl (Wellbutrin Xl) 150 mg PO DAILY [facility] Last Admin: 10/04/16 08:41 Dose: 150 mg Colchicine (Colocrys) 0.6 mg PO DAILY [facility] Stop: 10/10/16 08:00 Last Admin: 10/04/16 08:41 Dose: 0.6 mg Docusate Sodium (Colace) 100 mg PO BID [facility] Last Admin: 10/04/16 08:42 Dose: 100 mg Fluticasone Propionate (Flonase) 1 actuation NS DAILY [facility] Last Admin: 10/04/16 08:48 Dose: 1 actuation Folic Acid (Folic Acid) 1 mg PO DAILY [facility] Last Admin: 10/04/16 08:42 Dose: 1 mg Levothyroxine Sodium (Synthroid) 200 mcg PO ACB [facility] Last Admin: 10/04/16 08:42 Dose: 200 mcg Lorazepam (Ativan) 0.5 mg PO BID [facility] PRN Reason: Protocol Last Admin: 10/04/16 08:41 Dose: 0.5 mg Magnesium Hydroxide (Milk Of Magnesia) 30 ml PO DAILY PRN PRN Reason: Constipation Last Admin: 10/01/16 08:00 Dose: 30 ml Multivitamins/Minerals (Therapeutic-M Tab) 1 tab PO DAILY [facility] Last Admin: 10/04/16 08:41 Dose: 1 tab Pantoprazole Sodium (Protonix Ec Tab) 40 mg PO ACB [facility] Last Admin: 10/04/16 08:42 Dose: 40 mg Sucralfate (Carafate Oral Susp) 1 gm PO BID [facility] Last Admin: 10/04/16 08:41 Dose: 1 gm Thiamine HCl (Vitamin B1 Tab) 100 mg PO DAILY [facility] Last Admin: 10/04/16 08:41 Dose: 100 mg Tramadol HCl (Ultram) 25 mg PO Q6H PRN PRN Reason: Pain, moderate (4-7) Trazodone HCl (Desyrel) 50 mg PO HS PRN PRN Reason: Insomnia Last Admin: 10/03/16 22:02 Dose: 50 mg - Labs Labs: 10/02/16 07:34 10/02/16 07:34 Attending/Attestation - Attestation I have fully participated in the care of the patient.: Yes I have reviewed all pertinent clinical information, including history, physical exam and plan: Yes Notes (Text): 10/04/16 13:22 Patient was seen and examined with medical photographer .Agreed with resident assessment and plan. Patient is c/o right knee pain, has right knee effusion, ortho evaluation is pending. His hemoglobin is stable.His thrombocytopenia was due to ongoing alcohol abuse and is improving Management plan was discussed in detail with patient Education was provided.
[2016-10-03] MEDS: Sucralfate 1 gm/10 ml Oral Susp UD PO SCH ×2 (08:59→17:48)
[2016-10-03] MEDS: Pantoprazole 40 mg EC Tab PO SCH (09:00)
[2016-10-03] MEDS: Multivitamin With Minerals Tab PO SCH (09:00)
[2016-10-03] MEDS: Levothyroxine 200 MCG TAB PO SCH (09:01)
[2016-10-03] MEDS: Fluticasone Nasal 50 mcg/Spray NS SCH (09:49)
--- NOTE | 2016-10-03 15:11 | CP.PCM.PN ---
<Jayden Castro - Last Filed: 10/03/16 15:07> Subjective - Date & Time of Evaluation Date of Evaluation: 10/03/16 Time of Evaluation: 07:30 - Subjective Subjective: Dr. Castro PGY 1 Hospitalist note Patient seen and evaluated in room on psychiatry floor. He ambulated from one side of his room to the bed with minor difficulty. He reports his leg pain has vastly improved and has less swelling. He appears in a brighter mood though complains of some sinus drainage. He denies any fever,chills, nausea,vomiting, diarrhea, or dysuria. He says he feels much better and denies any audio/visual hallucinations, or desire to harm himself or others. Objective - Vital Signs/Intake and Output Vital Signs (last 24 hours): Temp Pulse Resp BP Pulse Ox 97.9 F 68 20 122/82 10/03/16 07:32 10/03/16 07:32 10/03/16 07:32 10/03/16 07:32 - Medications Medications: Current Medications Acetaminophen (Tylenol 325mg Tab) 650 mg PO Q6H PRN PRN Reason: Pain, Mild (1-3) Al Hydrox/Mg Hydrox/Simethicone (Maalox Plus 30 Ml) 30 ml PO DAILY PRN PRN Reason: Upset Stomach Apixaban (Eliquis) 2.5 mg PO BID [facility] PRN Reason: Protocol Last Admin: 10/03/16 09:01 Dose: 2.5 mg Atorvastatin Calcium (Lipitor) 20 mg PO HS [facility] Last Admin: 10/02/16 21:00 Dose: 20 mg Bupropion HCl (Wellbutrin) 75 mg PO BID [facility] Last Admin: 10/03/16 09:00 Dose: 75 mg Colchicine (Colocrys) 0.6 mg PO DAILY [facility] Stop: 10/10/16 08:00 Last Admin: 10/03/16 09:01 Dose: 0.6 mg Docusate Sodium (Colace) 100 mg PO BID [facility] Last Admin: 10/03/16 08:59 Dose: Not Given Fluticasone Propionate (Flonase) 1 actuation NS DAILY [facility] Last Admin: 10/03/16 09:49 Dose: 1 actuation Folic Acid (Folic Acid) 1 mg PO DAILY [facility] Last Admin: 10/03/16 09:00 Dose: 1 mg Levothyroxine Sodium (Synthroid) 200 mcg PO ACB [facility] Last Admin: 10/03/16 09:01 Dose: 200 mcg Lorazepam (Ativan) 1 mg PO BID [facility] PRN Reason: Protocol Last Admin: 10/03/16 09:00 Dose: 1 mg Magnesium Hydroxide (Milk Of Magnesia) 30 ml PO DAILY PRN PRN Reason: Constipation Last Admin: 10/01/16 08:00 Dose: 30 ml Multivitamins/Minerals (Therapeutic-M Tab) 1 tab PO DAILY [facility] Last Admin: 10/03/16 09:00 Dose: 1 tab Pantoprazole Sodium (Protonix Ec Tab) 40 mg PO ACB [facility] Last Admin: 10/03/16 09:00 Dose: 40 mg Sucralfate (Carafate Oral Susp) 1 gm PO BID [facility] Last Admin: 10/03/16 08:59 Dose: 1 gm Thiamine HCl (Vitamin B1 Tab) 100 mg PO DAILY [facility] Last Admin: 10/03/16 09:00 Dose: 100 mg Tramadol HCl (Ultram) 25 mg PO Q6H PRN PRN Reason: Pain, moderate (4-7) Trazodone HCl (Desyrel) 50 mg PO HS PRN PRN Reason: Insomnia Last Admin: 10/02/16 21:00 Dose: 50 mg - Labs Labs: 10/02/16 07:34 10/02/16 07:34 - Constitutional Appears: Non-toxic, No Acute Distress - Head Exam Head Exam: ATRAUMATIC, NORMOCEPHALIC - Eye Exam Eye Exam: EOMI, Normal appearance, PERRL Pupil Exam: NORMAL ACCOMODATION, PERRL - ENT Exam ENT Exam: Mucous Membranes Moist - Neck Exam Neck Exam: Normal Inspection - Respiratory Exam Respiratory Exam: Clear to Ausculation Bilateral, NORMAL BREATHING PATTERN. absent: Rales, Rhonchi, Wheezes - Cardiovascular Exam Cardiovascular Exam: REGULAR RHYTHM, +S1, +S2. absent: Gallop, Rubs, Murmur - GI/Abdominal Exam GI & Abdominal Exam: Soft, Normal Bowel Sounds. absent: Tenderness - Extremities Exam Extremities Exam: Tenderness (right knee lateral aspect). absent: Normal Inspection (mild swellling on right knee, small abrasion) - Back Exam Back Exam: NORMAL INSPECTION. absent: rash noted, tenderness - Neurological Exam Neurological Exam: Alert, Awake, CN II-XII Intact, Oriented x3 - Psychiatric Exam Psychiatric exam: Normal Affect, Normal Mood - Skin Skin Exam: Dry, Intact, Normal Color, Warm Assessment and Plan - Assessment and Plan (Free Text) Assessment: 61 y/o M on psych floor with depression w/ SI, complains of right knee pain s/p fall, hypothyroidism, and anemia. S/P arthrocentesis by orthpedic surgeon. Plan: 1. Depression w/ SI * Management as per psychiatry * On wellbutrin and trazodone * encouraged to attend sessions and groups 2. Anemia * Improved * Likely secondary to recent GI bleed and alcohol abuse * Hgb and hct stable at this time * Continue Protonix and Carafate daily * Zofran PRN nausea 3. ETOH withdrawal * Continue Ativan taper * Continue Thiamine, Folic acid, and multivitamin * encouraged cessation of alcohol use 4. Right Knee pain * s/p fall * knee x-ray showed joint space narrowing lateral aspect of patello-femoral joint * orthopedic surgeon consulted, help appreciated * knee aspirated and steroid injection- positive for gout * started on colchicine 0.6mg * uric acid wnl * Pain control with tramadol * physical therapy eval * in wheelchair 5. Hypothyroidism * TSH was 11.20 * Reported hadn't taken taken for a long time. * Continue Synthroid 200 mcg qd 6. Hx of PE and DVT * Continue Eliquis 2.5 mg PO BID * Monitor for bleed, SOB, or calf pain 7. HLD * continue Lipitor 8.Allergic rhinitis * Flonase NS 9. PPX * Tylenol * Colace * Maalox * milk of mag Assessment and plan discussed with attending physician. <Nickolas HESTER,Cindy - Last Filed: 10/04/16 13:28> Objective - Vital Signs/Intake and Output Vital Signs (last 24 hours): Temp Pulse Resp BP Pulse Ox 97.8 F 70 18 92/53 L 10/04/16 06:28 10/04/16 06:28 10/04/16 06:28 10/04/16 06:28 - Medications Medications: Current Medications Acetaminophen (Tylenol 325mg Tab) 650 mg PO Q6H PRN PRN Reason: Pain, Mild (1-3) Al Hydrox/Mg Hydrox/Simethicone (Maalox Plus 30 Ml) 30 ml PO DAILY PRN PRN Reason: Upset Stomach Apixaban (Eliquis) 2.5 mg PO BID [facility] PRN Reason: Protocol Last Admin: 10/04/16 08:42 Dose: 2.5 mg Atorvastatin Calcium (Lipitor) 20 mg PO HS [facility] Last Admin: 10/03/16 22:00 Dose: 20 mg Bupropion HCl (Wellbutrin Xl) 150 mg PO DAILY [facility] Last Admin: 10/04/16 08:41 Dose: 150 mg Colchicine (Colocrys) 0.6 mg PO DAILY [facility] Stop: 10/10/16 08:00 Last Admin: 10/04/16 08:41 Dose: 0.6 mg Docusate Sodium (Colace) 100 mg PO BID [facility] Last Admin: 10/04/16 08:42 Dose: 100 mg Fluticasone Propionate (Flonase) 1 actuation NS DAILY [facility] Last Admin: 10/04/16 08:48 Dose: 1 actuation Folic Acid (Folic Acid) 1 mg PO DAILY [facility] Last Admin: 10/04/16 08:42 Dose: 1 mg Levothyroxine Sodium (Synthroid) 200 mcg PO ACB [facility] Last Admin: 10/04/16 08:42 Dose: 200 mcg Lorazepam (Ativan) 0.5 mg PO BID [facility] PRN Reason: Protocol Last Admin: 10/04/16 08:41 Dose: 0.5 mg Magnesium Hydroxide (Milk Of Magnesia) 30 ml PO DAILY PRN PRN Reason: Constipation Last Admin: 10/01/16 08:00 Dose: 30 ml Multivitamins/Minerals (Therapeutic-M Tab) 1 tab PO DAILY [facility] Last Admin: 10/04/16 08:41 Dose: 1 tab Pantoprazole Sodium (Protonix Ec Tab) 40 mg PO ACB [facility] Last Admin: 10/04/16 08:42 Dose: 40 mg Sucralfate (Carafate Oral Susp) 1 gm PO BID [facility] Last Admin: 10/04/16 08:41 Dose: 1 gm Thiamine HCl (Vitamin B1 Tab) 100 mg PO DAILY [facility] Last Admin: 10/04/16 08:41 Dose: 100 mg Tramadol HCl (Ultram) 25 mg PO Q6H PRN PRN Reason: Pain, moderate (4-7) Trazodone HCl (Desyrel) 50 mg PO HS PRN PRN Reason: Insomnia Last Admin: 10/03/16 22:02 Dose: 50 mg - Labs Labs: 10/02/16 07:34 10/02/16 07:34 Attending/Attestation - Attestation I have personally seen and examined this patient.: Yes I have fully participated in the care of the patient.: Yes I have reviewed all pertinent clinical information, including history, physical exam and plan: Yes Notes (Text): 10/04/16 13:23 Patient was seen and examined with medical aide .Agreed with resident assessment and plan. Patient underwent right knee atrhocentesis yesterday.He was also given intra articular steroid injection .His knee pain has improved.He is feeling much improved and is ambulatory.His hemoglobin is stable.Thrombocytopenia is stable. Patient is on anticoagulation with Elequis for Proxysmal AF and H/O DVT and PE. The issue of chronic alcohol abuse was discussed in detail with him Patient is feeling close to his base line.We will sign off. Please call us back if any question. Management plan was discussed in detail with patient Education was provided.
--- NOTE | 2016-10-03 15:50 | PCM.PYCHPN ---
Psychiatric Progress Note - Psychiatric Progress Note Patient seen today, length of contact: 30 minutes Patient Chief Complaint: "my knee pain is much better" Problems Identified/Issues Discussed: Suicide/ homicide prevention, past psychiatric h/o, current psychiatric symptoms , medical problems, risk/benefits and alternatives of medications, medications compliance, coping strategies, substance abuse h/o, relapse prevention, importance of follow up with psychiatrist and therapist, discharge plan. Medical Problems: possible gout, history of alcohol use disorder, no withdrawal symptoms, patient was seen by orthopedist Dr. Russell, chronic knee pain Diagnostic Results: 10/02/16 07:34 10/02/16 07:34 Lab Results 10/02/16 12:41: Fluid Type Synovial fluid, Synovial WBC 87511.0 H, Synovial RBC 4000.0 H, Synovial Neutrophils 92.0 H, Synovial Lymphocytes 8.0 H, Synov Monos/ Macrophage 0 10/02/16 12:41: Fluid Source Cancelled, Fluid Appearance Cancelled, Fluid WBC Cancelled, Fluid RBC Cancelled, Fluid Tot Cell Count Cancelled, Fluid Neutrophils Cancelled, Fluid Lymphocytes Cancelled, Fld Monocyte/Macrophag Cancelled, Fluid Comment Cancelled 10/02/16 07:34: Sodium 131 L, Potassium 4.4, Chloride 98, Carbon Dioxide 28, Anion Gap 9 L, BUN 10, Creatinine 0.9, Est GFR ( Amer) > 60, Est GFR (Non -Af Amer) > 60, Random Glucose 86, Calcium 9.0 10/02/16 07:34: WBC 4.8, RBC 3.63, Hgb 12.1 L, Hct 35.1 L, MCV 96.7, MCH 33.3, MCHC 34.5, RDW 15.6 H, Plt Count 90 L, MPV 10.5, Gran % 56.1, Lymph % (Auto) 18.6 L, [place] % (Auto) 24.1 H, Eos % (Auto) 0.6 L, Baso % (Auto) 0.6, Gran # 2.68 , Lymph # 0.9 L, [place] # 1.2 H, Eos # 0.0, Baso # 0.03 10/01/16 12:45: WBC 4.5 D, RBC 3.81, Hgb 12.5 L, Hct 36.7 L, MCV 96.3, MCH 32.8 , MCHC 34.1, RDW 15.8 H, Plt Count 76 L, MPV 10.0, Gran % 62.6, Lymph % (Auto) 13.2 L, [place] % (Auto) 23.1 H, Eos % (Auto) 0.7 L, Baso % (Auto) 0.4, Gran # 2.79 , Lymph # 0.6 L, [place] # 1.0 H, Eos # 0.0, Baso # 0.02 10/01/16 11:20: Sodium 135, Potassium 4.4, Chloride 97 L, Carbon Dioxide 31, Anion Gap 11, BUN 9, Creatinine 0.9, Est GFR ( Amer) > 60, Est GFR (Non- Af Amer) > 60, Random Glucose 90, Uric Acid 7.0, Calcium 9.2, Total Bilirubin 1.1, AST 67 H, ALT 63 H, Alkaline Phosphatase 65, Total Protein 7.0, Albumin 3.7 , Globulin 3.3, Albumin/Globulin Ratio 1.1, Triglycerides 97, Cholesterol 152, LDL Cholesterol Direct 48, HDL Cholesterol 75 H 10/01/16 11:20: RPR Nonreactive 10/01/16 11:20: Free T4 0.98, TSH 3rd Generation 11.20 H Vital Signs Temp Pulse Resp BP 10/02/16 07:22 99.2 F 81 20 139/91 H 10/01/16 15:56 77 144/85 10/01/16 07:03 98.9 F 69 20 136/95 H Lab Studies 10/02/16 10/02/16 10/02/16 Range/Units 12:41 12:41 07:34 WBC (4.5-11.0) 10^3/ul RBC (3.5-6.1) 10^6/uL Hgb (14.0-18.0) gm/dL Hct (42.0-52.0) % MCV (80.0-105.0) fL MCH (25.0-35.0) pg MCHC (31.0-37.0) g/dl RDW (11.5-14.5) % Plt Count (120.0-450.0) 10^3/uL MPV (7.0-11.0) fl Gran % (50.0-68.0) % Lymph % (Auto) (22.0-35.0) % [place] % (Auto) (1.0-6.0) % Eos % (Auto) (1.5-5.0) % Baso % (Auto) (0.0-3.0) % Gran # (1.4-6.5) Lymph # (1.2-3.4) [place] # (0.1-0.6) Eos # (0.0-0.7) Baso # (0.0-2.0) K/mm3 Sodium 131 L (132-148) mmol/L Potassium 4.4 (3.6-5.0) mmol/L Chloride 98 (95-110) mmol/L Carbon Dioxide 28 (21-33) mmol/L Anion Gap 9 L (10-20) BUN 10 (7-21) mg/dL Creatinine 0.9 (0.5-1.4) mg/dL Est GFR ( Amer) > 60 Est GFR (Non-Af Amer) > 60 Random Glucose 86 (70-110) mg/dL Calcium 9.0 (8.4-10.5) mg/dL Fluid Type Synovial fluid Fluid Source Cancelled Fluid Appearance Cancelled Fluid WBC Cancelled Fluid RBC Cancelled Fluid Tot Cell Count Cancelled Fluid Neutrophils Cancelled Fluid Lymphocytes Cancelled Fld Monocyte/Macrophag Cancelled Fluid Comment Cancelled Synovial WBC 13892.0 H (0.0-150.0) /uL Synovial RBC 4000.0 H (0.0-0.0) /uL Synovial Neutrophils 92.0 H (0-0) % Synovial Lymphocytes 8.0 H (0-0) % Synov Monos/Macrophage 0 (0-0) % RPR (NONREACTIVE) 10/02/16 10/01/16 Range/Units 07:34 11:20 WBC 4.8 (4.5-11.0) 10^3/ul RBC 3.63 (3.5-6.1) 10^6/uL Hgb 12.1 L (14.0-18.0) gm/dL Hct 35.1 L (42.0-52.0) % MCV 96.7 (80.0-105.0) fL MCH 33.3 (25.0-35.0) pg MCHC 34.5 (31.0-37.0) g/dl RDW 15.6 H (11.5-14.5) % Plt Count 90 L (120.0-450.0) 10^3/uL MPV 10.5 (7.0-11.0) fl Gran % 56.1 (50.0-68.0) % Lymph % (Auto) 18.6 L (22.0-35.0) % [place] % (Auto) 24.1 H (1.0-6.0) % Eos % (Auto) 0.6 L (1.5-5.0) % Baso % (Auto) 0.6 (0.0-3.0) % Gran # 2.68 (1.4-6.5) Lymph # 0.9 L (1.2-3.4) [place] # 1.2 H (0.1-0.6) Eos # 0.0 (0.0-0.7) Baso # 0.03 (0.0-2.0) K/mm3 Sodium (132-148) mmol/L Potassium (3.6-5.0) mmol/L Chloride (95-110) mmol/L Carbon Dioxide (21-33) mmol/L Anion Gap (10-20) BUN (7-21) mg/dL Creatinine (0.5-1.4) mg/dL Est GFR ( Amer) Est GFR (Non-Af Amer) Random Glucose (70-110) mg/dL Calcium (8.4-10.5) mg/dL Fluid Type Fluid Source Fluid Appearance Fluid WBC Fluid RBC Fluid Tot Cell Count Fluid Neutrophils Fluid Lymphocytes Fld Monocyte/Macrophag Fluid Comment Synovial WBC (0.0-150.0) /uL Synovial RBC (0.0-0.0) /uL Synovial Neutrophils (0-0) % Synovial Lymphocytes (0-0) % Synov Monos/Macrophage (0-0) % RPR Nonreactive (NONREACTIVE) DSM 5 Symptoms Update: shortly pt is 61yo Male with not formal psychiatric h/o, h/o alcohol use disorder, pt was sober since 1992, relapsed on 11/07/2015 after pt's , pt was keep drinking for the past year, initially was admitted to the med floor for evaluation of upper GI bleeding, pt was consulted by this technical writer and editor, was found to be depressed, hopeless, helpless, passive wish to be . Pt was medically stable, was transferred to the psychiatric inpatient unit for further evaluation and stabilization and meds titration. pt was seen today at his room, patient has acceptable personal hygiene, reported "knee pain much better.." patient denied any withdrawal symptoms, reported feeling comfortable, vital signs are stable. Patient reported that he feels less depressed, reported that Wellbutrin started to work, his mood is "slowly improving", had fair night sleep. Patient's more hopeful for the future. Patient started to go to groups, visible in the unit, but not socializing with other patients. Patient tolerates medication well, no side effects observed or reported, aims 0 , no EPS. Impression rule out major depressive disorder Rule out adjustment disorder with depressed and anxious mood Mood disorder due to general medical condition.Alcohol use disorder Withdrawal symptoms are betterhe she is he is middle of the road there is here and is the with his she is in the last year over as will as as she she is is Medication Change: Yes (Ativan was decreased,Wellbutrin extended release) Medical Record Reviewed: Yes Consults ordered or reviewed: medical team consult appreciated Orthopedist consult appreciated This technical writer and editor discussed case with the medical team as well as orthopedic team Mental Status Examination - Cognitive Function Orientation: Person, Place, Situation, Time Memory: Intact Attention: Poor (improvement) Concentration: Poor (improvement) Association: WNL Fund of Knowledge: WNL - Mood Mood: Depressed (I feel better) - Affect Affect: Constricted (but reactive mood congruent) - Speech Speech: Appropriate - Formal Thought Process Formal Thought Process: No Impairment - Suicidal Ideation Suicidal Ideation: No - Homicidal Ideation Homicidal Ideation: No Goal/Treatment Plan - Goal/Treatment Plan Need for Continued Stay: Remain at risks for inpatient hospitalization, Severe depression anxiety, Discharge may exacerbated symptoms, Severe functional impairment Progress Toward Problem(s) and Goals/Treatment Plan: Milieu, structure, supportive therapy medical meds up to medical team will continue ativan tapering 0.5mg bid for alcohol withdrawal will give extended release of [id number] daily for MDD will give Trazodone prn for insomnia 50mg hs medical consult appreciated Ortho consult appreciated PT evaluation SW evaluation will monitor closely Estimated Date of D/C: 10/09/16 (we will monitor closely)
[2016-10-04] MEDS: Sucralfate 1 gm/10 ml Oral Susp UD PO SCH ×2 (08:41→15:17)
[2016-10-04] MEDS: buPROPion 150 mg/24 Hours XL Tab PO SCH (08:41)
[2016-10-04] MEDS: Multivitamin With Minerals Tab PO SCH (08:41)
[2016-10-04] MEDS: Pantoprazole 40 mg EC Tab PO SCH (08:42)
[2016-10-04] MEDS: Levothyroxine 200 MCG TAB PO SCH (08:42)
[2016-10-04] MEDS: Fluticasone Nasal 50 mcg/Spray NS SCH (08:48)
--- NOTE | 2016-10-04 17:40 | PCM.PYCHPN ---
Psychiatric Progress Note - Psychiatric Progress Note Patient seen today, length of contact: 30 minutes Patient Chief Complaint: "I am doing little better" Problems Identified/Issues Discussed: Suicide/ homicide prevention, past psychiatric h/o, current psychiatric symptoms , medical problems, risk/benefits and alternatives of medications, medications compliance, coping strategies, substance abuse h/o, relapse prevention, importance of follow up with psychiatrist and therapist, discharge plan. Medical Problems: possible gout, history of alcohol use disorder, no withdrawal symptoms, patient was seen by orthopedist Dr. Mars for chronic knee pain Diagnostic Results: 10/02/16 07:34 10/02/16 07:34 Lab Results 10/02/16 12:41: Fluid Type Synovial fluid, Synovial WBC 77205.0 H, Synovial RBC 4000.0 H, Synovial Neutrophils 92.0 H, Synovial Lymphocytes 8.0 H, Synov Monos/ Macrophage 0 10/02/16 12:41: Fluid Source Cancelled, Fluid Appearance Cancelled, Fluid WBC Cancelled, Fluid RBC Cancelled, Fluid Tot Cell Count Cancelled, Fluid Neutrophils Cancelled, Fluid Lymphocytes Cancelled, Fld Monocyte/Macrophag Cancelled, Fluid Comment Cancelled 10/02/16 07:34: Sodium 131 L, Potassium 4.4, Chloride 98, Carbon Dioxide 28, Anion Gap 9 L, BUN 10, Creatinine 0.9, Est GFR ( Amer) > 60, Est GFR (Non -Af Amer) > 60, Random Glucose 86, Calcium 9.0 10/02/16 07:34: WBC 4.8, RBC 3.63, Hgb 12.1 L, Hct 35.1 L, MCV 96.7, MCH 33.3, MCHC 34.5, RDW 15.6 H, Plt Count 90 L, MPV 10.5, Gran % 56.1, Lymph % (Auto) 18.6 L, [place] % (Auto) 24.1 H, Eos % (Auto) 0.6 L, Baso % (Auto) 0.6, Gran # 2.68 , Lymph # 0.9 L, [place] # 1.2 H, Eos # 0.0, Baso # 0.03 10/01/16 12:45: WBC 4.5 D, RBC 3.81, Hgb 12.5 L, Hct 36.7 L, MCV 96.3, MCH 32.8 , MCHC 34.1, RDW 15.8 H, Plt Count 76 L, MPV 10.0, Gran % 62.6, Lymph % (Auto) 13.2 L, [place] % (Auto) 23.1 H, Eos % (Auto) 0.7 L, Baso % (Auto) 0.4, Gran # 2.79 , Lymph # 0.6 L, [place] # 1.0 H, Eos # 0.0, Baso # 0.02 10/01/16 11:20: Sodium 135, Potassium 4.4, Chloride 97 L, Carbon Dioxide 31, Anion Gap 11, BUN 9, Creatinine 0.9, Est GFR ( Amer) > 60, Est GFR (Non- Af Amer) > 60, Random Glucose 90, Uric Acid 7.0, Calcium 9.2, Total Bilirubin 1.1, AST 67 H, ALT 63 H, Alkaline Phosphatase 65, Total Protein 7.0, Albumin 3.7 , Globulin 3.3, Albumin/Globulin Ratio 1.1, Triglycerides 97, Cholesterol 152, LDL Cholesterol Direct 48, HDL Cholesterol 75 H 10/01/16 11:20: RPR Nonreactive 10/01/16 11:20: Free T4 0.98, TSH 3rd Generation 11.20 H Vital Signs Temp Pulse Resp BP 10/02/16 07:22 99.2 F 81 20 139/91 H 10/01/16 15:56 77 144/85 10/01/16 07:03 98.9 F 69 20 136/95 H Lab Studies 10/02/16 10/02/16 10/02/16 Range/Units 12:41 12:41 07:34 WBC (4.5-11.0) 10^3/ul RBC (3.5-6.1) 10^6/uL Hgb (14.0-18.0) gm/dL Hct (42.0-52.0) % MCV (80.0-105.0) fL MCH (25.0-35.0) pg MCHC (31.0-37.0) g/dl RDW (11.5-14.5) % Plt Count (120.0-450.0) 10^3/uL MPV (7.0-11.0) fl Gran % (50.0-68.0) % Lymph % (Auto) (22.0-35.0) % [place] % (Auto) (1.0-6.0) % Eos % (Auto) (1.5-5.0) % Baso % (Auto) (0.0-3.0) % Gran # (1.4-6.5) Lymph # (1.2-3.4) [place] # (0.1-0.6) Eos # (0.0-0.7) Baso # (0.0-2.0) K/mm3 Sodium 131 L (132-148) mmol/L Potassium 4.4 (3.6-5.0) mmol/L Chloride 98 (95-110) mmol/L Carbon Dioxide 28 (21-33) mmol/L Anion Gap 9 L (10-20) BUN 10 (7-21) mg/dL Creatinine 0.9 (0.5-1.4) mg/dL Est GFR ( Amer) > 60 Est GFR (Non-Af Amer) > 60 Random Glucose 86 (70-110) mg/dL Calcium 9.0 (8.4-10.5) mg/dL Fluid Type Synovial fluid Fluid Source Cancelled Fluid Appearance Cancelled Fluid WBC Cancelled Fluid RBC Cancelled Fluid Tot Cell Count Cancelled Fluid Neutrophils Cancelled Fluid Lymphocytes Cancelled Fld Monocyte/Macrophag Cancelled Fluid Comment Cancelled Synovial WBC 21890.0 H (0.0-150.0) /uL Synovial RBC 4000.0 H (0.0-0.0) /uL Synovial Neutrophils 92.0 H (0-0) % Synovial Lymphocytes 8.0 H (0-0) % Synov Monos/Macrophage 0 (0-0) % RPR (NONREACTIVE) 10/02/16 10/01/16 Range/Units 07:34 11:20 WBC 4.8 (4.5-11.0) 10^3/ul RBC 3.63 (3.5-6.1) 10^6/uL Hgb 12.1 L (14.0-18.0) gm/dL Hct 35.1 L (42.0-52.0) % MCV 96.7 (80.0-105.0) fL MCH 33.3 (25.0-35.0) pg MCHC 34.5 (31.0-37.0) g/dl RDW 15.6 H (11.5-14.5) % Plt Count 90 L (120.0-450.0) 10^3/uL MPV 10.5 (7.0-11.0) fl Gran % 56.1 (50.0-68.0) % Lymph % (Auto) 18.6 L (22.0-35.0) % [place] % (Auto) 24.1 H (1.0-6.0) % Eos % (Auto) 0.6 L (1.5-5.0) % Baso % (Auto) 0.6 (0.0-3.0) % Gran # 2.68 (1.4-6.5) Lymph # 0.9 L (1.2-3.4) [place] # 1.2 H (0.1-0.6) Eos # 0.0 (0.0-0.7) Baso # 0.03 (0.0-2.0) K/mm3 Sodium (132-148) mmol/L Potassium (3.6-5.0) mmol/L Chloride (95-110) mmol/L Carbon Dioxide (21-33) mmol/L Anion Gap (10-20) BUN (7-21) mg/dL Creatinine (0.5-1.4) mg/dL Est GFR ( Amer) Est GFR (Non-Af Amer) Random Glucose (70-110) mg/dL Calcium (8.4-10.5) mg/dL Fluid Type Fluid Source Fluid Appearance Fluid WBC Fluid RBC Fluid Tot Cell Count Fluid Neutrophils Fluid Lymphocytes Fld Monocyte/Macrophag Fluid Comment Synovial WBC (0.0-150.0) /uL Synovial RBC (0.0-0.0) /uL Synovial Neutrophils (0-0) % Synovial Lymphocytes (0-0) % Synov Monos/Macrophage (0-0) % RPR Nonreactive (NONREACTIVE) Temp Pulse Resp BP Pulse Ox 97.8 F 75 18 127/83 10/04/16 06:28 10/04/16 16:12 10/04/16 06:28 10/04/16 16:12 DSM 5 Symptoms Update: shortly pt is 61yo Male with not formal psychiatric h/o, h/o alcohol use disorder, pt was sober since 1992, relapsed on 11/07/2015 after pt's , pt was keep drinking for the past year, initially was admitted to the med floor for evaluation of upper GI bleeding, pt was consulted by this fiction writer, was found to be depressed, hopeless, helpless, passive wish to be . Pt was medically stable, was transferred to the psychiatric inpatient unit for further evaluation and stabilization and meds titration. pt was seen today at his room, patient has acceptable personal hygiene, reported "knee pain much better.." patient denied any withdrawal symptoms, reported feeling comfortable, vital signs are stable. Patient reported that he feels less depressed, reported that Wellbutrin started to work, his mood is "slowly improving", had fair night sleep. Patient's more hopeful for the future. Patient started to go to groups, visible in the unit, but not socializing with other patients. Patient tolerates medication well, no side effects observed or reported, aims 0 , no EPS. Impression rule out major depressive disorder Rule out adjustment disorder with depressed and anxious mood Mood disorder due to general medical condition.Alcohol use disorder Withdrawal symptoms are betterhe Medication Change: Yes (Ativan was decreased,Wellbutrin extended release) Medical Record Reviewed: Yes Consults ordered or reviewed: medical team consult appreciated Orthopedist consult appreciated This fiction writer discussed case with the medical team as well as orthopedic team Mental Status Examination - Cognitive Function Orientation: Person, Place, Situation, Time Memory: Intact Attention: Poor (improvement) Concentration: Poor (improvement) Association: WNL Fund of Knowledge: WNL - Mood Mood: Depressed (I feel better) - Affect Affect: Constricted (but reactive mood congruent) - Speech Speech: Appropriate - Formal Thought Process Formal Thought Process: No Impairment - Suicidal Ideation Suicidal Ideation: No - Homicidal Ideation Homicidal Ideation: No Goal/Treatment Plan - Goal/Treatment Plan Need for Continued Stay: Remain at risks for inpatient hospitalization, Severe depression anxiety, Discharge may exacerbated symptoms, Severe functional impairment Progress Toward Problem(s) and Goals/Treatment Plan: Milieu, structure, supportive therapy medical meds up to medical team will continue ativan tapering 0.5mg bid prn for alcohol withdrawal will give extended release of [id number] daily for MDD will give Trazodone prn for insomnia 50mg hs medical consult appreciated Ortho consult appreciated PT evaluation SW evaluation will monitor closely Estimated Date of D/C: 10/09/16 (we will monitor closely)
--- NOTE | 2016-10-05 08:28 | PCM.PYCHPN ---
Psychiatric Progress Note - Psychiatric Progress Note Patient seen today, length of contact: 25 minutes Patient Chief Complaint: "very hopeful and doing well" Problems Identified/Issues Discussed: I reviewed recent notes and met with patient at bedside. He is calm, cooperative and well-oriented to circumstances. Reports that he is improving on the unit and has no complaints at this time. Feels "very hopeful and doing well ". Tolerating medications and specifically denies any new discomfort or pain though does complain of cough overnight. His thought process is coherent and he isn't hallucinating. Nursing notes indicate that his behavior has been calm and controlled. He is visible, polite and attending groups. There were no behavioral issues overnight. Diagnostic Results: rule out major depressive disorder Rule out adjustment disorder with depressed and anxious mood Mood disorder due to general medical condition.Alcohol use disorder Withdrawal symptoms are betterhe Medication Change: No (ativan taper) Medical Record Reviewed: Yes Mental Status Examination - Cognitive Function Orientation: Person, Place, Situation, Time Memory: Intact Attention: Poor (improvement) Concentration: Poor (improvement) Association: WNL Fund of Knowledge: WNL - Mood Mood: Depressed ( "very hopeful and doing well") - Affect Affect: Constricted (but reactive mood congruent) - Speech Speech: Appropriate - Formal Thought Process Formal Thought Process: No Impairment - Suicidal Ideation Suicidal Ideation: No - Homicidal Ideation Homicidal Ideation: No Goal/Treatment Plan - Goal/Treatment Plan Need for Continued Stay: Remain at risks for inpatient hospitalization, Severe depression anxiety, Discharge may exacerbated symptoms, Severe functional impairment Progress Toward Problem(s) and Goals/Treatment Plan: * c/w current tx and plan * No new weekend labs * Vitals reviewed and noted below: Selected Entries 10/04/16 10/04/16 06:28 16:12 Temperature 97.8 F Pulse Rate 70 75 Respiratory 18 Rate Blood Pressure 92/53 L 127/83 Estimated Date of D/C: 10/09/16 (we will monitor closely)
[2016-10-05] MEDS: Pantoprazole 40 mg EC Tab PO SCH (08:38)
[2016-10-05] MEDS: Levothyroxine 200 MCG TAB PO SCH (08:38)
[2016-10-05] MEDS: Sucralfate 1 gm/10 ml Oral Susp UD PO SCH ×2 (09:18→16:59)
[2016-10-05] MEDS: Multivitamin With Minerals Tab PO SCH (09:19)
[2016-10-05] MEDS: buPROPion 150 mg/24 Hours XL Tab PO SCH (09:19)
[2016-10-05] MEDS: Fluticasone Nasal 50 mcg/Spray NS SCH (12:01)
[2016-10-05] MEDS: guaiFENesin DM 100 mg-10 mg/5 ml UD PO PRN ×2 (15:14→19:16)
[2016-10-06] MEDS: guaiFENesin DM 100 mg-10 mg/5 ml UD PO PRN ×4 (07:50→21:37)
[2016-10-06] MEDS: Sucralfate 1 gm/10 ml Oral Susp UD PO SCH ×2 (08:04→16:00)
[2016-10-06] MEDS: Pantoprazole 40 mg EC Tab PO SCH (08:05)
[2016-10-06] MEDS: buPROPion 150 mg/24 Hours XL Tab PO SCH (08:05)
[2016-10-06] MEDS: Multivitamin With Minerals Tab PO SCH (08:05)
[2016-10-06] MEDS: Levothyroxine 200 MCG TAB PO SCH (08:05)
[2016-10-06] MEDS: Fluticasone Nasal 50 mcg/Spray NS SCH (08:06)
--- NOTE | 2016-10-06 08:57 | PCM.PYCHPN ---
Psychiatric Progress Note - Psychiatric Progress Note Patient seen today, length of contact: 25 minutes Patient Chief Complaint: "very hopeful and doing well" Problems Identified/Issues Discussed: I reviewed recent notes and met with patient at bedside. He remains calm, cooperative and well-oriented to circumstances. Reports that he is "doing better " and has no complaints at this time. Still feels "very hopeful and doing well" . Tolerating medications and specifically denies any new discomfort or pain. Cough has improved since yesterday and patient slept much better. His thought process is coherent and he isn't hallucinating. Nursing notes indicate that his behavior has been calm and controlled. He is visible and attending groups. Appears to be doing better. There were no behavioral issues over the weekend. Diagnostic Results: rule out major depressive disorder Rule out adjustment disorder with depressed and anxious mood Mood disorder due to general medical condition.Alcohol use disorder Withdrawal symptoms are betterhe Medication Change: Yes (ativan taper) Medical Record Reviewed: Yes Mental Status Examination - Cognitive Function Orientation: Person, Place, Situation, Time Memory: Intact Attention: Poor (improvement) Concentration: Poor (improvement) Association: WNL Fund of Knowledge: WNL - Mood Mood: Depressed ( "very hopeful and doing well") - Affect Affect: Constricted (but reactive mood congruent) - Speech Speech: Appropriate - Formal Thought Process Formal Thought Process: No Impairment - Suicidal Ideation Suicidal Ideation: No - Homicidal Ideation Homicidal Ideation: No Goal/Treatment Plan - Goal/Treatment Plan Need for Continued Stay: Remain at risks for inpatient hospitalization, Severe depression anxiety, Discharge may exacerbated symptoms, Severe functional impairment Progress Toward Problem(s) and Goals/Treatment Plan: * c/w current tx and plan * On 10/06/16, Ativan was decreased to 0.5 mg po daily prn: anxiety/alcohol withdrawal * No new weekend labs * Vitals reviewed and noted below: Selected Entries 10/06/16 07:36 Temperature 98.5 F Pulse Rate 65 Respiratory 20 Rate Blood Pressure 126/84 Estimated Date of D/C: 10/09/16 (we will monitor closely)
[2016-10-07] MEDS: Levothyroxine 200 MCG TAB PO SCH (08:02)
[2016-10-07] MEDS: guaiFENesin DM 100 mg-10 mg/5 ml UD PO PRN ×4 (08:02→21:44)
[2016-10-07] MEDS: Sucralfate 1 gm/10 ml Oral Susp UD PO SCH ×2 (08:42→17:26)
[2016-10-07] MEDS: buPROPion 150 mg/24 Hours XL Tab PO SCH (08:43)
[2016-10-07] MEDS: Pantoprazole 40 mg EC Tab PO SCH (08:43)
[2016-10-07] MEDS: Multivitamin With Minerals Tab PO SCH (08:43)
[2016-10-07] MEDS: Fluticasone Nasal 50 mcg/Spray NS SCH (12:06)
--- NOTE | 2016-10-07 14:00 | PCM.PYCHPN ---
Psychiatric Progress Note - Psychiatric Progress Note Patient seen today, length of contact: 30 min Patient Chief Complaint: "I feel little better, more hopeful". Problems Identified/Issues Discussed: Suicide/ homicide prevention, past psychiatric h/o, current psychiatric symptoms , medical problems, risk/benefits and alternatives of medications, medications compliance, coping strategies, substance abuse h/o, relapse prevention, importance of follow up with psychiatrist and therapist, discharge plan. Medical Problems: possible gout, history of alcohol use disorder, no withdrawal symptoms, patient was seen by orthopedist Dr. Mars for chronic knee pain Diagnostic Results: 10/02/16 07:34 10/02/16 07:34 Lab Results 10/02/16 12:41: Fluid Type Synovial fluid, Synovial WBC 63133.0 H, Synovial RBC 4000.0 H, Synovial Neutrophils 92.0 H, Synovial Lymphocytes 8.0 H, Synov Monos/ Macrophage 0 10/02/16 12:41: Fluid Source Cancelled, Fluid Appearance Cancelled, Fluid WBC Cancelled, Fluid RBC Cancelled, Fluid Tot Cell Count Cancelled, Fluid Neutrophils Cancelled, Fluid Lymphocytes Cancelled, Fld Monocyte/Macrophag Cancelled, Fluid Comment Cancelled 10/02/16 07:34: Sodium 131 L, Potassium 4.4, Chloride 98, Carbon Dioxide 28, Anion Gap 9 L, BUN 10, Creatinine 0.9, Est GFR ( Amer) > 60, Est GFR (Non -Af Amer) > 60, Random Glucose 86, Calcium 9.0 10/02/16 07:34: WBC 4.8, RBC 3.63, Hgb 12.1 L, Hct 35.1 L, MCV 96.7, MCH 33.3, MCHC 34.5, RDW 15.6 H, Plt Count 90 L, MPV 10.5, Gran % 56.1, Lymph % (Auto) 18.6 L, [place] % (Auto) 24.1 H, Eos % (Auto) 0.6 L, Baso % (Auto) 0.6, Gran # 2.68 , Lymph # 0.9 L, [place] # 1.2 H, Eos # 0.0, Baso # 0.03 10/01/16 12:45: WBC 4.5 D, RBC 3.81, Hgb 12.5 L, Hct 36.7 L, MCV 96.3, MCH 32.8 , MCHC 34.1, RDW 15.8 H, Plt Count 76 L, MPV 10.0, Gran % 62.6, Lymph % (Auto) 13.2 L, [place] % (Auto) 23.1 H, Eos % (Auto) 0.7 L, Baso % (Auto) 0.4, Gran # 2.79 , Lymph # 0.6 L, [place] # 1.0 H, Eos # 0.0, Baso # 0.02 10/01/16 11:20: Sodium 135, Potassium 4.4, Chloride 97 L, Carbon Dioxide 31, Anion Gap 11, BUN 9, Creatinine 0.9, Est GFR ( Amer) > 60, Est GFR (Non- Af Amer) > 60, Random Glucose 90, Uric Acid 7.0, Calcium 9.2, Total Bilirubin 1.1, AST 67 H, ALT 63 H, Alkaline Phosphatase 65, Total Protein 7.0, Albumin 3.7 , Globulin 3.3, Albumin/Globulin Ratio 1.1, Triglycerides 97, Cholesterol 152, LDL Cholesterol Direct 48, HDL Cholesterol 75 H 10/01/16 11:20: RPR Nonreactive 10/01/16 11:20: Free T4 0.98, TSH 3rd Generation 11.20 H Vital Signs Temp Pulse Resp BP 10/02/16 07:22 99.2 F 81 20 139/91 H 10/01/16 15:56 77 144/85 10/01/16 07:03 98.9 F 69 20 136/95 H Lab Studies 10/02/16 10/02/16 10/02/16 Range/Units 12:41 12:41 07:34 WBC (4.5-11.0) 10^3/ul RBC (3.5-6.1) 10^6/uL Hgb (14.0-18.0) gm/dL Hct (42.0-52.0) % MCV (80.0-105.0) fL MCH (25.0-35.0) pg MCHC (31.0-37.0) g/dl RDW (11.5-14.5) % Plt Count (120.0-450.0) 10^3/uL MPV (7.0-11.0) fl Gran % (50.0-68.0) % Lymph % (Auto) (22.0-35.0) % [place] % (Auto) (1.0-6.0) % Eos % (Auto) (1.5-5.0) % Baso % (Auto) (0.0-3.0) % Gran # (1.4-6.5) Lymph # (1.2-3.4) [place] # (0.1-0.6) Eos # (0.0-0.7) Baso # (0.0-2.0) K/mm3 Sodium 131 L (132-148) mmol/L Potassium 4.4 (3.6-5.0) mmol/L Chloride 98 (95-110) mmol/L Carbon Dioxide 28 (21-33) mmol/L Anion Gap 9 L (10-20) BUN 10 (7-21) mg/dL Creatinine 0.9 (0.5-1.4) mg/dL Est GFR ( Amer) > 60 Est GFR (Non-Af Amer) > 60 Random Glucose 86 (70-110) mg/dL Calcium 9.0 (8.4-10.5) mg/dL Fluid Type Synovial fluid Fluid Source Cancelled Fluid Appearance Cancelled Fluid WBC Cancelled Fluid RBC Cancelled Fluid Tot Cell Count Cancelled Fluid Neutrophils Cancelled Fluid Lymphocytes Cancelled Fld Monocyte/Macrophag Cancelled Fluid Comment Cancelled Synovial WBC 18177.0 H (0.0-150.0) /uL Synovial RBC 4000.0 H (0.0-0.0) /uL Synovial Neutrophils 92.0 H (0-0) % Synovial Lymphocytes 8.0 H (0-0) % Synov Monos/Macrophage 0 (0-0) % RPR (NONREACTIVE) 10/02/16 10/01/16 Range/Units 07:34 11:20 WBC 4.8 (4.5-11.0) 10^3/ul RBC 3.63 (3.5-6.1) 10^6/uL Hgb 12.1 L (14.0-18.0) gm/dL Hct 35.1 L (42.0-52.0) % MCV 96.7 (80.0-105.0) fL MCH 33.3 (25.0-35.0) pg MCHC 34.5 (31.0-37.0) g/dl RDW 15.6 H (11.5-14.5) % Plt Count 90 L (120.0-450.0) 10^3/uL MPV 10.5 (7.0-11.0) fl Gran % 56.1 (50.0-68.0) % Lymph % (Auto) 18.6 L (22.0-35.0) % [place] % (Auto) 24.1 H (1.0-6.0) % Eos % (Auto) 0.6 L (1.5-5.0) % Baso % (Auto) 0.6 (0.0-3.0) % Gran # 2.68 (1.4-6.5) Lymph # 0.9 L (1.2-3.4) [place] # 1.2 H (0.1-0.6) Eos # 0.0 (0.0-0.7) Baso # 0.03 (0.0-2.0) K/mm3 Sodium (132-148) mmol/L Potassium (3.6-5.0) mmol/L Chloride (95-110) mmol/L Carbon Dioxide (21-33) mmol/L Anion Gap (10-20) BUN (7-21) mg/dL Creatinine (0.5-1.4) mg/dL Est GFR ( Amer) Est GFR (Non-Af Amer) Random Glucose (70-110) mg/dL Calcium (8.4-10.5) mg/dL Fluid Type Fluid Source Fluid Appearance Fluid WBC Fluid RBC Fluid Tot Cell Count Fluid Neutrophils Fluid Lymphocytes Fld Monocyte/Macrophag Fluid Comment Synovial WBC (0.0-150.0) /uL Synovial RBC (0.0-0.0) /uL Synovial Neutrophils (0-0) % Synovial Lymphocytes (0-0) % Synov Monos/Macrophage (0-0) % RPR Nonreactive (NONREACTIVE) Temp Pulse Resp BP Pulse Ox 97.8 F 75 18 127/83 10/04/16 06:28 10/04/16 16:12 10/04/16 06:28 10/04/16 16:12 DSM 5 Symptoms Update: shortly pt is 61yo Male with not formal psychiatric h/o, h/o alcohol use disorder, pt was sober since 1992, relapsed on 11/07/2015 after pt's , pt was keep drinking for the past year, initially was admitted to the med floor for evaluation of upper GI bleeding, pt was consulted by this ghost writer, was found to be depressed, hopeless, helpless, passive wish to be . Pt was medically stable, was transferred to the psychiatric inpatient unit for further evaluation and stabilization and meds titration. pt was seen today at his room, patient has acceptable personal hygiene, reported "knee pain much better..", pt was able to ambulate with the walker. patient denied any withdrawal symptoms, reported feeling comfortable, vital signs are stable, pt was weaned off from the ativan. Patient reported that he feels less depressed, reported that Wellbutrin started to work, his mood is "slowly improving", had fair night sleep, pt said that he does not feel safe at home and his family is coming on Friday, pt asked to be d/c then. Patient's more hopeful for the future. Patient started to go to groups, visible in the unit, but not socializing with other patients. Patient tolerates medication well, no side effects observed or reported, aims 0 , no EPS. Impression rule out major depressive disorder Rule out adjustment disorder with depressed and anxious mood Mood disorder due to general medical condition.Alcohol use disorder Withdrawal symptoms are betterhe Medication Change: Yes (ativan d/c) Medical Record Reviewed: Yes Consults ordered or reviewed: medical team consult appreciated Orthopedist consult appreciated Mental Status Examination - Cognitive Function Orientation: Person, Place, Situation, Time Memory: Intact Attention: Poor (improvement) Concentration: Poor (improvement) Association: WNL Fund of Knowledge: WNL - Mood Mood: Depressed ("I feel anxious abut discharge, I don't feel safe, my family is coming back friday, I do not want to be alone".) - Affect Affect: Constricted (but reactive mood congruent) - Speech Speech: Appropriate - Formal Thought Process Formal Thought Process: No Impairment - Suicidal Ideation Suicidal Ideation: No - Homicidal Ideation Homicidal Ideation: No Goal/Treatment Plan - Goal/Treatment Plan Need for Continued Stay: Remain at risks for inpatient hospitalization, Severe depression anxiety, Discharge may exacerbated symptoms, Severe functional impairment Progress Toward Problem(s) and Goals/Treatment Plan: Milieu, structure, supportive therapy medical meds up to medical team ativan was d/c will give extended release of [id number] daily for MDD will give Trazodone prn for insomnia 50mg hs medical consult appreciated Ortho consult appreciated PT evaluation SW evaluation will monitor closely Estimated Date of D/C: 10/09/16 (we will monitor closely)
[2016-10-08] MEDS: Levothyroxine 200 MCG TAB PO SCH (07:47)
[2016-10-08] MEDS: guaiFENesin DM 100 mg-10 mg/5 ml UD PO PRN ×3 (07:47→17:39)
[2016-10-08] MEDS: Sucralfate 1 gm/10 ml Oral Susp UD PO SCH ×2 (09:05→17:16)
[2016-10-08] MEDS: Multivitamin With Minerals Tab PO SCH (09:06)
[2016-10-08] MEDS: Pantoprazole 40 mg EC Tab PO SCH (09:06)
[2016-10-08] MEDS: buPROPion 150 mg/24 Hours XL Tab PO SCH (09:06)
[2016-10-08] MEDS: Fluticasone Nasal 50 mcg/Spray NS SCH (09:15)
[2016-10-09 07:16] VITALS: BP 126/86; PULSE 84; RESP 20; TEMP 98.7
[2016-10-09] MEDS: Levothyroxine 200 MCG TAB PO SCH (08:45)
[2016-10-09] MEDS: buPROPion 150 mg/24 Hours XL Tab PO SCH (08:45)
[2016-10-09] MEDS: Sucralfate 1 gm/10 ml Oral Susp UD PO SCH (08:45)
[2016-10-09] MEDS: Pantoprazole 40 mg EC Tab PO SCH (08:45)
[2016-10-09] MEDS: Multivitamin With Minerals Tab PO SCH (08:45)
[2016-10-09] MEDS: Fluticasone Nasal 50 mcg/Spray NS SCH (08:46)
--- NOTE | 2016-10-09 11:44 | PCM.PYCHDC ---
Mental Status Examination - Mental Status Examination Orientation: Person, Place, Situation, Time Memory: Intact Mood: Neutral Affect: Broad (and mood congruent) Speech: Appropriate Attention: WNL Concentration: WNL Association: WNL Fund of Knowledge: WNL Formal Thought Process: No Impairment Description of patient's judgement and insight: Pt has improved insight into mental and medical illness, pt was compliant with medications and unit rules and regulations, pt was going to groups, was calm, cooperative, socially appropriate, no behavioral incidents, no agitation, no aggression. Psychotic Thoughts and Behaviors: Pt denied v/a/t hallucinations, denied paranoid ideations, pt does not appear to be psychotic, and thought process is goal directed. Suicidal Ideation: No Current Homicidal Ideation?: No Plan: pt adamantly denied thoughts of harming self or others denied intent or plan. Discharge Summary - Discharge Note Reason for Hospitalization: pt was transferred from the med floor where he was admitted for hematemesis, for evaluation and stabilization of depressive symptoms, passive wish to be , inability to function. Psychiatric History (includes Medical, Family, Personal Hx): see HPI Laboratory Data: 10/02/16 07:34 10/02/16 07:34 Lab Results 10/02/16 12:41: Fluid Type Synovial fluid, Synovial WBC 32765.0 H, Synovial RBC 4000.0 H, Synovial Neutrophils 92.0 H, Synovial Lymphocytes 8.0 H, Synov Monos/ Macrophage 0 10/02/16 12:41: Fluid Source Cancelled, Fluid Appearance Cancelled, Fluid WBC Cancelled, Fluid RBC Cancelled, Fluid Tot Cell Count Cancelled, Fluid Neutrophils Cancelled, Fluid Lymphocytes Cancelled, Fld Monocyte/Macrophag Cancelled, Fluid Comment Cancelled 10/02/16 07:34: Sodium 131 L, Potassium 4.4, Chloride 98, Carbon Dioxide 28, Anion Gap 9 L, BUN 10, Creatinine 0.9, Est GFR ( Amer) > 60, Est GFR (Non -Af Amer) > 60, Random Glucose 86, Calcium 9.0 10/02/16 07:34: WBC 4.8, RBC 3.63, Hgb 12.1 L, Hct 35.1 L, MCV 96.7, MCH 33.3, MCHC 34.5, RDW 15.6 H, Plt Count 90 L, MPV 10.5, Gran % 56.1, Lymph % (Auto) 18.6 L, [place] % (Auto) 24.1 H, Eos % (Auto) 0.6 L, Baso % (Auto) 0.6, Gran # 2.68 , Lymph # 0.9 L, [place] # 1.2 H, Eos # 0.0, Baso # 0.03 10/01/16 12:45: WBC 4.5 D, RBC 3.81, Hgb 12.5 L, Hct 36.7 L, MCV 96.3, MCH 32.8 , MCHC 34.1, RDW 15.8 H, Plt Count 76 L, MPV 10.0, Gran % 62.6, Lymph % (Auto) 13.2 L, [place] % (Auto) 23.1 H, Eos % (Auto) 0.7 L, Baso % (Auto) 0.4, Gran # 2.79 , Lymph # 0.6 L, [place] # 1.0 H, Eos # 0.0, Baso # 0.02 10/01/16 11:20: Sodium 135, Potassium 4.4, Chloride 97 L, Carbon Dioxide 31, Anion Gap 11, BUN 9, Creatinine 0.9, Est GFR ( Amer) > 60, Est GFR (Non- Af Amer) > 60, Random Glucose 90, Uric Acid 7.0, Calcium 9.2, Total Bilirubin 1.1, AST 67 H, ALT 63 H, Alkaline Phosphatase 65, Total Protein 7.0, Albumin 3.7 , Globulin 3.3, Albumin/Globulin Ratio 1.1, Triglycerides 97, Cholesterol 152, LDL Cholesterol Direct 48, HDL Cholesterol 75 H 10/01/16 11:20: RPR Nonreactive 10/01/16 11:20: Free T4 0.98, TSH 3rd Generation 11.20 H Vital Signs Temp Pulse Resp BP 10/09/16 07:14 98.7 F 84 20 126/86 10/08/16 15:47 68 146/97 H 10/08/16 06:48 98.5 F 71 18 110/72 10/07/16 16:23 66 145/96 H 10/07/16 07:22 98.0 F 65 20 129/85 10/06/16 21:04 135/94 H 10/06/16 07:36 98.5 F 65 20 126/84 10/05/16 06:37 98.4 F 73 19 117/78 10/04/16 16:12 75 127/83 10/04/16 06:28 97.8 F 70 18 92/53 L 10/03/16 17:19 76 18 125/82 10/03/16 07:32 97.9 F 68 20 122/82 10/02/16 16:37 83 18 123/84 10/02/16 07:22 99.2 F 81 20 139/91 H 10/01/16 15:56 77 144/85 10/01/16 07:03 98.9 F 69 20 136/95 H Laboratory Results WBC 4.8 10^3/ul (4.5-11.0) 10/02/16 07:34 RBC 3.63 10^6/uL (3.5-6.1) 10/02/16 07:34 Hgb 12.1 gm/dL (14.0-18.0) L 10/02/16 07:34 Hct 35.1 % (42.0-52.0) L 10/02/16 07:34 MCV 96.7 fL (80.0-105.0) 10/02/16 07:34 MCH 33.3 pg (25.0-35.0) 10/02/16 07:34 MCHC 34.5 g/dl (31.0-37.0) 10/02/16 07:34 RDW 15.6 % (11.5-14.5) H 10/02/16 07:34 Plt Count 90 10^3/uL (120.0-450.0) L 10/02/16 07:34 MPV 10.5 fl (7.0-11.0) 10/02/16 07:34 Gran % 56.1 % (50.0-68.0) 10/02/16 07:34 Lymph % (Auto) 18.6 % (22.0-35.0) L 10/02/16 07:34 [place] % (Auto) 24.1 % (1.0-6.0) H 10/02/16 07:34 Eos % (Auto) 0.6 % (1.5-5.0) L 10/02/16 07:34 Baso % (Auto) 0.6 % (0.0-3.0) 10/02/16 07:34 Gran # 2.68 (1.4-6.5) 10/02/16 07:34 Lymph # 0.9 (1.2-3.4) L 10/02/16 07:34 [place] # 1.2 (0.1-0.6) H 10/02/16 07:34 Eos # 0.0 (0.0-0.7) 10/02/16 07:34 Baso # 0.03 K/mm3 (0.0-2.0) 10/02/16 07:34 Sodium 131 mmol/L (132-148) L 10/02/16 07:34 Potassium 4.4 mmol/L (3.6-5.0) 10/02/16 07:34 Chloride 98 mmol/L (95-110) 10/02/16 07:34 Carbon Dioxide 28 mmol/L (21-33) 10/02/16 07:34 Anion Gap 9 (10-20) L 10/02/16 07:34 BUN 10 mg/dL (7-21) 10/02/16 07:34 Creatinine 0.9 mg/dL (0.5-1.4) 10/02/16 07:34 Est GFR ( Amer) > 60 10/02/16 07:34 Est GFR (Non-Af Amer) > 60 10/02/16 07:34 Random Glucose 86 mg/dL (70-110) 10/02/16 07:34 Uric Acid 7.0 mg/dL (3.5-8.5) 10/01/16 11:20 Calcium 9.0 mg/dL (8.4-10.5) 10/02/16 07:34 Total Bilirubin 1.1 mg/dL (0.2-1.3) 10/01/16 11:20 AST 67 U/L (15-59) H 10/01/16 11:20 ALT 63 U/L (7-56) H 10/01/16 11:20 Alkaline Phosphatase 65 U/L (38-133) 10/01/16 11:20 Total Protein 7.0 g/dL (5.8-8.3) 10/01/16 11:20 Albumin 3.7 g/dL (3.0-4.8) 10/01/16 11:20 Globulin 3.3 gm/dL 10/01/16 11:20 Albumin/Globulin Ratio 1.1 (1.1-1.8) 10/01/16 11:20 Triglycerides 97 mg/dL (35-160) 10/01/16 11:20 Cholesterol 152 mg/dL (130-200) 10/01/16 11:20 LDL Cholesterol Direct 48 mg/dL (0-129) 10/01/16 11:20 HDL Cholesterol 75 mg/dL (29-60) H 10/01/16 11:20 Free T4 0.98 ng/dL (0.78-2.19) 10/01/16 11:20 TSH 3rd Generation 11.20 mIU/mL (0.46-4.68) H 10/01/16 11:20 Fluid Type Synovial fluid 10/02/16 12:41 Fluid Source Cancelled 10/02/16 12:41 Fluid Appearance Cancelled 10/02/16 12:41 Fluid WBC Cancelled 10/02/16 12:41 Fluid RBC Cancelled 10/02/16 12:41 Fluid Tot Cell Count Cancelled 10/02/16 12:41 Fluid Neutrophils Cancelled 10/02/16 12:41 Fluid Lymphocytes Cancelled 10/02/16 12:41 Fld Monocyte/Macrophag Cancelled 10/02/16 12:41 Fluid Comment Cancelled 10/02/16 12:41 Synovial WBC 30758.0 /uL (0.0-150.0) H 10/02/16 12:41 Synovial RBC 4000.0 /uL (0.0-0.0) H 10/02/16 12:41 Synovial Neutrophils 92.0 % (0-0) H 10/02/16 12:41 Synovial Lymphocytes 8.0 % (0-0) H 10/02/16 12:41 Synov Monos/Macrophage 0 % (0-0) 10/02/16 12:41 RPR Nonreactive (NONREACTIVE) 10/01/16 11:20 Consultations:: List each consultation separately and include: 1. Reason for request. 2. Findings. 3. Follow-up Consultations: medical team consult appreciated Orthopedist consult appreciated see notes for more detailed information Summary of Hospital Course include:: 1. Description of specific treatment plan utilized for patients during their course of treatmen. 2. Summarize the time- course for resolution of acute symptoms and/or regressed behaviors. 3. Describe issues identified and worked on during hospitalization. 4. Describe medication utilized. 5. Describe medical problems identified and treated. 6. Reassessment of suicide risk Summary of Hospital Course: shortly pt is 61yo Male with not formal psychiatric h/o, h/o alcohol use disorder, pt was sober since 1992, relapsed on 11/07/2015 after pt's , pt was keep drinking for the past year, initially was admitted to the med floor for evaluation of upper GI bleeding, pt was consulted by this instructional writer, was found to be depressed, hopeless, helpless, passive wish to be . Pt was medically stable, was transferred to the psychiatric inpatient unit for further evaluation and stabilization and meds titration. initially pt presented to be depressed, good ADLs, fair hygiene. Pt reported being depressed for the past year, despite the fact that he is in relationship with GF, pt was feeling "lonely, nothing was making me feel happy" . Pt said that he was feeling hopeless and helpless, passive wish to be , pt also reported "I would not mind to be killed by a car, but I will be not looking for it myself". pt said he was trying to deal with stress by drinking alcohol, pt was drinking 1pint of vodka and 2cans of 24oz of beer daily, pt currently is comfortable, no signs of withdrawals. 10/01/16 12:45 10/01/16 11:20 Lab Results 10/01/16 12:45: WBC 4.5 D, RBC 3.81, Hgb 12.5 L, Hct 36.7 L, MCV 96.3, MCH 32.8 , MCHC 34.1, RDW 15.8 H, Plt Count 76 L, MPV 10.0, Gran % 62.6, Lymph % (Auto) 13.2 L, [place] % (Auto) 23.1 H, Eos % (Auto) 0.7 L, Baso % (Auto) 0.4, Gran # 2.79 , Lymph # 0.6 L, [place] # 1.0 H, Eos # 0.0, Baso # 0.02 10/01/16 11:20: Sodium 135, Potassium 4.4, Chloride 97 L, Carbon Dioxide 31, Anion Gap 11, BUN 9, Creatinine 0.9, Est GFR ( Amer) > 60, Est GFR (Non- Af Amer) > 60, Random Glucose 90, Uric Acid 7.0, Calcium 9.2, Total Bilirubin 1.1, AST 67 H, ALT 63 H, Alkaline Phosphatase 65, Total Protein 7.0, Albumin 3.7 , Globulin 3.3, Albumin/Globulin Ratio 1.1, Triglycerides 97, Cholesterol 152, LDL Cholesterol Direct 48, HDL Cholesterol 75 H 10/01/16 11:20: Free T4 0.98, TSH 3rd Generation 11.20 H Vital Signs Temp Pulse Resp BP 10/01/16 07:03 98.9 F 69 20 136/95 H over the course of this hospitalization patient was stabilized on the following medications: ativan was tapered off for alcohol withdrawal symptoms Wellbutrin was initiated for major depressive disorder, was titrated up to 150 daily extended release Trazodone 50mg hs for depression and insomnia Patient was continued on all of his medications for medical issues please see medical team notes for more detailed information. Patient was seen by orthopedist, had knee aspiration fluid, most likely has diagnosis of gout. Please see orthopedist note for more detailed information overall patient improved significantly. Over the course of this hospitalization pt was attending groups, pt also had medication management, had therapeutic milieu. Overall pt improved significantly, pt's affect became brighter, pt was less depressed, has realistic future oriented plans, pt also does not appear to be psychotic, or anxious, pt was socially appropriate, no behavioral issues, pts insight improved as well and soon pt deemed to be ready for discharge. - Diagnosis (1) MDD (major depressive disorder) Current Visit: Yes Status: Acute (2) Adjustment disorder with depressed mood Current Visit: Yes Status: Acute (3) Alcohol use disorder Current Visit: Yes Status: Acute - Final Diagnosis (DSM 5) Condition upon Discharge: GOOD Disposition: HOME/ ROUTINE Follow-up Treatment Plan: At the time of the discharge pt denied been depressed, denied thoughts of harming self or others, denied psychotic symptoms, and pt does not appeared to be psychotic, denied been anxious, was considered to pose no threat to self or others, will be following up at ., information about follow up appointment, time and address provided to the pt, it is patient responsibility to follow up with outpatient clinic, PMD as well as specialists (see SW note for more detailed information). In case pt will need to obtain results of studies pending at discharge pt was provided with contact information of Psychiatric Inpatient unit [phone] as well as Medical Record Department [phone]. pt does not smoke Counseling about alcohol cessation provided patient does not want to be on naltrexone AA meetings treatment program information was provided by the [facility] pt was provided with prescriptions for all of medications (please see medication reconciliation form) Pt was educated about safety plan in case of worsening of symptoms or in case of suicidal or homicidal ideation call 911 or go to the nearest ER, also was educated to take meds as prescribed and stay away from drugs, pt verbalized understanding. Prescriptions/Medication Reconciliation: Apixaban [Eliquis] 2.5 mg PO BID #14 tab Atorvastatin [Lipitor] 20 mg PO HS #7 tab buPROPion XL [Wellbutrin XL] 150 mg PO DAILY #14 t24 Colchicine [Mitigare] 0.6 mg PO DAILY #7 capsule Docusate [Colace] 100 mg PO BID #14 cap Fluticasone Nasal [Flonase] 1 actuation NS DAILY #1 spr Folic Acid 1 mg PO DAILY #14 tab guaiFENesin/Dextromethorphan [Robitussin DM] 5 ml PO Q4H PRN #1 PRN Reason: Cough Levothyroxine [Synthroid] 200 mcg PO ACB #7 tab Multimineral/Multivitamin [Therapeutic-M Tab] 1 tab PO DAILY #14 tab Pantoprazole [Protonix EC Tab] 40 mg PO ACB #7 ect Sucralfate [Carafate Oral Susp] 1 gm PO BID #1 Thiamine [Vitamin B1 Tab] 100 mg PO DAILY #14 tab traMADol [Ultram] 25 mg PO Q6H PRN #14 tab PRN Reason: Pain, Moderate (4-7) traZODone [Desyrel] 50 mg PO HS PRN #14 tab PRN Reason: Insomnia, depression - Smoking Cessation Smoking Cessation Medication prescribed: No Reason for not providing: patient does not smoke - Antipsychotic Medications Pt discharged on 2 or more routine antipsychotic medications: No
== END 2016-10-09 12:48 | disposition home or self-care (01) | DRG 881 ==
LOC: PSYC 18:40
PROVIDERS: ADMIT Psychiatry & Neurology Psychiatry; ATTEND Psychiatry & Neurology Psychiatry
PROC: GZ3ZZZZ Medication Management (ICD-10-PCS; principal; 2016-09-30)
PROC: 3E0U33Z Introduction of Anti-inflammatory into Joints, Percutaneous Approach (ICD-10-PCS; 2016-10-02)
PROC: 3E0U3BZ Introduction of Anesthetic Agent into Joints, Percutaneous Approach (ICD-10-PCS; 2016-10-02)
DX: F32.9 Major depressive disorder, single episode, unspecified (principal); D69.59 Other secondary thrombocytopenia; F10.239 Alcohol dependence with withdrawal, unspecified; F43.21 Adjustment disorder with depressed mood; I10 Essential (primary) hypertension; G47.00 Insomnia, unspecified; J44.9 Chronic obstructive pulmonary disease, unspecified; E78.5 Hyperlipidemia, unspecified; E03.9 Hypothyroidism, unspecified; R73.03 Prediabetes; I71.4 Abdominal aortic aneurysm, without rupture; D64.9 Anemia, unspecified; M17.11 Unilateral primary osteoarthritis, right knee; J30.9 Allergic rhinitis, unspecified; Z86.718 Personal history of other venous thrombosis and embolism; Z86.711 Personal history of pulmonary embolism; Z79.01 Long term (current) use of anticoagulants; Z91.81 History of falling; Z87.891 Personal history of nicotine dependence

== ENCOUNTER 2018-01-27 12:39 | Observation (INO) | payer BC, OTHER ==
[2018-01-27 12:45] VITALS: BMI 30.8
--- NOTE | 2018-01-27 13:11 | ED PDOC ---
Arrival/HPI - General Chief Complaint: Shortness Of Breath Time Seen by Provider: 01/27/18 12:58 Historian: Patient - History of Present Illness Narrative History of Present Illness (Text): 01/27/18 13:10 A 62 year old male recovered alcoholic, whose past medical history includes hypertension, hyperlipidemia and gout, presents to the emergency department complaining of shortness of breath since around noon earlier today. Patient reports experiencing associated heart palpitations and constipation. Patient notes he is 16 months sober and has blood clots in both of his lungs and left leg for which he is on eliquis. He denies any history of AFIB. Patient denies any fever, chills, chest pain, diarrhea, nausea, vomiting, urinary symptoms, back pain, neck pain, headache, dizziness, or any other complaints. PMD: Dr. Ivey 01/27/18 19:32 Time/Duration: 1-3 hours Symptom Onset: Gradual Symptom Course: Unchanged Activities at Onset: Light Context: Home Past Medical History - Provider Review Nursing Documentation Reviewed: Yes - Past History Past History: Non-Contributing - Infectious Disease Hx of Infectious Diseases: None - Cardiac Hx Hypertension: Yes - Pulmonary Hx Chronic Obstructive Pulmonary Disease (COPD): Yes - Neurological HX Cerebrovascular Accident: No Hx Seizures: No - HEENT Hx HEENT Disorder: Yes (eyeglasees) - Endocrine/Metabolic Hx Hypothyroidism: Yes - Hematological/Oncological Hx Cancer: No Other/Comment: e coli staph infections pt does not know where tx by pmd 2016 - Integumentary Other/Comment: multiple tatoos, r great toe 0.5 round dry brown wound,rle multiple bruises dry scab to r knee surrounded by red skin, slight swelling both knees - Musculoskeletal/Rheumatological Hx Falls: Yes - Gastrointestinal Hx Gastrointestinal Disorders: Yes (tarry stools x 5 days) - Genitourinary/Gynecological Hx Prostate Problems: Yes Hx Sexually Transmitted Diseases: No - Psychiatric Hx Psychophysiologic Disorder: Yes (past attempted suicide) Hx Depression: Yes Hx Substance Use: Yes Other/Comment: Patient stated that he was dignosed with a psychiatric disorder when he was actively addicted to alcohol but cannot rember what he was dignosed with. pt quit drinking 01/05/1993, but started drinking when 1 yr ago, quit smoking 5 yrs uses e cigarettes, 1992 pt tried to hang himself. "I wanted to stop drinking", credited his for helping him to stop, today does not have a suicide plan, stated " I don't care if I live or ", alcohol abuse drinks everyday - Surgical History Other/Comment: Bowel Resection due to abcess, L lung lobectomy pt had pneumonia and fluid solidifies to wall of left lung it was removed, procedure in dr ahuja' s office cystoscope - Anesthesia Hx Anesthesia: Yes Hx Anesthesia Reactions: No Hx Malignant Hyperthermia: No Family/Social History - Physician Review Nursing Documentation Reviewed: Yes Family/Social History: Unknown Family HX Smoking Status: Current Some Days Smoker Hx Alcohol Use: Yes Hx Substance Use: Yes Allergies/Home Meds Allergies/Adverse Reactions: Allergies No Known Allergies Allergy (Verified 01/27/18 15:59) Review of Systems - Physician Review All systems were reviewed & negative as marked: Yes - Review of Systems Constitutional: absent: Fevers, Night Sweats Respiratory: SOB. absent: Cough Cardiovascular: Palpitations. absent: Chest Pain Gastrointestinal: absent: Diarrhea, Nausea Genitourinary Male: Other (+slight constipation). absent: Dysuria, Frequency, Hematuria, Urinary Output Changes Musculoskeletal: absent: Back Pain, Neck Pain Neurological: absent: Headache, Dizziness Physical Exam Vital Signs Reviewed: Yes Vital Signs Temp Pulse Resp BP Pulse Ox 01/27/18 15:03 98.4 F 63 20 114/76 96 01/27/18 14:40 18 01/27/18 13:25 127 H 139/63 01/27/18 13:24 127 H 139/63 01/27/18 12:44 98.6 F 126 H 20 139/63 97 Temperature: Afebrile Blood Pressure: Normal Pulse: Tachycardic Respiratory Rate: Normal Appearance: Positive for: Well-Appearing, Non-Toxic, Comfortable Pain Distress: None Mental Status: Positive for: Alert and Oriented X 3 - Systems Exam Head: Present: Atraumatic, Normocephalic Pupils: Present: PERRL Extroacular Muscles: Present: EOMI Conjunctiva: Present: Normal Mouth: Present: Moist Mucous Membranes Neck: Present: Normal Range of Motion Respiratory/Chest: Present: Clear to Auscultation, Good Air Exchange. No: Respiratory Distress, Accessory Muscle Use Cardiovascular: Present: Normal S1, S2, Irregular Rhythm (+irregular irregular rhythm), Tachycardic. No: Murmurs Abdomen: No: Tenderness, Distention, Peritoneal Signs Back: Present: Normal Inspection Upper Extremity: Present: Normal Inspection. No: Cyanosis, Edema Lower Extremity: Present: Normal Inspection. No: Edema Neurological: Present: GCS=15, CN II-XII Intact, Speech Normal Skin: Present: Warm, Dry, Normal Color. No: Rashes Psychiatric: Present: Alert, Oriented x 3, Normal Insight, Normal Concentration Medical Decision Making ED Course and Treatment: 01/27/18 13:15 Impression: A 62 year old male presents to the emergency department complaining of shortness of breath. Given Afib w/ RVR, afebrile and pt missing his metoprolol dosage this AM (25mg BID) will give AM dose and 5mg IVP toprolol. Pt notes taking all his meds today except his metoprolol. Plan: -- EKG -- CMP -- Magnesium -- Thyroid Stimulating hormone -- Troponin I -- CBC -- Chest X-ray -- Reassess and disposition Prior Visits: Notes and results from previous visits were reviewed. Progress Notes: 01/27/18 13:[address] Ivey, who is aware patient is in the emergency department and recommends hospitalist and requests Dr. Daniel, cardiology, for consult. Patient's heart rate is currently 75 bpm at normal sinus rhythm. 01/27/18 13:[address] Daniel, cardiology, who is aware of case, reccomends 50 of metoprolol tonight and no ASA given eliqus continued. 01/27/18 14:02 Dictator: Vamsi Mays MD Procedure: Chest X-ray Impression: Small right pleural effusion 01/27/18 14:[address] Umana, hospitalist, who is aware and accepts with emergency department management plan to admit patient. - Lab Interpretations Lab Results: 01/27/18 13:00 01/27/18 13:00 Lab Results 01/27/18 13:00: NT-Pro-B Natriuret Pep 104 01/27/18 13:00: TSH 3rd Generation 3.36 01/27/18 13:00: Sodium 142, Potassium 3.8, Chloride 105, Carbon Dioxide 25, Anion Gap 15, BUN 11, Creatinine 0.9, Est GFR ( Amer) > 60, Est GFR (Non- Af Amer) > 60, Random Glucose 110, Calcium 9.8, Magnesium 1.9, Total Bilirubin 0.8, AST 41, ALT 42, Alkaline Phosphatase 92, Troponin I < 0.01, Total Protein 7.2, Albumin 4.0, Globulin 3.2, Albumin/Globulin Ratio 1.3 01/27/18 13:00: WBC 5.9 D, RBC 5.00, Hgb 16.4, Hct 45.4, MCV 90.8, MCH 32.8, MCHC 36.1, RDW 12.9, Plt Count 127, MPV 9.7, Gran % 64.1, Lymph % (Auto) 16.3 L , Haakon % (Auto) 15.5 H, Eos % (Auto) 3.4, Baso % (Auto) 0.7, Gran # 3.81, Lymph # (Auto) 1.0 L, Haakon # (Auto) 0.9 H, Eos # (Auto) 0.2, Baso # (Auto) 0.04 - RAD Interpretation Radiology Orders: 01/27/18 13:13 CHEST PORTABLE [RAD] Stat - Medication Orders Current Medication Orders: Apixaban (Eliquis) 2.5 mg PO BID [facility] PRN Reason: Protocol Last Admin: 01/27/18 17:53 Dose: 2.5 mg Atorvastatin Calcium (Lipitor) 20 mg PO DIN [facility] Last Admin: 01/27/18 17:53 Dose: 20 mg Bupropion HCl (Wellbutrin Xl) 150 mg PO DAILY [facility] Famotidine (Pepcid) 20 mg PO 1000,2200 [facility] Levothyroxine Sodium (Synthroid) 175 mcg PO MOTUWETHFR@0600 [facility] Metoprolol Tartrate (Lopressor) 50 mg PO BID [facility] Last Admin: 01/27/18 17:54 Dose: 50 mg MAR Pulse and Blood Pressure Document 01/27/18 17:54 (Rec: 01/27/18 17:55 [id number]) Pulse Pulse Rate (60-90) 70 Blood Pressure Blood Pressure (100/60-150/90) 115/67 Discontinued Medications Metoprolol Tartrate (Lopressor) 25 mg PO STAT STA Stop: 01/27/18 13:14 Last Admin: 01/27/18 13:24 Dose: 25 mg MAR Pulse and Blood Pressure Document 01/27/18 13:24 SRE (Rec: 01/27/18 13:25 SRE [id number]) Pulse Pulse Rate (60-90) 127 Blood Pressure Blood Pressure (100/60-150/90) 139/63 Metoprolol Tartrate (Lopressor) 5 mg IVP STAT STA Stop: 01/27/18 13:18 Last Admin: 01/27/18 13:25 Dose: 5 mg IVP Administration Document 01/27/18 13:25 SRE (Rec: 01/27/18 13:25 [id number] [id number]) Charges for Administration # of IVP Administrations 1 MAR Pulse and Blood Pressure Document 01/27/18 13:25 SRE (Rec: 01/27/18 13:25 SRE [id number]) Pulse Pulse Rate (60-90) 127 Blood Pressure Blood Pressure (100/60-150/90) 139/63 Metoprolol Tartrate (Lopressor) 50 mg PO BID [facility] Statement The provider has reviewed the documentation as recorded by the Adelita Joya All medical record entries made by the Adelita were at my direction and personally dictated by me. I have reviewed the chart and agree that the record accurately reflects my personal performance of the history, physical exam, medical decision making, and the department course for this patient. I have also personally directed, reviewed, and agree with the discharge instructions and disposition. Disposition/Present on Arrival - Present on Arrival Any Indicators Present on Arrival: No History of DVT/PE: No History of Uncontrolled Diabetes: No Urinary Catheter: No History of Decub. Ulcer: No History Surgical Site Infection Following: None - Disposition Have Diagnosis and Disposition been Completed?: Yes Diagnosis: Afib Disposition: HOSPITALIZED Disposition Time: 14:28 Patient Problems: Current Active Problems Problem Status Onset Afib Acute Condition: GOOD
[2018-01-27] MEDS ORDERED: Metoprolol 1 mg/ml Inj IVP STA (13:17)
[2018-01-27 13:27] LABS: BASO # 0.04 K/mm3 (0.0-2.0); BASO % 0.7 % (0.0-3.0); EOS # 0.2 (0.0-0.7); EOS % 3.4 % (1.5-5.0); GRAN # 3.81 (1.4-6.5); GRAN % 64.1 % (50.0-68.0); HEMOGLOBIN 16.4 g/dL (14.0-18.0); LYMPH % 16.3 % (22.0-35.0); MEAN CELL VOLUME 90.8 fl (80.0-105.0); MEAN CORPUSCULAR HEMOGLOBIN 32.8 pg (25.0-35.0); MEAN CORPUSCULAR HGB CONC 36.1 g/dl (31.0-37.0); MEAN PLATELET VOLUME 9.7 fl (7.0-11.0); MONO # 0.9 (0.1-0.6); MONO % 15.5 % (1.0-6.0); RED CELL DISTRIBUTION WIDTH 12.9 % (11.5-14.5); WHITE BLOOD COUNT 5.9 10^3/ul (4.5-11.0)
[2018-01-27 13:48] LABS: ALB/GLOB RATIO 1.3 (1.1-1.8)
[2018-01-27 13:52] LABS: ALT/SGPT 42 U/L (7-56); AST/SGOT 41 U/L (17-59); BLOOD UREA NITROGEN 11 mg/dL (7-21); CALCIUM 9.8 mg/dL (8.4-10.5); GFR NON-AFRICAN AMERICAN > 60
--- NOTE | 2018-01-27 13:56 | RAD ---
Date of service: 01/27/2018 HISTORY: sob COMPARISON: 09/25/2016 FINDINGS: LUNGS: No active pulmonary disease. PLEURA: Small right pleural effusion CARDIOVASCULAR: Normal. OSSEOUS STRUCTURES: No significant abnormalities. VISUALIZED UPPER ABDOMEN: Normal. OTHER FINDINGS: None. IMPRESSION: Small right pleural effusion
[2018-01-27 13:59] LABS: TROPONIN I < 0.01 ng/mL
--- NOTE | 2018-01-27 16:12 | CP.PCM.HP ---
<Fetlon Mendoza - Last Filed: 01/27/18 19:54> History of Present Illness - History of Present Illness History of Present Illness: Internal Medicine History and Physical Note for Dr. Cynthia Umana 62 year old male, past medical history of PE and left leg DVT (2016) on Eliquis , HTN on Metoprolol, Hyperlipidemia, arthritis, gout, tobacco abuse, and alcohol abuse, presents to the emergency room with shortness of breath. Patient was seen and evaluated in the ED. Patient states he was at an AA meeting at 11: 30, he proceeded to eat a donut and drink some coffee after which he began to feel lightheaded, short of breath, and dizzy. He also admits to a mild headache that has since resolved. He had his friend bring him to the ED. Patient states he did not take his morning dose of Metoprolol today because he had run out of the medication. Upon arrival, patient's EKG showed atrial fibrillation with RVR with a heart rate in the 160s. He was given Metoprolol 25mg and Metoprolol 5mg IV push which converted him back to normal sinus rhythm. Patient has never had atrial fibrillation before. He does admit to palpitations that he has been experiencing lately and noticed it has become more frequent. These episodes last for a few seconds and resolve. Patient denies any chest pain, chest pain with exertion, dyspnea, dyspnea with exertion. He is able to walk over a mile without difficulties. He admits to a cough productive of clear sputum as well. Patient was recently referred to general operations manager Dr. Daniel by his primary medical doctor for a stress test which patient states was normal. He is scheduled for an outpatient colonoscopy in 1 week. PMH: PE and left leg DVT (2016) on Eliquis, HTN, HLD, arthritis, gout, tobacco abuse, alcohol abuse PSH: Lung resection secondary to severe pneumonia over 30 years ago, Bowel resection secondary to an abscess, Tonsillectomy, Bilateral knee arthroscopic repairs FH: Mother had lung cancer and stroke now . Father after a stroke. SH: Patient smoked for 49 years now quit and continues to Vape. Patient had been sober for 23 years but relapsed and is now been sober for 16 months and continues to go to AA meetings daily. Patient has tried heroine and marijuana in the past but no longer abuses any illicit drugs. Patient is not currently working. ALL: Paxil gave him a rash in the past Meds: Metoprolol 25mg BID, Eliquis 2.5mg, Trazadone 150mg QHS, Lipitor 20mg QD, Synthroid 175mcg QD M-F, Buproprion 150mg QD PMD: Dr. Van Ivey Computer Game Programmer: Dr. Daniel Heme/Onc: Dr. Casiano Present on Admission - Present on Admission Any Indicators Present on Admission: No Review of Systems - Constitutional Constitutional: absent: Chills, Fever, Headache, Weakness - EENT Eyes: absent: Blurred Vision, Change in Vision Ears: absent: Ear Discharge, Ear Pain Nose/Mouth/Throat: Post Nasal Drip. absent: Nasal Congestion, Nasal Discharge - Cardiovascular Cardiovascular: Palpitations. absent: Chest Pain, Chest Pain at Rest, Chest Pain with Activity, Diaphoresis, Dyspnea, Dyspnea on Exertion, Leg Edema - Respiratory Respiratory: absent: Cough, Dyspnea, Chest Congestion - Gastrointestinal Gastrointestinal: absent: Abdominal Pain, Nausea, Vomiting - Genitourinary Genitourinary: absent: Difficulty Urinating, Dysuria - Musculoskeletal Musculoskeletal: absent: Back Pain, Neck Pain - Integumentary Integumentary: absent: Bleeding Lesions, Changing Lesions - Neurological Neurological: absent: Confusion, Dizziness, Numbness, Headaches - Psychiatric Psychiatric: absent: Anxiety, Confusion Past Patient History - Infectious Disease Hx of Infectious Diseases: None - Past Social History Smoking Status: Current Some Days Smoker - CARDIAC Hx Hypertension: Yes - PULMONARY Hx Chronic Obstructive Pulmonary Disease (COPD): Yes - NEUROLOGICAL HX Cerebrovascular Accident: No Hx Seizures: No - HEENT Hx HEENT Problems: Yes (eyeglasees) - ENDOCRINE/METABOLIC Hx Hypothyroidism: Yes - HEMATOLOGICAL/ONCOLOGICAL Hx Cancer: No Other/Comment: e coli staph infections pt does not know where tx by pmd 2016 - INTEGUMENTARY Other/Comment: multiple tatoos, r great toe 0.5 round dry brown wound,rle multiple bruises dry scab to r knee surrounded by red skin, slight swelling both knees - MUSCULOSKELETAL/RHEUMATOLOGICAL Hx Falls: Yes - GASTROINTESTINAL Hx Gastrointestinal Disorders: Yes (tarry stools x 5 days) - GENITOURINARY/GYNECOLOGICAL Hx Prostate Problems: Yes Hx Sexually Transmitted Disorders: No - PSYCHIATRIC Hx Psychophysiologic Disorder: Yes (past attempted suicide) Hx Depression: Yes Hx Substance Use: Yes Other/Comment: Patient stated that he was dignosed with a psychiatric disorder when he was actively addicted to alcohol but cannot rember what he was dignosed with. pt quit drinking 01/05/1993, but started drinking when 1 yr ago, quit smoking 5 yrs uses e cigarettes, 1992 pt tried to hang himself. "I wanted to stop drinking", credited his for helping him to stop, today does not have a suicide plan, stated " I don't care if I live or ", alcohol abuse drinks everyday - SURGICAL HISTORY Other/Comment: Bowel Resection due to abcess, L lung lobectomy pt had pneumonia and fluid solidifies to wall of left lung it was removed, procedure in dr ahuja' s office cystoscope - ANESTHESIA Hx Anesthesia: Yes Hx Anesthesia Reactions: No Hx Malignant Hyperthermia: No Meds Allergies/Adverse Reactions: Allergies Allergy/AdvReac Type Severity Reaction Status Date / Time No Known Allergies Allergy Verified 01/27/18 15:59 Physical Exam - Constitutional Appears: Well, Non-toxic, No Acute Distress - Head Exam Head Exam: ATRAUMATIC, NORMAL INSPECTION, NORMOCEPHALIC - Eye Exam Eye Exam: EOMI, PERRL - ENT Exam ENT Exam: Mucous Membranes Dry - Neck Exam Neck exam: Positive for: Full Rom. Negative for: Lymphadenopathy, Tenderness, Thyromegaly - Respiratory Exam Respiratory Exam: Clear to Auscultation Bilateral, NORMAL BREATHING PATTERN. absent: Wheezes - Cardiovascular Exam Cardiovascular Exam: REGULAR RHYTHM, +S1, +S2. absent: Tachycardia, Systolic Murmur - GI/Abdominal Exam GI & Abdominal Exam: Normal Bowel Sounds, Soft. absent: Distended, Tenderness - Rectal Exam Rectal Exam: Deferred - Extremities Exam Extremities exam: Positive for: pedal pulses present. Negative for: pedal edema , tenderness - Neurological Exam Neurological exam: Alert, Oriented x3 - Psychiatric Exam Psychiatric exam: Normal Affect, Normal Mood - Skin Skin Exam: Dry, Intact, Normal Color, Warm Results - Vital Signs Recent Vital Signs: Last Vital Signs Temp 98.4 F 01/27/18 15:50 Pulse 62 01/27/18 15:50 Resp 20 01/27/18 15:50 BP 114/76 01/27/18 15:50 Pulse Ox 96 08/28/18 15:50 - Labs Result Diagrams: 01/27/18 13:00 01/27/18 13:00 Assessment & Plan - Assessment and Plan (Free Text) Assessment: 62M, PMH of PE and left leg DVT (2015) on Eliquis, HTN, HLD, arthritis, gout, tobacco abuse, alcohol abuse, presented with shortness of breath, admitted to telemetry for new onset atrial fibrillation. Plan: 1. New Onset Atrial Fibrillation - Initial EKG showed Afib with RVR, HR 160s, patient given Metoprolol 25mg and 5mg IVP - Repeat EKG converted to normal sinus rhythm - Patient admitted to telemetry for continued monitoring - TSH 3.36 - Heart Rate currently in the 60s - Per Cardiology, Start Metoprolol 50mg PO BID with holding parameters (SBP < 100 or HR <60) - Continue home Eliquis 2.5mg - Cardiology, Dr. Daniel consulted, recommendations appreciated - ECHO ordered 2. Right sided Pleural Effusion - Currently afebrile with no leukocytosis - Asymptomatic - PA/Lateral CXR ordered for tomorrow (01/28) 3. History of PE and Left Leg DVT - Continue home Eliquis 4. History of Hyperlipidemia - Continue home Lipitor 5. History of Depression - Continue home buproprion - Patient takes Trazadone - Will hold home medication secondary to contraindication with arrhythmias 6. History of Tobacco Abuse - Advised on tobacco cessation - Discussed vaping cessation GI: Pepcid DVT: Eliquis Diet: HHD Dispo: Patient will be admitted to telemetry Case discussed and reviewed with Dr. Dong Mendoza PGY1 <Cynthia Umana R - Last Filed: 01/28/18 16:29> Results - Vital Signs Recent Vital Signs: Last Vital Signs Temp 98.6 F 01/28/18 12:00 Pulse 59 L 01/28/18 12:00 Resp 18 01/28/18 12:00 BP 120/82 01/28/18 12:00 Pulse Ox 100 01/28/18 06:00 - Labs Result Diagrams: 01/28/18 05:45 01/28/18 05:45 Labs: Laboratory Results - last 24 hr 01/28/18 01/28/18 01/28/18 05:45 05:45 05:45 WBC 6.9 RBC 4.86 Hgb 15.6 Hct 45.2 MCV 93.0 MCH 32.1 MCHC 34.5 RDW 13.2 Plt Count 132 MPV 9.4 PT 13.3 H INR 1.15 APTT 34.8 Sodium 141 Potassium 4.1 Chloride 104 Carbon Dioxide 29 Anion Gap 12 BUN 14 Creatinine 0.9 Est GFR ( Amer) > 60 Est GFR (Non-Af Amer) > 60 Random Glucose 89 Calcium 9.0 Phosphorus 3.3 Magnesium 2.0 Total Bilirubin 0.8 AST 37 ALT 44 Alkaline Phosphatase 86 Troponin I Total Protein 6.2 Albumin 3.6 Globulin 2.6 Albumin/Globulin Ratio 1.4 Triglycerides Cholesterol LDL Cholesterol Direct HDL Cholesterol 01/28/18 01/28/18 05:45 06:30 WBC RBC Hgb Hct MCV MCH MCHC RDW Plt Count MPV PT INR APTT Sodium Potassium Chloride Carbon Dioxide Anion Gap BUN Creatinine Est GFR ( Amer) Est GFR (Non-Af Amer) Random Glucose Calcium Phosphorus Magnesium Total Bilirubin AST ALT Alkaline Phosphatase Troponin I < 0.01 Total Protein Albumin Globulin Albumin/Globulin Ratio Triglycerides 116 Cholesterol 125 L LDL Cholesterol Direct 64 HDL Cholesterol 38 Attending/Attestation - Attestation I have personally seen and examined this patient.: Yes I have fully participated in the care of the patient.: Yes I have reviewed all pertinent clinical information: Yes Notes (Text): Patient seen and examined by me at 5:30PM with resident 01/27/18. Case including HPI, physical exam, and assessment and plan discussed with resident. Agree with above with following additions/corrections. Patient is a 62-year-old male with past medical history significant for pulmonary emboli, DVT, maintained on Eliquis, hypertension, hyperlipidemia, arthritis, gout, alcohol abuse, and tobacco abuse that presented to the emergency room with shortness of breath. Patient states that for approximately one month, he has been having episodes of shortness of breath that last a few seconds and go away. He states today, he was at his AA meeting when he started to have palpitations and shortness of breath that lasted about 15 minutes so he came into the emergency room. He also felt light headed and dizzy and believes it is because he started to feel anxious. He denies any current headaches or dizziness. No chest pain. Palpitations and shortness of breath resolved. No nausea, vomiting, or abdominal pain. No fevers or chills. No dysuria. Patient states he has a history of constipation. Last bowel movement was yesterday. 12 point review of systems reviewed by me. Please see above HPI. All other systems negative Physical exam: General: Awake and alert, lying in bed in no acute distress HEENT: Normocephalic, atraumatic. Extraocular muscles intact. No scleral icterus. Oropharynx is pink and moist. No pharyngeal erythema or exudate appreciated. Neck is supple. Cardiovascular: Normal rhythm. Normal S1, S2. No murmurs, rubs, or gallops appreciated Pulmonary: Normal respiratory effort. No rhonchi, rales, or wheezing appreciated. Gastrointestinal: Soft, nondistended, nontender. Positive bowel sounds all 4 quadrants, no guarding. Musculoskeletal: Normal range of motion all extremities, no calf tenderness, no edema appreciated Central nervous system: CN2-12 grossly intact. AAO x 3 Dermatologic: Skin warm and dry Assessment and plan: Patient is a 62-year-old male with past medical history significant for pulmonary emboli, DVT, maintained on Eliquis, hypertension, hyperlipidemia, arthritis, gout, alcohol abuse, and tobacco abuse that presented to the emergency room with shortness of breath. Patient found to have afib with RVR. 1. Atrial fibrillation with RVR. Patient given metoprolol 5mg IV and 25mg PO in the ED. Patient now in normal sinus rhythm. Patient's home metoprolol dose increased to 50mg PO BID per cardiology. Continue home eliquis. Cardiology consulted, recommendations appreciated. 2d echo ordered. TSH within normal limits 2. Right sided pleural effusion. Small, seen on chest xray. Follow up 2d echo, BNP, and repeat chest xray. 3. Hypercholesterolemia. Continue home lipitor 4. Depression. Continue home wellbutrin and trazadone 5. Tobacco abuse. Patient does vape daily. Patient counseled on cessation. 6. GI/DVT prophylaxis. Pepcid and eliquis 7. Patient is a full code. Case was discussed in detail with patient regarding current diagnosis and treatment plan.
[2018-01-27] MEDS ORDERED: Pneumococcal 23-Valent Vaccine IM ONE (18:27)
[2018-01-28 04:03] VITALS: RESP 18
[2018-01-28] MEDS ORDERED: Levothyroxine 175 MCG TAB PO SCH (06:00)
[2018-01-28 06:34] VITALS: O2SAT 100
[2018-01-28 06:43] LABS: HEMOGLOBIN 15.6 g/dL (14.0-18.0); MEAN CORPUSCULAR HEMOGLOBIN 32.1 pg (25.0-35.0); MEAN CORPUSCULAR HGB CONC 34.5 g/dl (31.0-37.0); MEAN PLATELET VOLUME 9.4 fl (7.0-11.0); RBC 4.86 10^6/uL (3.5-6.1); RED CELL DISTRIBUTION WIDTH 13.2 % (11.5-14.5); WHITE BLOOD COUNT 6.9 10^3/ul (4.5-11.0)
[2018-01-28 06:51] LABS: INR 1.15; PARTIAL THROMBOPLASTIN TIME 34.8 Seconds (25.1-36.5); PROTHROMBIN TIME 13.3 SECONDS (9.4-12.5)
[2018-01-28 06:54] LABS: ALB/GLOB RATIO 1.4 (1.1-1.8); ALBUMIN 3.6 g/dL (3.0-4.8); ALT/SGPT 44 U/L (7-56); AST/SGOT 37 U/L (17-59); BLOOD UREA NITROGEN 14 mg/dL (7-21); GFR NON-AFRICAN AMERICAN > 60
[2018-01-28 08:18] LABS: HDL CHOLESTEROL 38 mg/dL (29-60)
[2018-01-28 08:28] LABS: LDL CHOLESTEROL 64 mg/dL (0-129)
--- NOTE | 2018-01-28 09:59 | RAD ---
Date of service: 01/28/2018 HISTORY: pleural effusion COMPARISON: 01/27/2018 TECHNIQUE: Chest PA and lateral FINDINGS: LUNGS: No active pulmonary disease. PLEURA: Small right pleural effusion CARDIOVASCULAR: Normal. OSSEOUS STRUCTURES: No significant abnormalities. VISUALIZED UPPER ABDOMEN: Normal. OTHER FINDINGS: None. IMPRESSION: No active disease. Small right pleural effusion
[2018-01-28] MEDS ORDERED: buPROPion 150 mg/24 Hours XL Tab PO SCH (10:00)
--- NOTE | 2018-01-28 10:15 | CARD ---
APPROVED REPORT Date of service: 01/27/2018 EKG Measurement Heart [id number] <Conclusion> Atrial fibrillation with rapid ventricular response Nonspecific ST abnormality Abnormal ECG
--- NOTE | 2018-01-28 10:17 | CARD ---
APPROVED REPORT Date of service: 01/27/2018 EKG Measurement Heart [id number] <Conclusion> Normal sinus rhythm Normal ECG
[2018-01-28 12:19] VITALS: BP 120/82; PULSE 59; TEMP 98.6
--- NOTE | 2018-01-28 15:05 | CP.PCM.DIS ---
Provider - Provider Date of Admission: 01/27/18 14:54 Attending physician: Cynthia Umana DO Time Spent in preparation of Discharge (in minutes): 60 Diagnosis - Discharge Diagnosis (1) Afib Status: Acute Hospital Course - Lab Results Lab Results: Most Recent Lab Values WBC 6.9 10^3/ul (4.5-11.0) 01/28/18 05:45 RBC 4.86 10^6/uL (3.5-6.1) 01/28/18 05:45 Hgb 15.6 g/dL (14.0-18.0) 01/28/18 05:45 Hct 45.2 % (42.0-52.0) 01/28/18 05:45 MCV 93.0 fl (80.0-105.0) 01/28/18 05:45 MCH 32.1 pg (25.0-35.0) 01/28/18 05:45 MCHC 34.5 g/dl (31.0-37.0) 01/28/18 05:45 RDW 13.2 % (11.5-14.5) 01/28/18 05:45 Plt Count 132 10^3/uL (120.0-450.0) 01/28/18 05:45 MPV 9.4 fl (7.0-11.0) 01/28/18 05:45 Gran % 64.1 % (50.0-68.0) 01/27/18 13:00 Lymph % (Auto) 16.3 % (22.0-35.0) L 01/27/18 13:00 Marshall % (Auto) 15.5 % (1.0-6.0) H 01/27/18 13:00 Eos % (Auto) 3.4 % (1.5-5.0) 01/27/18 13:00 Baso % (Auto) 0.7 % (0.0-3.0) 01/27/18 13:00 Gran # 3.81 (1.4-6.5) 01/27/18 13:00 Lymph # (Auto) 1.0 (1.2-3.4) L 01/27/18 13:00 Marshall # (Auto) 0.9 (0.1-0.6) H 01/27/18 13:00 Eos # (Auto) 0.2 (0.0-0.7) 01/27/18 13:00 Baso # (Auto) 0.04 K/mm3 (0.0-2.0) 01/27/18 13:00 PT 13.3 SECONDS (9.4-12.5) H 01/28/18 05:45 INR 1.15 01/28/18 05:45 APTT 34.8 Seconds (25.1-36.5) 01/28/18 05:45 Sodium 141 mmol/L (132-148) 01/28/18 05:45 Potassium 4.1 mmol/L (3.6-5.0) 01/28/18 05:45 Chloride 104 mmol/L (98-107) 01/28/18 05:45 Carbon Dioxide 29 mmol/L (21-33) 01/28/18 05:45 Anion Gap 12 (10-20) 01/28/18 05:45 BUN 14 mg/dL (7-21) 01/28/18 05:45 Creatinine 0.9 mg/dl (0.8-1.5) 01/28/18 05:45 Est GFR ( Amer) > 60 01/28/18 05:45 Est GFR (Non-Af Amer) > 60 01/28/18 05:45 Random Glucose 89 mg/dL (70-110) 01/28/18 05:45 Calcium 9.0 mg/dL (8.4-10.5) 01/28/18 05:45 Phosphorus 3.3 mg/dL (2.5-4.5) 01/28/18 05:45 Magnesium 2.0 mg/dL (1.7-2.2) 01/28/18 05:45 Total Bilirubin 0.8 mg/dL (0.2-1.3) 01/28/18 05:45 AST 37 U/L (17-59) 01/28/18 05:45 ALT 44 U/L (7-56) 01/28/18 05:45 Alkaline Phosphatase 86 U/L (38-126) 01/28/18 05:45 Troponin I < 0.01 ng/mL 01/28/18 05:45 NT-Pro-B Natriuret Pep 104 pg/mL (0-450) 01/27/18 13:00 Total Protein 6.2 g/dL (5.8-8.3) 01/28/18 05:45 Albumin 3.6 g/dL (3.0-4.8) 01/28/18 05:45 Globulin 2.6 gm/dL 01/28/18 05:45 Albumin/Globulin Ratio 1.4 (1.1-1.8) 01/28/18 05:45 Triglycerides 116 mg/dL (35-160) 01/28/18 06:30 Cholesterol 125 mg/dL (130-200) L 01/28/18 06:30 LDL Cholesterol Direct 64 mg/dL (0-129) 01/28/18 06:30 HDL Cholesterol 38 mg/dL (29-60) 01/28/18 06:30 TSH 3rd Generation 3.36 mIU/mL (0.46-4.68) 01/27/18 13:00 - Hospital Course Hospital Course: Upon Admission: Patient is a 62 y/o M with a PMHx of PE and DVT treated 16 months prior to presentation, HTN, HLD, gout, and alcoholism presented to the ED on 01/28/2018 complaining of SOB since around noontime earlier that day. Patient was recently referred to clinical rn liaison Dr. Daniel by his PMD for a stress test in which patient states was normal. During this admission, patient reported experiencing associated heart palpitations. EKG was completed and revealed atrial fibrillation with rapid ventricular response. Patient was started on 5mg IVP toprolol. Cardiology was consulted with recommendations to take 50mg metoprolol at night and to continue eliquis as prescribed. Chest xray was ordered due to complaints of an associated cough at the time of presentation, revealing a small right-sided pleural effusion. Troponins returned negative x2 and follow- up ECG after metoprolol administration revealed normal sinus rhythm. Hospital Course: Patient was admitted to the hospitalist and place under telemetry for monitoring. TSH was ordered and returned within normal limits. Cardiology recommended continued home dose of Eliquis and Metoprolol 50mg with holding parameters. Patients anti-depression medications were stopped temporarily secondary to contraindication with arrhythmias. Repeat CXR was ordered confirming no active disease associated with the small pleural effusion. Upon Discharge Patient should follow up with PMD within 3-5 days of discharge. Patient should follow up with [facility] (Dr. Castro) as outpatient in 3-5 days of discharge. Cardiology signed off with recommendations to continue home dose of Eliquis and Metoprolol 25 mg BID. Discharge Exam - Head Exam Head Exam: ATRAUMATIC, NORMAL INSPECTION, NORMOCEPHALIC - Eye Exam Eye Exam: EOMI, Normal appearance, PERRL Pupil Exam: NORMAL ACCOMODATION, PERRL - ENT Exam ENT Exam: Mucous Membranes Moist, Normal Exam - Neck Exam Neck exam: Full Rom, Normal Inspection - Respiratory Exam Respiratory Exam: NORMAL BREATHING PATTERN. absent: Accessory Muscle Use, Chest Wall Tenderness, Rales, Rhonchi, Wheezes, Respiratory Distress - Cardiovascular Exam Cardiovascular Exam: RRR, +S1, +S2. absent: Systolic Murmur - GI/Abdominal Exam GI & Abdominal Exam: Normal Bowel Sounds, Soft, Unremarkable. absent: Rebound, Rigid, Tenderness - Extremities Exam Extremities exam: full ROM, normal capillary refill, pedal pulses present - Neurological Exam Neurological exam: Alert, Normal Gait, Oriented x3 - Skin Skin Exam: Dry, Intact, Normal Color, Warm Discharge Plan - Discharge Medications Prescriptions: Metoprolol Tartrate [Lopressor] 25 mg PO BID 30 Days tab - Follow Up Plan Condition: GOOD Disposition: HOME/ ROUTINE Instructions: Quitting Smoking for Older Adults, Atrial Fibrillation (DC), Shortness of Breath (Dyspnea) (DC), Palpitations (DC) Additional Instructions: 1) You are to follow up with your Primary Medical Doctor within 3-5 days of your discharge. 2) You are to follow up with a clinical rn liaison, Dr. Castro, within 3-5 days of your discharge. 3) You are continue taking take Metoprolol Tartarate 25 mg, twice a day and your Eliquis as prescribed. 4) You were [place] for atrial fibrillation with [place] heart [place] [facility] [place]. 5) Please return to the nearest Emergency Room if your symptoms return. Referrals: Cindy Castro MD [Staff Provider] - Van Ivey MD [Staff Provider] -
--- NOTE | 2018-01-28 18:05 | CARD ---
APPROVED REPORT Date of service: 01/28/2018 EXAM: Two-dimensional and M-mode echocardiogram with Doppler and color Doppler. INDICATION Atrial Fibrillation LV Function:SystolicDiastolic 2D DIMENSIONS Left Atrium (2D)4.0 (1.6-4.0cm)IVSd1.2 (0.7-1.1cm) LVDd4.1 (3.9-5.9cm)LVOT Diameter2.4 (1.8-2.4cm) PWd1.1 (0.7-1.1cm)LVDs3.0 (2.5-4.0cm) FS (%) 27.6 %LVEF (%)54.0 (>50%) M-Mode DIMENSIONS Aortic Root3.00 (2.2-3.7cm)Aortic Cusp Exc.0.70 (1.5-2.0cm) Aortic Valve AoV Peak Lpflscwb573.0cm/sAoV VTI51.2cmAO Peak GR.23mmHg LVOT Peak Qjqmlvyq45.6cm/sLVOT VTI20.50cmAO Mean GR.12mmHg KAITLYNN (VMAX)1.00fh1SUS (VTI)1.81cm2 Mitral Valve E/A ratio0.0 TDI E/Lateral E'0.0E/Medial E'0.0 LEFT VENTRICLE The left ventricle is normal size. There is borderline concentric left ventricular hypertrophy. The left ventricular function is normal.Ef-55-60% There is normal LV segmental wall motion. The left ventricular diastolic function is normal. No left ventricle thrombus noted on this study. There is no ventricular septal defect visualized. There is no left ventricular aneurysm. There is no mass noted in the left ventricle. RIGHT VENTRICLE The right ventricle is normal size. There is normal right ventricular wall thickness. The right ventricular systolic function is normal. ATRIA The left atrium is borderline dilated. The right atrium size is normal. The interatrial septum is intact with no evidence for an atrial septal defect. AORTIC VALVE The aortic valve is calcified and displays decreased opening. There is trace aortic regurgitation. There is mild to moderate valvular aortic stenosis.Peak gradient -23 mmof hg. There is no aortic valvular vegetation. MITRAL VALVE The mitral valve is thickened but opens well. Mitral regurgitation is trace. There is no mitral valve stenosis. There is no evidence of mitral valve prolapse. TRICUSPID VALVE The tricuspid valve leaflets are thickened , but open well. There is trace tricuspid regurgitation. There is no tricuspid valve stenosis. There is no tricuspid valve prolapse or vegetation. PULMONIC VALVE The pulmonary valve is normal in structure. There is trivial pulmonic valvular regurgitation. There is no pulmonic valvular stenosis. GREAT VESSELS The aortic root is normal in size. The ascending aorta is normal in size. The pulmonary artery is normal. The IVC is normal in size and collapses >50% with inspiration. PERICARDIAL EFFUSION There is no pleural effusion. There is no pericardial effusion. <Conclusion> The left ventricle is normal size. There is borderline concentric left ventricular hypertrophy. The left ventricular function is normal.Ef-55-60% There is trace aortic regurgitation. There is mild to moderate valvular aortic stenosis.Peak gradient -23 mmof hg. Mitral regurgitation is trace. There is trace tricuspid regurgitation. The IVC is normal in size and collapses >50% with inspiration. There is no pericardial effusion.
--- NOTE | 2018-01-28 20:36 | CON ---
Copied To: Cindy Castro MD Attending MD: Cindy Castro MD DATE: 01/28/2018 SERVICE: Cardiology. REASON FOR CONSULTATION: Followup atrial fibrillation with rapid ventricular rate, shortness of breath. BRIEF CLINICAL HISTORY: This is a 62-year-old male with past medical history significant for left DVT, 2016, on Eliquis, hypertension, paroxysmal atrial fibrillation, SVT, came in with complaint of mild shortness of breath, found to be in atrial fibrillation with rapid rate of 160. The patient was given metoprolol 25 mg and 5 mg IV push. The patient converted to normal sinus since the patient remained symptom free. PAST MEDICAL HISTORY: Significant for paroxysmal atrial fibrillation, alcohol abuse, history of DVT, PE on 12/26/2015, history of hypothyroidism, history of hypertension, hyperlipidemia, history of multiple PEs and history of atrial fibrillation, was spontaneously converted to normal sinus on multiple occasions, history of PE dated 12/26/2015, on Eliquis. PREVIOUS CARDIAC WORKUP: As follows: The patient had echocardiography on 12/26/2015 that shows ejection fraction preserved 55% to 60%, right ventricular systolic pressure 22, [id number] valvular aortic stenosis, valve area 1.5 cm2, trace aortic regurgitation, trace mitral regurgitation. The patient had a stress test 03/27/2016 that was negative, history of hypertension, history of hyperlipidemia. SOCIAL HISTORY: Used to smoke a pack a day, says he has cut down to 1 cigarette daily, but used Vapor and electronic cigarette, history of heavy alcohol abuse in the past, but now slowed down. FAMILY HISTORY: Mother of IL, father had [place], mother had a cancer. REVIEW OF SYSTEMS: As per HPI. CURRENT MEDICATIONS: The patient is taking at home trazodone 50 mg daily, tramadol, Wellbutrin, thiamine, sucralfate, levothyroxine, folic acid, Colace, atorvastatin, and Eliquis 2.5 p.o. b.i.d. LABORATORY DATA: Two EKGs; first EKG, admitting heart rate 126, atrial fibrillation. Second EKG shows normal sinus, rate of 56 yesterday. Blood workup as follows: WBC 6.9, hemoglobin 15.6, hematocrit 45.2, platelet count 132. Chemistry shows sodium 144, potassium 4.0, chloride 104, carbon dioxide 29, anion gap of 12, BUN 14, creatinine 0.9. IMPRESSION: Paroxysmal atrial fibrillation, admitted with atrial fibrillation with rapid ventricular rate, 5 mg of IV Lopressor was given and the patient converted to normal sinus. Resume medications. The patient had a stress test in the past, shows normal in 2016, history of paroxysmal atrial fibrillation, history of deep venous thrombosis, history of pulmonary embolism, history of tobacco abuse, history of alcohol abuse in the past, history of aortic stenosis. RECOMMENDATIONS: We will get lipid profile, TSH, hemoglobin A1c. We will get echo to assess LV function. Further recommendation with hospital course. Possibly discharge home today if remained stable. We will follow with you. Thank you, Dr. Umana, for providing us the opportunity in taking care of the patient, Guanako Zimmerman. Cindy Castro MD cc: Dr. Umana
== END 2018-01-28 15:27 | disposition home or self-care (01) ==
LOC: ED 12:39 → INTOOBSV 14:54 → ERH 14:54 → 2RNO 16:02
PROVIDERS: ADMIT Hospitalist; ATTEND Hospitalist
DX: I48.0 Paroxysmal atrial fibrillation (principal); I10 Essential (primary) hypertension; I35.0 Nonrheumatic aortic (valve) stenosis; J44.9 Chronic obstructive pulmonary disease, unspecified; J90 Pleural effusion, not elsewhere classified; E78.5 Hyperlipidemia, unspecified; M19.90 Unspecified osteoarthritis, unspecified site; M10.9 Gout, unspecified; E03.9 Hypothyroidism, unspecified; E78.00 Pure hypercholesterolemia, unspecified; F10.21 Alcohol dependence, in remission; F32.9 Major depressive disorder, single episode, unspecified; F17.210 Nicotine dependence, cigarettes, uncomplicated; Z79.01 Long term (current) use of anticoagulants; Z86.711 Personal history of pulmonary embolism; Z86.718 Personal history of other venous thrombosis and embolism; Z80.1 Family history of malignant neoplasm of trachea, bronchus and lung; Z82.3 Family history of stroke
CPT/HCPCS: 36415; 71045; 71046; 80053; 80061; 83735; 83880; 84100; 84443; 84484; 85025; 85027; 85610; 85730; 93005; 93306; 96374; 99283; G0378